=== PATIENT | male | born 1970 | race Caucasian/White ===

== ENCOUNTER 2024-01-27 09:32 | Inpatient (IN) | payer MEDICARE, SELFPAY ==
[2024-01-27] VITALS (7 sets, daily range): BP systolic 107–145; BP diastolic 65–74; PULSE 56–107; RESP 15–20; TEMP 36.9–37.7; O2SAT 95–99; BMI 37.8
--- NOTE | 2024-01-27 09:36 | ED_ITS ---
HPI - General Adult 2 General: Chief complaint: General Medical Stated complaint: fever, vomiting, headache, back pain Time Seen by Provider: 01/27/24 09:35 Source: patient History of Present Illness: 53-year-old male presents emergency room complaining of fever vomiting backache. He states his not been feeling well for the last 6 days he has had nausea and vomiting as well as diarrhea he denies any hematochezia or melena. He is on Xarelto has a history of DVT PE. He send need for hematuria dysuria or frequency Dicesare is concentrated and smells poorly. He has had abdominal cramping and pain radiating into his back. Onset (ago): day(s) (6) Location: abdomen Relieving factors: none Exacerbating factors: none Associated symptoms: Reports nausea, vomiting and weakness; Deny chest pain, confusion, cough, diaphoresis, decreased appetite, dyspnea, fevers/chills, headache(s), malaise, rash, palpitations, seizures, short of breath or syncope Treatments prior to arrival: none Review of Systems 2 Const: Denies: fever(s), chills, malaise or diaphoresis Card: Denies: chest pain, palpitations or syncope Resp: Denies: dyspnea GI: Reports: abdominal pain, nausea, vomiting, diarrhea and GI cramping : Reports: difficulty urinating; Denies: dysuria, urinary frequency or urinary urgency Musc: Denies: neck pain or back pain Skin/Breast: Denies: rash Neuro: Denies: headache(s) or confusion PFS ED 2 PFSH: Medical History (Updated 01/27/24 @ 15:47 by Tomas Alvarenga DO) Obstructive sleep apnea treated with bilevel positive airway pressure (BPAP) Settings 07/06 Diabetic neuropathy History of pulmonary embolism 2006, 1st episode, severe; has had recurrent clotting and in on lifelong anticoagulation with xarelto History of DVT (deep vein thrombosis) 2006, 1st onset, has had recurrent blood clots and is now on chronic anticoagulation with xarelto Dyslipidemia Hypertension Diabetes mellitus, type II, insulin dependent Surgical History (Updated 01/27/24 @ 14:09 by Yola Catalan MD) 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, nonhealing Hx of reduction of orbital fracture History of hip surgery bilateral hips at age 12 for what sounds like recurrent dislocation or dysplasia History of carpal tunnel release of both wrists left x 1, right x 1 History of back surgery low back x 2 Family History (Updated 01/27/24 @ 14:10 by Yola Catalan MD) Mother Colon cancer diagnosis in her early 50s Other Cancer of female organs Diabetes Heart disease Stroke Social History (Updated 01/27/24 @ 14:12 by Yola Catalan MD) Smoking and tobacco/nicotine status: never used tobacco/nicotine Alcohol intake: never Substance/Drug Use: former Former substance use details: has used THC for back pain control & after surgeries in past but none now Caregiver/support person: Yes Physical Exam 2 Const: GENERAL APPEARANCE: cooperative and comfortable O RIENTATION/CONSCIOUSNESS: Yes awake, Yes oriented to person, Yes oriented to place and Yes oriented to time HENMT: COMMON NORMALS: normocephalic, atraumatic and hearing grossly normal bilaterally HEAD & SCALP: normocephalic and atraumatic Resp: COMMON NORMALS: normal respiratory effort, No retractions, No use of accessory muscles and clear to auscultation bilaterally AUSCULTATION: clear to auscultation bilaterally Cardio: COMMON NORMALS: regular rate, regular rhythm and No murmurs present (Cardio) RATE: regular rate RHYTHM: regular rhythm GI: COMMON NORMALS: Soft to palpation and No hepatosplenomegaly present A USCULTATION: Yes normoactive bowel sounds PALPATION: Yes Soft to palpation, No Tenderness to palpation present (GI), No Guarding due to palpation present (GI) and Yes No hepatosplenomegaly present Extremity: COMMON NORMALS: normal to inspection, capillary refill normal, no clubbing, cyanosis or edema, no calf tenderness and no pedal edema Neuro: SENSORIUM/ORIENTATION: Yes oriented to person, Yes oriented to place and Yes oriented to time Skin: OTHER: Left great toe has puncture wounds is red and inflamed and swollen with obvious signs of infection extends proximally to the distal metatarsals Course 2 Vital Signs: Vital signs: Vital Signs Temperature 99.9 F H 01/27/24 09:47 Pulse Rate 98 01/27/24 15:02 Respiratory Rate 18 01/27/24 15:02 Blood Pressure 131/73 01/27/24 15:02 Pulse Oximetry 95 01/27/24 15:02 Oxygen Delivery Me thod Room Air 01/27/24 11:43 MDM - General Adult Medical Decision Making Patient has a mild cystitis additionally has cellulitis of the left great toe spreading proximally to the forefoot is red and inflamed he tells me this only came up within the last day or 2. He initially had not told us about the toe at all. Later in the visit he told us that he had stepped on something found significant swelling when we took his shoe off. Initially thought possibly the cystitis was a source of infection after having reviewed the toe I believe the cellulitis and osteomyelitis underlying is the cause of the infection and fever at this time. Discussed with Dr. Catalan. Admission orders entered. Medical Records I reviewed the patient's medical records. Lab Data I reviewed the patient's lab results. 01/27/24 10:15 01/27/24 10:15 Radiology Impressions Abdomen/Pelvis CT 01/27/24 10:00 IMPRESSION: 1. No hydronephrosis in either kidney. No obstructing renal or ureteral calculi. 2. Small esophageal hernia. 3. Normal appendix. 4. Postoperative changes lower lumbar spine described above. 5. Moderate central canal stenosis at L3-L4 and L4-L5 with disc osteophyte complexes. Chest X-Ray 01/27/24 10:00 IMPRESSION: No acute findings. Duplex Scan Lower Extremity Artery 01/27/24 14:00 IMPRESSION: Patent lower extremity arteries without hemodynamically significant stenosis, with the caveat that the left peroneal artery and left anterior tibial artery were not documented. Foot X-Ray 01/27/24 14:00 IMPRESSION: 1. High concern for osteomyelitis involving the heads of the 2nd and 3rd metatarsals. 2. Erosion and osseous destruction at the tip of the 2nd toe distal phalanx. Highly concerning for osteomyelitis. 3. Severe forefoot and 2nd toe cellulitis/edema. COMMENTS: Consider correlation with MRI. Laboratory Results WBC 15.85 10^3/uL (3.29-11.43) H 01/27/24 10:15 RBC 4.57 10^6/uL (3.85-5.65) 01/27/24 10:15 Hgb 12.90 g/dL (11.27-16.99) 01/27/24 10:15 Hct 39.6 % (37-53) 01/27/24 10:15 MCV 86.7 fl (82-101) 01/27/24 10:15 MCH 28.2 pg (27-33) 01/27/24 10:15 MCHC 32.6 g/dL (30-55) 01/27/24 10:15 RDW 14.2 % (12.1-15.1) 01/27/24 10:15 Plt Count 201 10^3/cmm (157-399) 01/27/24 10:15 MPV 9.5 fL (7.4-10.4) 01/27/24 10:15 Neut % (Auto) 71.4 % 01/27/24 10:15 Lymph % (Auto) 15.3 % 01/27/24 10:15 Hitchcock % (Auto) 11.2 % 01/27/24 10:15 Eos % (Auto) 1.1 % 01/27/24 10:15 Baso % (Auto) 0.4 % 01/27/24 10:15 Neut # (Auto) 11.32 10^3/uL (1.8-7.7) H 01/27/24 10:15 Lymph # (Auto) 2.4 10^3/uL (0.8-4.8) 01/27/24 10:15 Hitchcock # (Auto) 1.8 10^3/uL (0.2-0.9) H 01/27/24 10:15 Eos # (Auto) 0.2 10^3/uL (0.0-0.8) 01/27/24 10:15 Baso # (Auto) 0.1 10^3/uL (0.0-0.1) 01/27/24 10:15 Nucleated RBC % (auto) 0 % 01/27/24 10:15 Nucleated RBCs # 0.0 /100WBC 01/27/24 10:15 Sodium 133 mmol/L (136-145) L 01/27/24 10:15 Potassium 4.2 mmol/L (3.5-5.1) 01/27/24 10:15 Chloride 97 mmol/L (98-107) L 01/27/24 10:15 Carbon Dioxide 25 mmol/L (22-29) 01/27/24 10:15 Anion Gap 15.2 (5-19) 01/27/24 10:15 BUN 12 mg/dL (6-20) 01/27/24 10:15 Creatinine 1.0 mg/dL (0.7-1.2) 01/27/24 10:15 GFR Calculation 78.2 mL/min (90-130) L 01/27/24 10:15 Glucose 257 mg/dL (65-115) H 01/27/24 10:15 Calculated Osmolality 285 mOsm/kg (285-295) 01/27/24 10:15 Lactic Acid 2.5 mmol/L (0.5-2.2) H 01/27/24 10:15 Lactic Acid (Sepsis) 1.8 mmol/L (0.5-2.2) 01/27/24 13:42 Calcium 8.6 mg/dL (8.5-10.5) 01/27/24 10:15 Magnesium 1.6 mg/dL (1.7-2.3) L 01/27/24 10:15 Total Bilirubin 0.6 mg/dL (0.15-1.2) 01/27/24 10:15 AST 15 U/L (0-40) 01/27/24 10:15 ALT 23 U/L (0-41) 01/27/24 10:15 Alkaline Phosphatase 81 U/L (40-130) 01/27/24 10:15 Creatine Kinase 183 U/L (39-308) 01/27/24 10:15 Troponin T 5th Gen ng/L 33 ng/L (0-15) H 01/27/24 13:42 Total Protein 7.6 g/dL (6.6-8.7) 01/27/24 10:15 Albumin 3.7 g/dL (3.5-5.2) 01/27/24 10:15 Globulin 3.9 g/dL (1.3-4.6) 01/27/24 10:15 Lipase 26 U/L (13-60) 01/27/24 10:15 Urine Color Yellow (Yellow) 01/27/24 11:50 Urine Appearance Clear (CLEAR) 01/27/24 11:50 Urine pH 5 (5-7) 01/27/24 11:50 Ur Specific Lowry 1.015 (1.005-1.030) 01/27/24 11:50 Urine Protein Trace (Negative) 01/27/24 11:50 Urine Glucose (UA) 4+ (Normal) H 01/27/24 11:50 Urine Ketones 1+ (Negative) H 01/27/24 11:50 Urine Blood Neg (Negative) 01/27/24 11:50 Urine Nitrate Positive (Negative) H 01/27/24 11:50 Urine Bilirubin Neg (Negative) 01/27/24 11:50 Urine Urobilinogen 1 mg/dL (Negative) H 01/27/24 11:50 Ur Leukocyte Esterase Negative (Negative) 01/27/24 11:50 Urine RBC None /hpf (0-2) 01/27/24 11:50 Urine WBC None /hpf (0-5) 01/27/24 11:50 Ur Squamous Epith Cells Rare /hpf (0-5) 01/27/24 11:50 Amorphous Sediment Not Reportable 01/27/24 11:50 Urine Bacteria 1+ /hpf (NONE) H 01/27/24 11:50 Urine Mucus 1+ /hpf 01/27/24 11:50 Adenovirus (PCR) Not detected (NOT DETECT) 01/27/24 13:20 C. pneumoniae DNA (PCR) Not detected (NOT DETECT) 01/27/24 13:20 Coronavirus 229E (PCR) Not detected (NOT DETECT) 01/27/24 13:20 Human Metapneumovir PCR Not detected (NOT DETECT) 01/27/24 13:20 Influenza A (H1) PCR Not detected (NOT DETECT) 01/27/24 13:20 Influ A (H1/09) PCR Not detected (NOT DETECT) 01/27/24 13:20 Influenza A (H3) PCR Not detected (NOT DETECT) 01/27/24 13:20 Influenza Type A (PCR) Not detected (NOT DETECT) 01/27/24 13:20 Influenza Type B (PCR) Not detected (NOT DETECT) 01/27/24 13:20 M. pneumoniae (PCR) Not detected (NOT DETECT) 01/27/24 13:20 Parainfluenza 1 (PCR) Not detected (NOT DETECT) 01/27/24 13:20 Parainfluenza 2 (PCR) Not detected (NOT DETECT) 01/27/24 13:20 Parainfluenza 3 (PCR) Not detected (NOT DETECT) 01/27/24 13:20 Parainfluenza 4 (PCR) Not detected (NOT DETECT) 01/27/24 13:20 RSV Type A (PCR) Not detected (NOT DETECT) 01/27/24 13:20 RSV Type B (PCR) Not detected (NOT DETECT) 01/27/24 13:20 Entero/Rhino (PCR) Not detected (NOT DETECT) 01/27/24 13:20 SARS-CoV-2 (PCR) Not detected (NOT DETECT) 01/27/24 13:20 All radiology interpretation(s) finalized by discharge Discharge Plan Discharge Patient Disposition: Admitted As Inpatient Admit Provider: Yola Catalan Clinical Impression: Cellulitis of toe of left foot, Diabetic neuropathy, Diabetes mellitus, type II, insulin dependent, Cystitis Condition: Stable Coding Level of Care Code ED Cephalometric Analyst for Tavo Rodrigues
--- NOTE | 2024-01-27 10:00 | XRR_ITS ---
PROCEDURE INFORMATION: Exam: XR Chest Exam date and time: 01/27/2024 10:05 AM Age: 53 years old Clinical indication: Cough and dyspnea; Additional info: Dyspnea/cough TECHNIQUE: Imaging protocol: Radiologic exam of the chest. Views: 1 view. COMPARISON: No relevant prior studies available. FINDINGS: Lungs: Unremarkable. No consolidation. Pleural spaces: Unremarkable. No pleural effusion. No pneumothorax. Heart/Mediastinum: Unremarkable. No cardiomegaly. Bones/joints: Unremarkable. XR/XR chest 1V portable [id number] IMPRESSION: No acute findings.
--- NOTE | 2024-01-27 10:00 | CT_ITS ---
WS: [id number] CT ABDOMEN PELVIS TECHNIQUE: Noncontrast CT of the abdomen and pelvis with coronal and sagittal reformatted images. CLINICAL INFORMATION: Abdominal pain COMPARISON: None. DLP: 1308.[address] scans at [facility] use at least one of these dose optimization techniques: automated e xposure control; mA and/or kV adjustment per patient size (includes targeted exams where dose is matc hed to clinical indication); or iterative reconstruction. FINDINGS: Hepatomegaly. Normal noncontrast liver. Small esophageal hernia. Noncontrast spleen is normal. Spleni c artery calcification. Adrenal glands are normal. No hydronephrosis in either kidney. No obstructing renal or ureteral calculi. Normal caliber abdominal aorta. Urine distended bladder. Normal appendix in the RIGHT lower quadrant. Small LEFT renal cyst. Lung bases are well aerated. Prior postoperative changes pedicle screw fixation L5-S1 with interbody fusion graft. Disc osteophyte complexes L3-L4 and L4-L5 with moderate central canal stenosis. Mild ce ntral canal stenosis L2-3 with mild disc bulging. CT/CT abdomen pelvis con [id number] IMPRESSION: 1. No hydronephrosis in either kidney. No obstructing renal or ureteral calcul i. 2. Small esophageal hernia. 3. Normal appendix. 4. Postoperative changes lower lumbar spine described above. 5. Moderate central canal stenosis at L3-L4 and L4-L5 with disc osteophyte com plexes.
[2024-01-27 10:22] LABS: Basophils # 0.1 10^3/uL (0.0-0.1); Basophils % 0.4 %; Eosinophils # 0.2 10^3/uL (0.0-0.8); Eosinophils % 1.1 %; Hematocrit 39.6 % (37-53); Lymphocytes # 2.4 10^3/uL (0.8-4.8); Lymphocytes % 15.3 %; Mean Corpuscular HGB Conc 32.6 g/dL (30-55); Mean Corpuscular Hemoglobin 28.2 pg (27-33); Mean Corpuscular Volume 86.7 fl (82-101); Mean Platelet Volume 9.5 fL (7.4-10.4); Monocytes # 1.8 10^3/uL (0.2-0.9); Monocytes % 11.2 %; Neutrophils # 11.32 10^3/uL (1.8-7.7); Neutrophils % 71.4 %; Nucleated Red Blood Cells % 0 %; Platelet Count 201 10^3/cmm (157-399); Red Blood Count 4.57 10^6/uL (3.85-5.65); Red Cell Distribution Width 14.2 % (12.1-15.1); White Blood Count 15.85 10^3/uL (3.29-11.43)
[2024-01-27 10:40] LABS: Lactic Sepsis W/Reflex 2.5 mmol/L (0.5-2.2)
[2024-01-27 10:41] LABS: Alanine Aminotransferase 23 U/L (0-41); Albumin Level 3.7 g/dL (3.5-5.2); Alkaline Phosphatase 81 U/L (40-130); Anion Gap 15.2 (5-19); Aspartate Amino Transferase 15 U/L (0-40); Blood Urea Nitrogen 12 mg/dL (6-20); Calcium 8.6 mg/dL (8.5-10.5); Carbon Dioxide 25 mmol/L (22-29); Chloride 97 mmol/L (98-107); Creatine Phosphokinase 183 U/L (39-308); Creatinine Clr Calc Pharmacy 124.2698; Globulin 3.9 g/dL (1.3-4.6); Glomerular Filtration Rate 78.2 mL/min (90-130); Glucose 257 mg/dL (65-115); Lipase 26 U/L (13-60); Magnesium 1.6 mg/dL (1.7-2.3); Osmolality Calculated 285 mOsm/kg (285-295); Potassium 4.2 mmol/L (3.5-5.1); Sodium 133 mmol/L (136-145); Total Bilirubin 0.6 mg/dL (0.15-1.2); Total Protein 7.6 g/dL (6.6-8.7)
[2024-01-27] MEDS: cefTRIAXone 1,000 MG in sodium chloride 0.9% (plus) 50 ML 100 MG IV (11:27)
[2024-01-27 12:06] LABS: Reflex Lactate Order REFLEX LACTIC ORDERD
[2024-01-27 12:33] LABS: Glucose Urine UA 4+ (Normal); Protein Urine Trace (Negative); Specific Gravity, Urine 1.015 (1.005-1.030); Urine Appearance Clear (CLEAR); Urine Color Yellow (Yellow); pH Urine 5 (5-7)
[2024-01-27 12:34] LABS: Add Urine Microscopic? YES; Bacteria Urine 1+ /hpf; Bilirubin Urine Neg (Negative); Blood Urine Neg (Negative); Ketones Urine 1+ (Negative); Leukocyte Esterase Urine Negative (Negative); Mucus Urine 1+ /hpf; Nitrate Urine Positive (Negative); Squamous Epithelial Cell Urine RARE /hpf (0-5); Urobilinogen Urine 1 mg/dL (Negative)
[2024-01-27] MEDS: acetaminophen 500 mg Tablet 1000 MG PO (12:48)
--- NOTE | 2024-01-27 13:03 | ECG_ITS ---
[facility] Test Date: 2024-01-27 Pat Name: Zach Crespo Department: Room: Gender: Male Adult Neuropsychologist: : 1970 Requested By: Tomas Wolff Order Number: [id number] Karin MD: Srinivasan Arias M.D. Measurements Intervals Winger Rate: 96 P: 58 TX: 246 QRS: 111 QRSD: 112 T: -5 QT: 349 QTc: 441 Interpretive Statements SINUS RHYTHM WITH FIRST DEGREE AV BLOCK POSSIBLE RIGHT VENTRICULAR HYPERTROPHY [SOME/ALL OF: PROMINENT R IN V1, LATE TRANSITION, RAD, JOHN, SSS] ABNORMAL QRS-T ANGLE [QRS-T AXIS DIFFERENCE > 60] No previous ECG available for comparison Electronically Signed On 01-27-2024 17:19:20 CDT by Srinivasan Arias M.D. [email or web address]
--- NOTE | 2024-01-27 13:20 | PM.HP ---
Providers/Chief Complaint Admitting Physician: Yola Catalan MD Primary Care Provider: Alejandrina Omalley Chief Complaint: fever, vomiting, headache, back pain History of Present Illness Zach Crespo is a 53 year old male who presented to the emergency room with chief complaint of not feeling well for close to a week. He describes being excessively tired and fatigued. He has had increase in his baseline low back pain as well as some hip pain. He has had surgery in both areas but has had more difficulty getting comfortable lately. He has had significant belching and flatulence but denies any diarrhea or vomiting. He started having subjective fevers 2 to 3 days ago. At times he is dizzy with position changes and is noted some hyperventilation and palpitations. He has had a mild cough productive of clearish phlegm. No blood has been noted. Denies any difficulty urinating. He has had decreased appetite. It was the overall malaise that had him come in today. Workup in the emergency room revealed the possibility of urinary tract infection with positive nitrates on urinalysis but Mr. Crespo denies any urinary symptoms beyond noting his urine has been more concentrated lately. He had an elevated lactic acid but stable vital signs. White count was elevated. He received IV fluids and some Rocephin in the emergency room and request was made for admission for further evaluation and treatment. During my evaluation Mr. Crespo mentioned he stepped on a metal screw 2 to 3 weeks ago with the screw extending may be in eighth of an inch into his left foot. It has been slow to heal. Additionally he attempted to cut the nails to his left foot and cut the tip of the second digit and fourth digit in the process. Upon evaluating the foot with his sock off he was surprised to see that the second toe of the left foot was quite swollen and extensively erythematous. Both him and his mother who were present in the room said that the toe did not look like that yesterday just had dry scaling skin from where he had cut it trimming his nails. He has had previous left great toe amputation due to an acute infectious process. This was performed in [facility] where he is from. He does describe some pain in both of his legs. 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 He has been using his compression stockings lately due to the discomfort in his legs. No increase in swelling has been noted however. Review of Systems General: Reports: Other (ROS as per HPI or as otherwise noted here) Medications/Allergies Home Medications Medication Instructions Recorded Confirmed Last Taken Type amlodipine 5 mg tablet 5 mg PO DAILY 01/27/24 01/27/24 01/27/24 History atorvastatin 40 mg tablet 40 mg PO QPM 01/27/24 01/27/24 01/26/24 History dulaglutide 3 mg/0.5 mL 3 mg SUBCUT Q7D 01/27/24 01/27/24 01/25/24 History subcutaneous pen injector (Trulicity) gabapentin 300 mg capsule 600 mg PO BID 01/27/24 01/27/24 01/27/24 History hydrochlorothiazide 25 mg tablet 25 mg PO DAILY 01/27/24 01/27/24 01/27/24 History insulin glargine 100 unit/mL (3 75 unit SUBCUT BID 01/27/24 01/27/24 01/27/24 History mL) subcutaneous pen (Lantus Solostar U-100 Insulin) insulin lispro 100 unit/mL See Rx Instructions .Route .COMPLEX 01/27/24 01/27/24 01/27/24 History subcutaneous pen (Humalog KwikPen (U-100) Insulin) lisinopril 5 mg tablet 5 mg PO DAILY 01/27/24 01/27/24 01/27/24 History metformin 1,000 mg tablet 1,000 mg PO BID 01/27/24 01/27/24 01/27/24 History rivaroxaban 20 mg tablet (Xarelto) 20 mg PO BEDTIME 01/27/24 01/27/24 01/26/24 History venlafaxine 75 mg capsule,extended 75 mg PO DAILY 01/27/24 01/27/24 01/27/24 History release 24 hr Allergies Allergy/AdvReac Type Severity Reaction Status Date / Time No Known Allergies Allergy Verified 01/27/24 09:51 PFSH Acute PFSH: Medical History (Updated 01/27/24 @ 16:43 by Kenny Wesley DPM) Obstructive sleep apnea treated with bilevel positive airway pressure (BPAP) Settings 07/06 Diabetic neuropathy History of pulmonary embolism 2006, 1st episode, severe; has had recurrent clotting and in on lifelong anticoagulation with xarelto History of DVT (deep vein thrombosis) 2006, 1st onset, has had recurrent blood clots and is now on chronic anticoagulation with xarelto Dyslipidemia Hypertension Diabetes mellitus, type II, insulin dependent Surgical History (Updated 01/27/24 @ 20:05 by Yola Catalan MD) 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, nonhealing Hx of reduction of orbital fracture History of hip surgery bilateral hips at age 12 for what sounds like recurrent dislocation or dysplasia History of carpal tunnel release of both wrists left x 1, right x 1 History of back surgery low back x 2 Family History (Updated 01/27/24 @ 14:10 by Yola Catalan MD) Mother Colon cancer diagnosis in her early 50s Other Cancer of female organs Diabetes Heart disease Stroke Social History (Updated 01/27/24 @ 14:12 by Yola Catalan MD) Smoking and tobacco/nicotine status: never used tobacco/nicotine Alcohol intake: never Substance/Drug Use: former Former substance use details: has used THC for back pain control & after surgeries in past but none now Caregiver/support person: Yes Vitals/I&O/Wt Last Vital Signs Temp 99.9 F H 01/27/24 09:47 Pulse 56 L 01/27/24 11:43 Resp 16 01/27/24 11:43 BP 107/65 01/27/24 11:43 Pulse Ox 98 01/27/24 11:43 O2 Del Method Room Air 01/27/24 11:43 01/26/24 01/27/24 01/27/24 22:59 06:59 14:59 Intake Total 50 / 50 Balance 50 / 50 Weight last 48 hrs Weight 133.81 kg Physical Exam Narrative: Patient is awake and alert, able to provide history. Normocephalic. Extraocular movements are intact. Oropharynx with moist mucous membranes. Neck is large but supple. Lungs are clear to auscultation without any rales rhonchi or wheezes noted cardiovascular exam reveals a regular rhythm, bradycardic without any murmurs. Abdomen is soft, nontender with positive bowel sounds. No flank tenderness. Trace pitting edema noted to bilateral lower extremities. Compression stockings removed during evaluation as were his socks. See below picture for skin exam. Area around the left second toe is warm to touch. No focal area of fluctuance noted at this time. Streaking is extending to midfoot. Skin: NARRATIVE SKIN EXAM: Bottom of left foot Top of left foot Data 01/27/24 10:15 01/27/24 10:15 Other Labs: Radiology Impressions Abdomen/Pelvis CT 01/27/24 10:00 IMPRESSION: 1. No hydronephrosis in either kidney. No obstructing renal or ureteral calculi. 2. Small esophageal hernia. 3. Normal appendix. 4. Postoperative changes lower lumbar spine described above. 5. Moderate central canal stenosis at L3-L4 and L4-L5 with disc osteophyte complexes. Chest X-Ray 01/27/24 10:00 IMPRESSION: No acute findings. Laboratory Results WBC 15.85 10^3/uL (3.29-11.43) H 01/27/24 10:15 RBC 4.57 10^6/uL (3.85-5.65) 01/27/24 10:15 Hgb 12.90 g/dL (11.27-16.99) 01/27/24 10:15 Hct 39.6 % (37-53) 01/27/24 10:15 MCV 86.7 fl (82-101) 01/27/24 10:15 MCH 28.2 pg (27-33) 01/27/24 10:15 MCHC 32.6 g/dL (30-55) 01/27/24 10:15 RDW 14.2 % (12.1-15.1) 01/27/24 10:15 Plt Count 201 10^3/cmm (157-399) 01/27/24 10:15 MPV 9.5 fL (7.4-10.4) 01/27/24 10:15 Neut % (Auto) 71.4 % 01/27/24 10:15 Lymph % (Auto) 15.3 % 01/27/24 10:15 Cavalier % (Auto) 11.2 % 01/27/24 10:15 Eos % (Auto) 1.1 % 01/27/24 10:15 Baso % (Auto) 0.4 % 01/27/24 10:15 Neut # (Auto) 11.32 10^3/uL (1.8-7.7) H 01/27/24 10:15 Lymph # (Auto) 2.4 10^3/uL (0.8-4.8) 01/27/24 10:15 Cavalier # (Auto) 1.8 10^3/uL (0.2-0.9) H 01/27/24 10:15 Eos # (Auto) 0.2 10^3/uL (0.0-0.8) 01/27/24 10:15 Baso # (Auto) 0.1 10^3/uL (0.0-0.1) 01/27/24 10:15 Nucleated RBC % (auto) 0 % 01/27/24 10:15 Nucleated RBCs # 0.0 /100WBC 01/27/24 10:15 Sodium 133 mmol/L (136-145) L 01/27/24 10:15 Potassium 4.2 mmol/L (3.5-5.1) 01/27/24 10:15 Chloride 97 mmol/L (98-107) L 01/27/24 10:15 Carbon Dioxide 25 mmol/L (22-29) 01/27/24 10:15 Anion Gap 15.2 (5-19) 01/27/24 10:15 BUN 12 mg/dL (6-20) 01/27/24 10:15 Creatinine 1.0 mg/dL (0.7-1.2) 01/27/24 10:15 GFR Calculation 78.2 mL/min (90-130) L 01/27/24 10:15 Glucose 257 mg/dL (65-115) H 01/27/24 10:15 Calculated Osmolality 285 mOsm/kg (285-295) 01/27/24 10:15 Lactic Acid 2.5 mmol/L (0.5-2.2) H 01/27/24 10:15 Calcium 8.6 mg/dL (8.5-10.5) 01/27/24 10:15 Magnesium 1.6 mg/dL (1.7-2.3) L 01/27/24 10:15 Total Bilirubin 0.6 mg/dL (0.15-1.2) 01/27/24 10:15 AST 15 U/L (0-40) 01/27/24 10:15 ALT 23 U/L (0-41) 01/27/24 10:15 Alkaline Phosphatase 81 U/L (40-130) 01/27/24 10:15 Creatine Kinase 183 U/L (39-308) 01/27/24 10:15 Total Protein 7.6 g/dL (6.6-8.7) 01/27/24 10:15 Albumin 3.7 g/dL (3.5-5.2) 01/27/24 10:15 Globulin 3.9 g/dL (1.3-4.6) 01/27/24 10:15 Lipase 26 U/L (13-60) 01/27/24 10:15 Urine Color Yellow (Yellow) 01/27/24 11:50 Urine Appearance Clear (CLEAR) 01/27/24 11:50 Urine pH 5 (5-7) 01/27/24 11:50 Ur Specific Regent 1.015 (1.005-1.030) 01/27/24 11:50 Urine Protein Trace (Negative) 01/27/24 11:50 Urine Glucose (UA) 4+ (Normal) H 01/27/24 11:50 Urine Ketones 1+ (Negative) H 01/27/24 11:50 Urine Blood Neg (Negative) 01/27/24 11:50 Urine Nitrate Positive (Negative) H 01/27/24 11:50 Urine Bilirubin Neg (Negative) 01/27/24 11:50 Urine Urobilinogen 1 mg/dL (Negative) H 01/27/24 11:50 Ur Leukocyte Esterase Negative (Negative) 01/27/24 11:50 Urine RBC None /hpf (0-2) 01/27/24 11:50 Urine WBC None /hpf (0-5) 01/27/24 11:50 Ur Squamous Epith Cells Rare /hpf (0-5) 01/27/24 11:50 Amorphous Sediment Not Reportable 01/27/24 11:50 Urine Bacteria 1+ /hpf (NONE) H 01/27/24 11:50 Urine Mucus 1+ /hpf 01/27/24 11:50 Micro: Microbiology 01/27/24 10:45 Blood Culture - Preliminary Blood SPECIMEN COLLECTED 01/27/24 10:25 Blood Culture - Preliminary Blood SPECIMEN COLLECTED A&P Assessment and plan (1) Cellulitis of toe of left foot: Second digit. Status post prior amputation of the left first digit due to infection. Source of infection may be from recent stepping on a metal screw or attempting to clip his nails on that foot. Cannot rule out contiguous infection from prior first toe wound. That amputation was roughly a year ago by history. Patient and his mother indicate that the toe looked normal except for the scabbing from the cuts yesterday. Concerned about early abscess formation and even deeper infection given systemic symptoms and early indicators of at least systemic inflammatory response syndrome with elevated white blood count and lactic acid but normal vital signs at this time. Has had subjective fevers. (2) Diabetes mellitus, type II, insulin dependent: With peripheral neuropathy and likely chronic kidney disease stage II which would be a new diagnosis, currently with hyperglycemia. Chronically on U100 Lantus, Humalog, Trulicity and metformin. (3) Diabetic neuropathy: Severe, involving hands and feet, chronically on gabapentin (4) Chronic anticoagulation: Chronically on Xarelto secondary to history of recurrent PEs and DVTs dating back to 2006. Anticoagulation will be lifelong for him. (5) Hypertension: Primary hypertension managed with amlodipine and lisinopril along with hydrochlorothiazide (6) Dyslipidemia: Chronically on statin therapy (7) Obstructive sleep apnea treated with bilevel positive airway pressure (BPAP): Chronically on BiPAP with settings 07/06 which he uses regularly (8) BMI 37.0-37.9, adult: Plan Hypomagnesemia Moderate acute dehydration versus chronic kidney disease stage 2 Abnormal urinalysis with positive nitrates but no urinary symptoms or pyuria noted Inpatient admission Check plain films of right foot Podiatry consultation For the time being we will continue Rocephin and add vancomycin Continue insulin therapy for diabetes Holding Trulicity and metformin Check hemoglobin A1c Continue home gabapentin Currently continuing Xarelto pending evaluation by podiatry; may require surgical intervention on his foot which will necessitate holding of Xarelto Holding home hydrochlorothiazide and lisinopril currently secondary to GFR of 78 and low normal blood pressures in the setting of infection though will need to monitor for resumption Continuing some IV fluids presently Continue home amlodipine Continue home statin therapy Will order BiPAP with sleep, okay to bring in home device if more comfortable for him Will replace magnesium Repeat renal function studies in the morning Tetanus vaccination booster discussed with patient and will be ordered VTE prophylaxis: Chronically on Xarelto GI Prophylaxis: PPI Antibiotics: Received Rocephin in the ED and vancomycin was added to this both on 01/26 Pending studies: Plain film of the left foot, a.m. labs including A1c, CRP and sed rate, blood cultures Telemetry: not currently indicated Guerrero: not currently indicated Line(s): peripheral IVs Disposition plan: Home with outpatient follow up to both primary care and podiatry anticipated plus or minus wound care should he require surgical intervention Code Status: Full Code Supportive care otherwise Findings, concerns and plans were discussed with patient and his mother and they were both given an opportunity to ask questions During our discussion it came to light that patient's mother was diagnosed with colon cancer in her 50s. Patient has never had a colonoscopy. Reviewed with him risk of not getting regular colonoscopies when you have a first-degree relative with a history of colon cancer. Discussed the benefits of identifying cancer early to avoid chemotherapy and other treatments which can impact over all health. Patient indicated that he would work on getting a colonoscopy set up after this infection clears. Attestations Medical Necessity Statement*: Currently anticipate a stay greater than 2 midnights in this gentleman presenting with symptoms as described but found to have cellulitis and likely early abscess formation in the left foot second digit. He has had prior left great toe amputation due to infection. Known diabetic and recently had trauma to the left foot from stepping on a screw and attempting to cut his toenails. Had markers of at least systemic inflammatory response syndrome if not early sepsis by sep 1 criteria though not meeting sepsis 3 criteria at the time of admission. At risk of rapid clinical decline without appropriate intervention including Parenteral antibiotic therapy given comorbidities and prior history as well as clinical findings on today's exam. Diagnoses Cellulitis of toe of left foot L03.032 Diabetes mellitus, type II, insulin dependent E11.9; Z79.4 Diabetic neuropathy E11.40 Chronic anticoagulation Z79.01 Hypertension I10 Dyslipidemia E78.5 Obstructive sleep apnea treated with bilevel positive airway pressure (BPAP) G47.33 BMI 37.0-37.9, adult Z68.37
--- NOTE | 2024-01-27 14:00 | USCV_ITS ---
Zach Crespo Age: 53 Gender: M : 1970 Exam Date: 01/27/2024 14:27 Ordering Phys: Yola Catalan MD Technologist: Exam Location: [facility] [place] Indication: lt leg pain and swelling PROCEDURES: Venous duplex imaging was performed in only the left lower extremity. The following venous structures were evaluated: common femoral vein, profunda vein, proximal portion of the greater saphenous vein, superficial femoral vein, and the popliteal vein. In addition, the posterior tibial and peroneal trunk were evaluated. FINDINGS: Normal 2-D Doppler and augmentation and compressibility throughout the lower extremity venous structures. Additional imaging through the proximal calf veins also reveals no thrombus. Limited evaluation of the greater saphenous vein is patent with no thrombus. CONCLUSIONS No evidence of left lower extremity DVT. Sanjiv Reyes MD (Electronically Signed) Final Date: 27 January 2024 16:32 S
--- NOTE | 2024-01-27 14:00 | USR_ITS ---
PROCEDURE INFORMATION: Exam: US Duplex Left Lower Extremity Arteries Or Arterial Bypass Grafts Exam date and time: 01/27/2024 2:40 PM Age: 53 years old Clinical indication: Pain; Leg, lower; Left; Additional info: HX blood clots, prior toe amp, cellulitic toe again TECHNIQUE: Imaging protocol: Left Real-time duplex scan of the arteries or arterial bypass grafts of the left lower extremity with 2-D sierra scale, color Doppler flow and spectral waveform analysis. Images documented and saved. COMPARISON: CT abdomen pelvis wo con [id number] 01/27/2024 10:28 AM FINDINGS: Left external iliac artery: Patent left common iliac artery without hemodynamically significant stenosis. Left common femoral artery: Patent left common femoral artery without stenosis. Left superficial femoral artery: Patent left superficial femoral artery without stenosis. Left popliteal artery: Patent left popliteal artery without hemodynamically significant stenosis. Left calf/foot arteries: Patent left posterior tibial artery, however with monophasic waveforms. No hemodynamically significant stenosis. Patent left dorsalis pedis artery, however with monophasic waveforms. No hemodynamically significant stenosis. Left peroneal artery was not documented. Left anterior tibial artery was not documented. US/[place] [id number] IMPRESSION: Patent lower extremity arteries without hemodynamically significant stenosis, with the caveat that the left peroneal artery and left anterior tibial artery were not documented.
--- NOTE | 2024-01-27 14:00 | XRR_ITS ---
PROCEDURE INFORMATION: Exam: XR Left Foot Exam date and time: 01/27/2024 2:04 PM Age: 53 years old Clinical indication: Pain; Foot; Prior surgery; Surgery date: 6+ months; Surgery type: Left great toe; Additional info: Cellulitis 2nd digit (does not have 1st digit), diabetic, sepsis indicators, suspect this is area of TECHNIQUE: Imaging protocol: Radiologic exam of the left foot. Views: 3 or more views. COMPARISON: No relevant prior studies available. FINDINGS: Bones/joints: Prior greater toe mid metatarsal amputation. No aggressive lesions or erosions at the amputation stump. Lysis and cortical destruction at the heads of the 2nd and 3rd metatarsals, worse at the 2nd metatarsal where there are also chronic ossifications. Erosion and osseous destruction at the tip of the 2nd toe distal phalanx. No other osseous destruction. No displaced fractures. Small plantar calcaneal spur and posterior calcaneal enthesophyte. There is no evidence of joint dislocation. Soft tissues: Severe soft tissue swelling at the forefoot and at the 2nd toe. XR/XR foot LT min 3V* [id number] IMPRESSION: 1. High concern for osteomyelitis involving the heads of the 2nd and 3rd metatarsals. 2. Erosion and osseous destruction at the tip of the 2nd toe distal phalanx. Highly concerning for osteomyelitis. 3. Severe forefoot and 2nd toe cellulitis/edema. COMMENTS: Consider correlation with MRI.
[2024-01-27 14:11] LABS: Lactic Acid level (Lactate) 1.8 mmol/L (0.5-2.2)
[2024-01-27 14:27] LABS: Troponin T (5th) Once 33 ng/L (0-15)
--- NOTE | 2024-01-27 14:58 | PM.CONSULT ---
Providers/Reason For Consult Consulting Physician/Specialty*: Kenny Wesley D.P.M./podiatry Reason for Consult*: Diabetic foot infection, left foot Attending Physician: Yola Catalan MD Primary Care Provider: Alejandrina Omalley History of Present Illness History of Present Illness Zach Crespo is a 53 year old male presents with malaise, reports a wound at the left second toe with redness and swelling also reports a puncture wound at the left foot from stepping on a screw. States that redness and swelling became intense yesterday at the second toe. History of left great toe amputation performed in [facility] performed in 2022. He has a history of deep vein thrombosis, history of pulmonary embolism currently on Xarelto for this. Patient reports vomiting, diarrhea and general malaise. Review of Systems General: Reports: 10 or more systems reviewed and unremarkable except in HPI and below Const: Denies: fever(s) or chills Eyes: Denies: change in vision Card: Denies: chest pain or palpitations Resp: Denies: dyspnea or productive cough GI: Denies: abdominal pain, nausea or vomiting : Denies: flank pain Musc: Reports: extremity swelling, joint stiffness and deformity Skin/Breast: Reports: erythema, sores, changes in skin color, dry skin, nail changes and change in hair Neuro: Reports: numbness in extremities, sensory changes and difficulty walking Psych: Denies: suicidal ideation Endo: Denies: change in body appearance Carlos Eduardo/Lymph: Denies: tender lymph nodes Medications/Allergies Home Medications Medication Instructions Recorded Confirmed Last Taken Type amlodipine 5 mg tablet 5 mg PO DAILY 01/27/24 01/27/24 01/27/24 History atorvastatin 40 mg tablet 40 mg PO QPM 01/27/24 01/27/24 01/26/24 History dulaglutide 3 mg/0.5 mL 3 mg SUBCUT Q7D 01/27/24 01/27/24 01/25/24 History subcutaneous pen injector ([facility]) gabapentin 300 mg capsule 600 mg PO BID 01/27/24 01/27/24 01/27/24 History hydrochlorothiazide 25 mg tablet 25 mg PO DAILY 01/27/24 01/27/24 01/27/24 History insulin glargine 100 unit/mL (3 75 unit SUBCUT BID 01/27/24 01/27/24 01/27/24 History mL) subcutaneous pen (Lantus Solostar U-100 Insulin) insulin lispro 100 unit/mL See Rx Instructions .Route .COMPLEX 01/27/24 01/27/24 01/27/24 History subcutaneous pen (Humalog KwikPen (U-100) Insulin) lisinopril 5 mg tablet 5 mg PO DAILY 01/27/24 01/27/24 01/27/24 History metformin 1,000 mg tablet 1,000 mg PO BID 01/27/24 01/27/24 01/27/24 History rivaroxaban 20 mg tablet (Xarelto) 20 mg PO BEDTIME 01/27/24 01/27/24 01/26/24 History venlafaxine 75 mg capsule,extended 75 mg PO DAILY 01/27/24 01/27/24 01/27/24 History release 24 hr Allergies Allergy/AdvReac Type Severity Reaction Status Date / Time No Known Allergies Allergy Verified 01/27/24 09:51 PFSH Acute PFSH: Medical History (Updated 01/27/24 @ 16:43 by Kenny Wesley DPM) Obstructive sleep apnea treated with bilevel positive airway pressure (BPAP) Settings 07/06 Diabetic neuropathy History of pulmonary embolism 2006, 1st episode, severe; has had recurrent clotting and in on lifelong anticoagulation with xarelto History of DVT (deep vein thrombosis) 2006, 1st onset, has had recurrent blood clots and is now on chronic anticoagulation with xarelto Dyslipidemia Hypertension Diabetes mellitus, type II, insulin dependent Surgical History (Updated 01/27/24 @ 14:09 by Yola Catalan MD) 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, nonhealing Hx of reduction of orbital fracture History of hip surgery bilateral hips at age 12 for what sounds like recurrent dislocation or dysplasia History of carpal tunnel release of both wrists left x 1, right x 1 History of back surgery low back x 2 Family History (Updated 01/27/24 @ 14:10 by Yola Catalan MD) Mother Colon cancer diagnosis in her early 50s Other Cancer of female organs Diabetes Heart disease Stroke Social History (Updated 01/27/24 @ 14:12 by Yola Catalan MD) Smoking and tobacco/nicotine status: never used tobacco/nicotine Alcohol intake: never Substance/Drug Use: former Former substance use details: has used THC for back pain control & after surgeries in past but none now Caregiver/support person: Yes Vitals/I&O/Wt Last Vital Signs Temp 99.9 F H 01/27/24 09:47 Pulse 56 L 01/27/24 11:43 Resp 16 01/27/24 11:43 BP 107/65 01/27/24 11:43 Pulse Ox 98 01/27/24 11:43 O2 Del Method Room Air 01/27/24 11:43 01/26/24 01/27/24 01/27/24 22:59 06:59 14:59 Intake Total 50 / 50 Balance 50 / 50 Weight last 48 hrs Weight 295 lb Physical Exam Narrative: GENERAL: Patient is alert and oriented ?3 and in no acute distress. The following is a focused bilateral lower extremity exam. VASCULAR: Dorsalis pedis palpable bilaterally. posterior tibial arteries palpable. Less than 5-second capillary refill left second toe. Capillary refill right great toe less than 3 seconds. Decreased pedal hair growth bilaterally. NEUROLOGICAL: Protective sensation intact 0/10 sites, tested with [place] [employer] monofilament to bilateral feet. DERMATOLOGICAL: Wound at the distal tuft of the left second toe probes directly to bone, the entirety of the second toe has erythema, purulent drainage expressed from the wound of the left second toe, wound measures 3 mm x 3 mm x 4 mm and probes to the distal tuft of the distal phalanx. Puncture wound left plantar midfoot probes 3 mm deep, no periwound erythema and no purulent drainage expressed from puncture wound. MUSCULOSKELETAL: History of left partial first ray amputation. Hammertoe contracture of left second toe. No pain to palpation left second toe and no pain with debridement left second toe secondary to neuropathy. Data 01/27/24 10:15 01/27/24 10:15 Micro: Microbiology 01/27/24 10:45 Blood Culture - Preliminary Blood SPECIMEN COLLECTED 01/27/24 10:25 Blood Culture - Preliminary Blood SPECIMEN COLLECTED A&P Assessment and plan (1) Diabetic peripheral neuropathy associated with type 2 diabetes mellitus: (2) Non-pressure chronic ulcer of other part of left foot with necrosis of bone: Acute osteomyelitis distal tuft of left second toe distal phalanx. PROCEDURE: Full thickness wound debridement Location: Left second toe Local Anesthesia: none due to neuropathy Consent: Verbal Sterile Prep: with alcohol Details: Full thickness sharp debridement of the wound was performed using sterile dermal curette. The wound was debrided of hyperkeratotic rim and devitalized and fibrotic tissue down to bone, being the deepest level of debridement. Predebridement measurements: 2 mm x 2 mm x 4 mm Postdebridement measurements: 3 mm x 3 mm x 4 mm Hemostasis: Pressure Irrigation: sterile saline Dressing: Silver alginate Estimated Blood Loss: minimal Postdebridement wound culture taken of the left second toe wound bone from the distal phalanx distal tuft was sent to microbiology for Gram stain, culture and sensitivity. (3) Puncture wound of left foot: Recommend MRI to evaluate for abscess left foot puncture wound Qualifiers: Encounter type: initial encounter Qualified Code(s): S91.332A - Puncture wound without foreign body, left foot, initial encounter (4) Chronic osteomyelitis of left foot: Per my interpretation x-ray left foot 3 views shows chronic erosive changes with sequestrum consistent with chronic osteomyelitis of the second and third metatarsal heads left foot. Plan 53-year-old diabetic male presents with diabetic foot infection, left foot. Acute osteomyelitis distal phalanx left second toe. Was debrided down to bone and bone culture was sent to microbiology, see procedure note above X-ray findings on the second and third metatarsal heads consistent with chronic osteomyelitis may be sequela of his initial infection last year from his great toe which resulted in amputation in 2022 Puncture wound left foot-recommending MRI for evaluation of puncture wound to rule out abscess or drainable fluid collection Recommend empiric IV antibiotics, may narrow once bone culture yield further information Recommending 2 to 3 days of antibiotics following debridement down to bone done bedside to gauge his response, may require some level of amputation pending his response. MRI would be helpful in possible surgical planning. Podiatry will continue to round daily. Consult Attestations Medical Necessity Statement: Acute osteomyelitis left second toe, bone cultures pending, requiring continued medical management and potentially surgical management pending his response to empiric IV antibiotics. Coding Level of Care Code Acute Code for [facility] Diagnoses Diabetic peripheral neuropathy associated with type 2 diabetes mellitus E11.42 Non-pressure chronic ulcer of other part of left foot with necrosis of bone L97.524 Puncture wound of left foot, initial encounter S91.332A Encounter type: initial encounter Chronic osteomyelitis of left foot M86.672 Comment Debridement of wound down to bone CPT code 46410
[2024-01-27 15:13] LABS: Adenovirus Not Detected (NOT DETECT); Chlamydia Pneumoniae Not Detected (NOT DETECT); Coronavirus 229E,HKU1,NL63,OC4 Not Detected (NOT DETECT); Human Metapneumovirus Not Detected (NOT DETECT); Human Rhinovirus/Enterovirus Not Detected (NOT DETECT); Influenza A Not Detected (NOT DETECT); Influenza A H1 Not Detected (NOT DETECT); Influenza A H1-2009 Not Detected (NOT DETECT); Influenza A H3 Not Detected (NOT DETECT); Influenza B Not Detected (NOT DETECT); Mycoplasma Pneumoniae Not Detected (NOT DETECT); Parainfluenza Virus Type 1 Not Detected (NOT DETECT); Parainfluenza Virus Type 2 Not Detected (NOT DETECT); Parainfluenza Virus Type 3 Not Detected (NOT DETECT); Parainfluenza Virus Type 4 Not Detected (NOT DETECT); Respiratory Syncytial Virus A Not Detected (NOT DETECT); Respiratory Syncytial Virus B Not Detected (NOT DETECT); SARS-COV-2 Not Detected (NOT DETECT)
[2024-01-27 16:55] LABS: Glucose Point of Care 193 mg/dL (70-110)
[2024-01-27] MEDS: insulin lispro 100 unit/1 mL SUBCUT ×2 (17:12→20:54)
[2024-01-27] MEDS: sodium chloride 0.9% 1,000 ML 100 ML IV (17:12)
[2024-01-27] MEDS: atorvastatin 40 mg Tablet PO (17:13)
[2024-01-27] MEDS: gabapentin 300 mg Capsule 600 MG PO (17:13)
[2024-01-27] MEDS: magnesium oxide 400 mg tablet PO (17:13)
[2024-01-27] MEDS: vancomycin 1,500 MG/300 ML PIGGYBACK 200 MG IV (17:15)
[2024-01-27] MEDS: magnesium sulfate premix 2 GM/50 ML PIGGYBACK IV (17:18)
[2024-01-27] MEDS: HYDROcodone-acetaminophen 5-325 mg Tablet 1 TAB PO (17:47)
[2024-01-27 20:01] LABS: Glucose Point of Care 197 mg/dL (70-110)
[2024-01-27] MEDS: insulin glargine 100 units/1 mL 40 UNIT SUBCUT (20:54)
[2024-01-27] MEDS: tetanus-diphtheria tox (adult) 0.5 mL SDV IM (20:55)
[2024-01-28] VITALS: BP 119/79; PULSE 96; RESP 18; TEMP 36.9; O2SAT 97
[2024-01-28] MEDS: HYDROcodone-acetaminophen 5-325 mg Tablet 1 TAB PO ×2 (02:12→11:57)
[2024-01-28 03:34] LABS: Bacillus cereus group Not Detected (NOT DETECT); Bacillus subtillis group Not Detected (NOT DETECT); Corynebacterium Not Detected (NOT DETECT); Cutibacterium acnes (P.acnes) Not Detected (NOT DETECT); Enterococcus Not Detected (NOT DETECT); Enterococcus faecalis Not Detected (NOT DETECT); Enterococcus faecium Not Detected (NOT DETECT); Lactobacillus species Not Detected (NOT DETECT); Listeria Not Detected (NOT DETECT); Listeria monocytogenes Not Detected (NOT DETECT); Micrococcus Not Detected (NOT DETECT); Pan Candida Not Detected (NOT DETECT); Pan Gram-Negative Not Detected (NOT DETECT); Staphylococcus epidermidis Not Detected (NOT DETECT); Staphylococcus lugdunensis Not Detected (NOT DETECT); Staphylococcus species Not Detected (NOT DETECT); Streptococcus agalactiae Detected (NOT DETECT); Streptococcus anginosus group Not Detected (NOT DETECT); Streptococcus pneumoniae Not Detected (NOT DETECT); Streptococcus pyogenes Not Detected (NOT DETECT); Streptococcus species Detected (NOT DETECT)
[2024-01-28 04:00] VITALS: BP 154/78; PULSE 84; RESP 20; TEMP 36.9; O2SAT 99
[2024-01-28] MEDS: sodium chloride 0.9% 1,000 ML 100 ML IV (04:54)
[2024-01-28 06:02] LABS: Erythrocyte Sedimentation Rate 73 mm/hr (0-10)
[2024-01-28 06:02] LABS: Glucose Point of Care 233 mg/dL (70-110)
[2024-01-28 06:18] LABS: Anion Gap 12.9 (5-19); Blood Urea Nitrogen 12 mg/dL (6-20); C Reactive Protein 87.4 mg/L (0.0-4.9); Calcium 8.4 mg/dL (8.5-10.5); Carbon Dioxide 24 mmol/L (22-29); Chloride 102 mmol/L (98-107); Glomerular Filtration Rate 101.1 mL/min (90-130); Glucose 228 mg/dL (65-115); Magnesium 1.9 mg/dL (1.7-2.3); Osmolality Calculated 287 mOsm/kg (285-295); Phosphorus 2.8 mg/dL (2.5-4.5); Potassium 3.9 mmol/L (3.5-5.1); Sodium 135 mmol/L (136-145)
--- NOTE | 2024-01-28 06:34 | P.PN_ITS ---
Subjective 2 Subjective: Patient seen bedside this afternoon. Went for MRI, MRI was not completed he mentioned he had some hip pain and his MRI was cut short. Denies any acute events overnight. Vitals/I&O/Wt Last Vital Signs Temp 98.5 F 01/28/24 04:00 Pulse 84 01/28/24 04:00 Resp 20 H 01/28/24 04:00 BP 154/78 01/28/24 04:00 Pulse Ox 99 01/28/24 04:00 O2 Del Method BiPAP 01/28/24 04:00 O2 Flow Rate 3 01/27/24 19:29 FiO2 28 01/27/24 20:52 01/27/24 01/27/24 01/28/24 14:59 22:59 06:59 Intake Total 50 / 50 3496 / 3546 1240 / 4786 Balance 50 / 50 3496 / 3546 1240 / 4786 Weight last 48 hrs Weight 320 lb 14.4 oz Weight 295 lb Weight 295 lb Physical Exam 2 Narrative: GENERAL: Patient is alert and oriented ?3 and in no acute distress. The following is a focused bilateral lower extremity exam. VASCULAR: Dorsalis pedis palpable bilaterally. posterior tibial arteries palpable. Less than 5-second capillary refill left second toe. Capillary refill right great toe less than 3 seconds. Decreased pedal hair growth bilaterally. NEUROLOGICAL: Protective sensation intact 0/10 sites, tested with [place] Mike monofilament to bilateral feet. DERMATOLOGICAL: Wound at the distal tuft of the left second toe probes directly to bone, the entirety of the second toe has erythema, purulent drainage expressed from the wound of the left second toe, wound measures 3 mm x 3 mm x 4 mm and probes to the distal tuft of the distal phalanx. Puncture wound left plantar midfoot probes 3 mm deep, no periwound erythema and no purulent drainage expressed from puncture wound. MUSCULOSKELETAL: History of left partial first ray amputation. Hammertoe contracture of left second toe. No pain to palpation left second toe and no pain with debridement left second toe secondary to neuropathy. Data 01/27/24 10:15 01/28/24 05:32 Micro: Microbiology 01/27/24 10:45 Blood Culture - Preliminary Blood 01/27/24 10:25 Blood Culture - Preliminary Blood SPECIMEN COLLECTED A&P Assessment and plan (1) Diabetic peripheral neuropathy associated with type 2 diabetes mellitus: (2) Non-pressure chronic ulcer of other part of left foot with necrosis of bone: (3) Puncture wound of left foot: Recommend MRI to evaluate for abscess left foot puncture wound Qualifiers: Encounter type: initial encounter Qualified Code(s): S91.332A - Puncture wound without foreign body, left foot, initial encounter (4) Chronic osteomyelitis of left foot: Per my interpretation x-ray left foot 3 views shows chronic erosive changes with sequestrum consistent with chronic osteomyelitis of the second and third metatarsal heads left foot. Plan 53-year-old diabetic male presents with diabetic foot infection, left foot. Acute osteomyelitis distal phalanx left second toe. Was debrided down to bone and bone culture was sent to microbiology X-ray findings on the second and third metatarsal heads consistent with chronic osteomyelitis may be sequela of his initial infection last year from his great toe which resulted in amputation in 2022 MRI left foot cut short, would like to have this completed Recommend continuing empiric IV antibiotics, may narrow once bone culture yield further information No purulence expressed from left second toe at today's visit there was healthy bleeding, remains cellulitic, will continue to monitor, recommend continuing IV antibiotics. Patient is at risk for potentially requiring a toe amputation or even transmetatarsal amputation given his second and third metatarsal head findings on x-ray, would be helpful to complete the MRI. Podiatry will continue to round daily. Attestations 2 Medical Necessity Statement*: Acute and chronic osteomyelitis left foot requires continued IV antibiotic therapy, possible surgical intervention pending his response Coding Level of Care Code Acute Code for [facility] Diagnoses Diabetic peripheral neuropathy associated with type 2 diabetes mellitus E11.42 Non-pressure chronic ulcer of other part of left foot with necrosis of bone L97.524 Puncture wound of left foot, initial encounter S91.332A Encounter type: initial encounter Chronic osteomyelitis of left foot M86.672
--- NOTE | 2024-01-28 07:00 | MR_ITS ---
WS: [id number] MRI LEFT FOOT WITHOUT CONTRAST. COMPARISON: Radiograph 01/27/2024 Multiplanar, multisequence imaging is performed without contrast. Extremely limited evaluation of the LEFT foot. Patient was in extreme pain and elected not to continu e with 6 examination. Only 2 coronal sequences are performed. There is extensive soft tissue edema surrounding the mid and distal foot. Partial amputation first me tatarsal and the first phalanx. The more focal acute edema is centered around the second distal metat arsal and proximal phalanx. There is circumferential edema extending into the second metatarsophalang eal joint. This is highly suspicious for an infectious or inflammatory process. There is at least adam lulitis and possible osteomyelitis. Lesser involvement of the third distal metatarsal. The abnormal signal seen on the proton density sequences involving the distal second and third metata rsals this but suspicious for osteomyelitis. MR/MR foot LT wo con* [id number] IMPRESSION: 1. Limited evaluation of the LEFT foot. Patient elected not to continue with t his exam due to pain. 2. There is soft tissue edema surrounding the midfoot and phalanges. 3. The most significant acute edema is surrounding the second distal metatarsa l into the proximal phalanx. Highly suspicious for cellulitis and osteomyelitis . 4. Prior amputation distal first metatarsal and first toe.
[2024-01-28 07:30] VITALS: BP 146/79; PULSE 85; RESP 15; TEMP 36.6; O2SAT 97
[2024-01-28] MEDS: rivaroxaban 10 mg Tablet 20 MG PO (08:11)
[2024-01-28] MEDS: gabapentin 300 mg Capsule 600 MG PO ×2 (08:11→17:06)
[2024-01-28] MEDS: venlafaxine ER (24HR) 75 mg Capsule PO (08:11)
[2024-01-28] MEDS: pantoprazole DR 40 mg Tablet PO (08:11)
[2024-01-28] MEDS: magnesium oxide 400 mg tablet PO ×2 (08:12→17:06)
[2024-01-28] MEDS: insulin lispro 100 unit/1 mL SUBCUT ×4 (08:13→20:22)
[2024-01-28] MEDS: insulin glargine 100 units/1 mL 40 UNIT SUBCUT ×2 (08:18→20:23)
[2024-01-28 08:53] LABS: Estmated Average Glucose 189; Hemoglobin A1C 8.2 % (4.0-6.0)
[2024-01-28] MEDS: acetaminophen 325 mg Tablet 650 MG PO (09:15)
--- NOTE | 2024-01-28 10:07 | PC.NURSE ---
MRI - Pt. taken via wheelchair for MRI at 0968
--- NOTE | 2024-01-28 10:52 | P.PN_ITS ---
Subjective 2 Subjective: Patient got MRI of foot today Afebrile Complaining of headache and hip pain Stating that Tylenol mostly helps with the headache Awake and alert Nonfocal exam mother at the bedside Lives with his mother, Vitals/I&O/Wt Last Vital Signs Temp 97.8 F 01/28/24 07:30 Pulse 85 01/28/24 07:30 Resp 15 01/28/24 07:30 BP 146/79 01/28/24 07:30 Pulse Ox 97 01/28/24 07:30 O2 Del Method Room Air 01/28/24 07:30 O2 Flow Rate 3 01/27/24 19:29 FiO2 28 01/27/24 20:52 01/27/24 01/28/24 01/28/24 22:59 06:59 14:59 Intake Total 3496 / 3546 1240 / 4786 354 / 354 Balance 3496 / 3546 1240 / 4786 354 / 354 Weight last 48 hrs Weight 145.558 kg Weight 133.81 kg Weight 133.81 kg Physical Exam 2 Narrative: Awake and alert Morbidly obese Left foot covered with dressing No active complaints other than headache and hip pain GCS 15 nonfocal neuroexam hemodynamically stable currently on room air Data 01/27/24 10:15 01/28/24 05:32 Micro: Microbiology 01/27/24 10:25 Blood Culture - Preliminary Blood Staphylococcus epidermidis 01/27/24 10:45 Blood Culture - Preliminary Blood Strep agalactiae - (group b) A&P Assessment and plan (1) Hypertension: (2) Dyslipidemia: (3) Chronic anticoagulation: (4) Diabetes mellitus, type II, insulin dependent: (5) Cellulitis of toe of left foot: (6) Chronic osteomyelitis of left foot: (7) Non-pressure chronic ulcer of other part of left foot with necrosis of bone: (8) Puncture wound of left foot: Qualifiers: Encounter type: initial encounter Qualified Code(s): S91.332A - Puncture wound without foreign body, left foot, initial encounter (9) Diabetic neuropathy: (10) Diabetic peripheral neuropathy associated with type 2 diabetes mellitus: (11) Obstructive sleep apnea treated with bilevel positive airway pressure (BPAP): Plan Chronic osteomyelitis Status post debridement at the bedside by Dr. Wesley Plan for continuation of antibiotics bone cultures were taken Will follow-up with the culture report MRI foot has been done, further plan will be made after reviewing MRI report Will touch base with Dr. Wesley today ESR is noted Patient this morning is afebrile, hypertensive Requiring BiPAP for sleep apnea overnight Patient will stay here until Friday Attestations 2 Medical Necessity Statement*: Continue medical management Diagnoses Hypertension I10 Dyslipidemia E78.5 Chronic anticoagulation Z79.01 Diabetes mellitus, type II, insulin dependent E11.9; Z79.4 Cellulitis of toe of left foot L03.032 Chronic osteomyelitis of left foot M86.672 Non-pressure chronic ulcer of other part of left foot with necrosis of bone L97.524 Puncture wound of left foot, initial encounter S91.332A Encounter type: initial encounter Diabetic neuropathy E11.40 Diabetic peripheral neuropathy associated with type 2 diabetes mellitus E11.42 Obstructive sleep apnea treated with bilevel positive airway pressure (BPAP) G47.33
[2024-01-28 11:17] VITALS: BP 144/80; PULSE 82; RESP 17; TEMP 36.4; O2SAT 100
[2024-01-28 11:36] LABS: Glucose Point of Care 260 mg/dL (70-110)
[2024-01-28 15:45] VITALS: BP 146/79; PULSE 83; RESP 16; TEMP 36.8; O2SAT 97
[2024-01-28] MEDS: sennosides-docusate Tablet 2 TAB PO (17:05)
[2024-01-28] MEDS: vancomycin 1,500 MG/300 ML PIGGYBACK 200 MG IV (17:05)
[2024-01-28] MEDS: atorvastatin 40 mg Tablet PO (17:06)
[2024-01-28 17:08] LABS: Glucose Point of Care 297 mg/dL (70-110)
[2024-01-28 20:00] VITALS: BP 161/64; PULSE 85; RESP 17; TEMP 36.8; O2SAT 95
[2024-01-28 20:04] LABS: Glucose Point of Care 280 mg/dL (70-110)
[2024-01-28] MEDS: cefepime 2,000 MG in sodium chloride 0.9% (plus) 50 ML 100 MG IV (20:23)
[2024-01-29] VITALS (14 sets, daily range): BP systolic 148–180; BP diastolic 72–94; PULSE 67–104; RESP 12–20; TEMP 36.3–38.8; O2SAT 94–98
[2024-01-29] MEDS: acetaminophen 325 mg Tablet 650 MG PO ×2 (00:42→19:17)
[2024-01-29 06:06] LABS: Basophils % 0.5 %; Eosinophils # 0.4 10^3/uL (0.0-0.8); Eosinophils % 5.2 %; Hematocrit 37.2 % (37-53); Lymphocytes # 1.8 10^3/uL (0.8-4.8); Lymphocytes % 21.8 %; Mean Corpuscular Hemoglobin 27.7 pg (27-33); Mean Corpuscular Volume 86.7 fl (82-101); Monocytes # 0.8 10^3/uL (0.2-0.9); Monocytes % 9.4 %; Neutrophils # 5.18 10^3/uL (1.8-7.7); Neutrophils % 62.6 %; Nucleated Red Blood Cells % 0 %; Platelet Count 198 10^3/cmm (157-399); Red Blood Count 4.29 10^6/uL (3.85-5.65); Red Cell Distribution Width 13.9 % (12.1-15.1); White Blood Count 8.27 10^3/uL (3.29-11.43)
[2024-01-29 06:10] LABS: Glucose Point of Care 189 mg/dL (70-110)
[2024-01-29 06:27] LABS: Anion Gap 15.2 (5-19); Blood Urea Nitrogen 13 mg/dL (6-20); Calcium 8.5 mg/dL (8.5-10.5); Carbon Dioxide 24 mmol/L (22-29); Chloride 99 mmol/L (98-107); Creatinine Clr Calc Pharmacy 141.9507; Glomerular Filtration Rate 88.3 mL/min (90-130); Glucose 206 mg/dL (65-115); Magnesium 1.9 mg/dL (1.7-2.3); Osmolality Calculated 284 mOsm/kg (285-295); Potassium 4.2 mmol/L (3.5-5.1); Sodium 134 mmol/L (136-145)
--- NOTE | 2024-01-29 07:51 | P.PN_ITS ---
Subjective 2 Subjective: Patient seen bedside this morning. Had a surgical conversation in regards to his left foot infection. He has a history of left great toe amputation had a rapid onset of infection and sepsis that led to hospitalization and amputation, he now has acute osteomyelitis of the left second toe not responding to IV antibiotics over the past 2 days, reviewed x-ray findings that shows signs of chronic osteomyelitis at the head of the second and third metatarsals he would like to proceed with a transmetatarsal amputation as a means of source control and not having multiple reoccurring amputations leading up to even potential higher level of amputation down the road. Vitals/I&O/Wt Last Vital Signs Temp 97.8 F 01/29/24 04:00 Pulse 83 01/29/24 04:52 Resp 20 H 01/29/24 04:00 BP 168/83 01/29/24 04:00 Pulse Ox 97 01/29/24 04:52 O2 Del Method BiPAP 01/29/24 04:00 O2 Flow Rate 3 01/27/24 19:29 FiO2 28 01/29/24 04:52 01/28/24 01/29/24 01/29/24 22:59 06:59 14:59 Intake Total 710 / 1707.333 240 / 1947.333 Output Total 800 / 800 Balance -90 / 907.333 240 / 1147.333 Weight last 48 hrs Weight 310 lb 14.4 oz Weight 320 lb 14.4 oz Weight 295 lb Weight 295 lb Physical Exam 2 Narrative: GENERAL: Patient is alert and oriented ?3 and in no acute distress. The following is a focused bilateral lower extremity exam. VASCULAR: Dorsalis pedis palpable bilaterally. posterior tibial arteries palpable. Less than 5-second capillary refill left second toe. Capillary refill right great toe less than 3 seconds. Decreased pedal hair growth bilaterally. NEUROLOGICAL: Protective sensation intact 0/10 sites, tested with [place] monofilament to bilateral feet. DERMATOLOGICAL: Wound at the distal tuft of the left second toe probes directly to bone, the entirety of the second toe has erythema, purulent drainage expressed from the wound of the left second toe, wound measures 3 mm x 3 mm x 4 mm and probes to the distal tuft of the distal phalanx. Puncture wound left plantar midfoot probes 3 mm deep, no periwound erythema and no purulent drainage expressed from puncture wound. MUSCULOSKELETAL: History of left partial first ray amputation. Hammertoe contracture of left second toe. No pain to palpation left second toe and no pain with debridement left second toe secondary to neuropathy. Data 01/29/24 05:56 01/29/24 05:56 Micro: Microbiology 01/27/24 16:20 Gram Stain - Final Toe - Left Second Wound Culture - Preliminary 01/27/24 10:25 Blood Culture - Preliminary Blood Staphylococcus epidermidis 01/27/24 10:45 Blood Culture - Preliminary Blood Strep agalactiae - (group b) A&P Assessment and plan (1) Diabetic peripheral neuropathy associated with type 2 diabetes mellitus: (2) Non-pressure chronic ulcer of other part of left foot with necrosis of bone: (3) Puncture wound of left foot: Qualifiers: Encounter type: initial encounter Qualified Code(s): S91.332A - Puncture wound without foreign body, left foot, initial encounter (4) Chronic osteomyelitis of left foot: Per my interpretation x-ray left foot 3 views shows chronic erosive changes with sequestrum consistent with chronic osteomyelitis of the second and third metatarsal heads left foot. Plan 53-year-old diabetic male presents with diabetic foot infection, left foot. Discussed clinical and radiographic findings with patient at length, he has acute osteomyelitis of the left second toe, history of partial first ray amputation of the left foot last year, he also has findings consistent with chronic osteomyelitis of the head of the second and third metatarsals. Discussed options ranging from long-term course of IV antibiotics minimum 6 weeks based off of culture taken of left second toe wound combined with wound care versus left second toe amputation versus left transmetatarsal amputation. Patient weighing risks and benefits of each option he is wishing to proceed with left transmetatarsal amputation in hopes of more definitive source control of infection, what is most concerning to the patient is that he has erosions at the head of the second and third metatarsals and he is already had 1 amputation and he for sees repetitive levels of amputation if he does not just proceed with a transmetatarsal amputation now. Recommended left transmetatarsal potation and left Achilles lengthening anticipated 6 weeks nonweightbearing then transitioning to protected weightbearing in a boot until he can be fitted with extra-depth diabetic shoes with toe filler. I reviewed at length with the patient, the risks, potential complications, benefits, alternatives, expectations, and typical outcomes associated with the surgery. The risks and potential complications were explained in detail, including but not limited to infection, wound dehiscence or soft tissue complications, bleeding and hematoma, chronic edema, neuritis or nerve damage producing numbness or chronic pain, CRPS, failure to relieve pain or worsening pain, thick / painful / unsightly scar, limited motion / stiffness, malposition, delayed union, malunion, or nonunion, fracture, reaction to implants, anesthetic complications, venous thromboembolism, and deformity recurrence. I discussed the notion of no regrets with the patient as it pertains to complications and outcomes. The patient seemed to understand the nature of the proposed care and required convalescence. They asked appropriate questions, answered to their satisfaction. They are aware no guarantees can be made as to a satisfactory outcome and they understand there may be other possible unforeseen complications or outcomes not listed here that will be treated accordingly if they arise. There were no written or implied guarantees given to the patient. They gave informed consent to proceed. N.p.o. now Scheduled for transmetatarsal amputation left lower extremity and left Achilles lengthening this morning planning on primary closure Nonweightbearing left lower extremity Podiatry will follow Attestations 2 Medical Necessity Statement*: Acute osteomyelitis require surgical intervention and continued antibiotics Coding Level of Care Code Acute Code for [facility] Diagnoses Diabetic peripheral neuropathy associated with type 2 diabetes mellitus E11.42 Non-pressure chronic ulcer of other part of left foot with necrosis of bone L97.524 Puncture wound of left foot, initial encounter S91.332A Encounter type: initial encounter Chronic osteomyelitis of left foot M86.672
[2024-01-29] MEDS: sodium chloride 0.9% 1,000 ML 30 ML IV (08:19)
--- NOTE | 2024-01-29 08:23 | PC.NURSE ---
Pt being transferred down to OR upon getting report.
--- NOTE | 2024-01-29 08:43 | P.ANESASSM_ITS ---
Pre-Anesthetic Assessment Height/Weight: Height 1.88 m Weight 141.022 kg Temp Pulse Resp BP Pulse Ox O2 Del Method O2 Flow Rate 97.3 F L 86 16 156/82 97 Room Air 3 01/29/24 08:06 01/29/24 08:23 01/29/24 08:23 01/29/24 08:23 01/29/24 08:23 01/29/24 08:23 01/27/24 19:29 FiO2 28 01/29/24 04:52 Preop Diagnosis: Osteomyelitis left foot Operation Date: 01/29/24 07:40 Proposed Procedures p Amputation Transmetatarsal Transmetatarsal Amputation(Left) - Kenny Wesley DPM Familial anesthetic complications: none Was Beta Presley taken within 24 hours: N/A Was Clonidine taken within 24 hours: N/A Last intake: Intake Last Liquid Date 01/28/24 Last Liquid Time 20:00 Last Solid Date 01/28/24 Last Solid Time 18:00 Social No alcohol and No tobacco Exam alert, oriented x 3, clear to auscultation bilaterally and regular rate & rhythm Airway Submandibular: within normal limits Cervical ROM: within normal limits Mallampati: Class II Dentition: chipped Pulmonary Sleep Apnea CV/HEM Deep Vein Thrombosis and Hypertension Metabolic Diabetes Mellitus and Morbid Obesity Goiter Neuropsych Neuropathy Anesthetic Plan ASA status: 3 Anesthesia: Choice Medications/Allergies Home Medications Medication Instructions Recorded Confirmed Last Taken Type amlodipine 5 mg tablet 5 mg PO DAILY 01/27/24 01/27/24 01/27/24 History atorvastatin 40 mg tablet 40 mg PO QPM 01/27/24 01/27/24 01/26/24 History dulaglutide 3 mg/0.5 mL 3 mg SUBCUT Q7D 01/27/24 01/27/24 01/25/24 History subcutaneous pen injector (Trulicity) gabapentin 300 mg capsule 600 mg PO BID 01/27/24 01/27/24 01/27/24 History hydrochlorothiazide 25 mg tablet 25 mg PO DAILY 01/27/24 01/27/24 01/27/24 History insulin glargine 100 unit/mL (3 75 unit SUBCUT BID 01/27/24 01/27/24 01/27/24 History mL) subcutaneous pen (Lantus Solostar U-100 Insulin) insulin lispro 100 unit/mL See Rx Instructions .Route .COMPLEX 01/27/24 01/27/24 01/27/24 History subcutaneous pen (Humalog KwikPen (U-100) Insulin) lisinopril 5 mg tablet 5 mg PO DAILY 01/27/24 01/27/24 01/27/24 History metformin 1,000 mg tablet 1,000 mg PO BID 01/27/24 01/27/24 01/27/24 History rivaroxaban 20 mg tablet (Xarelto) 20 mg PO BEDTIME 01/27/24 01/27/24 01/26/24 History venlafaxine 75 mg capsule,extended 75 mg PO DAILY 01/27/24 01/27/24 01/27/24 History release 24 hr Allergies Allergy/AdvReac Type Severity Reaction Status Date / Time No Known Allergies Allergy Verified 01/27/24 09:51 Current Medications Generic Name Dose Route Start Last Admin Trade Name Freq PRN Reason Stop Dose Admin Acetaminophen 650 mg 01/27/24 16:25 01/29/24 00:42 Acetaminophen 325 Mg Tablet PO 650 mg Q6H PRN Administration Mild/Mod Pain Or Temp >/= 101 Hydrocodone Bitart/Acetaminophen 1 tab 01/27/24 16:25 01/28/24 11:57 Hydrocodone-Acetaminophen 5-325 Mg Tablet PO 1 tab Q4H PRN Administration MODERATE TO SEVERE PAIN Atorvastatin Calcium 40 mg 01/27/24 18:00 01/28/24 17:06 Atorvastatin 40 Mg Tablet PO 40 mg QPM MEME Administration Gabapentin 600 mg 01/27/24 18:00 01/28/24 17:06 Gabapentin 300 Mg Capsule PO 600 mg BID MEME Administration Vancomycin/PEG/NADA/Lysine/Water 1,500 mg in 300 mls @ 200 mls/hr 01/27/24 16:45 01/28/24 19:44 Vancocin IV Infused Q24H MEME Infusion Cefepime HCl 2,000 mg/ Sodium 50 mls @ 100 mls/hr 01/28/24 21:00 01/28/24 21:02 Chloride IV Infused Q12H MEME Infusion Protocol Sodium Chloride 1,000 mls @ 30 mls/hr 01/29/24 08:00 01/29/24 08:19 Sodium Chloride 0.9% IV 01/30/24 07:59 30 mls/hr .Q24H MEME Administration Insulin Glargine 40 unit 01/27/24 20:00 01/28/24 20:23 Insulin Glargine 100 Units/1 Ml SUBCUT 40 unit BID@08,20 MEME Administration Insulin Human Lispro 0 unit 01/27/24 21:00 01/28/24 20:22 Insulin Lispro 100 Unit/1 Ml SUBCUT 5 unit BEDTIME MEME Administration Protocol Insulin Human Lispro 0 unit 01/27/24 18:00 01/28/24 17:07 Insulin Lispro 100 Unit/1 Ml SUBCUT 10 unit TIDWM MEME Administration Protocol Magnesium Oxide 400 mg 01/27/24 18:00 01/28/24 17:06 Magnesium Oxide 400 Mg Tablet PO 400 mg BID MEME Administration Pantoprazole Sodium 40 mg 01/28/24 09:00 01/28/24 08:[address] 40 Mg Tablet PO 40 mg DAILY MEME Administration Rivaroxaban 20 mg 01/28/24 09:00 01/28/24 08:11 Rivaroxaban 10 Mg Tablet PO 20 mg DAILY MEME Administration Senna/Docusate Sodium 2 tab 01/28/24 18:00 01/28/24 17:05 Sennosides-Docusate Tablet PO 2 tab BID MEME Administration Venlafaxine HCl 75 mg 01/28/24 09:00 01/28/24 08:11 Venlafaxine Er (24hr) 75 Mg Capsule PO 75 mg DAILY MEME Administration [facility] Anesthesia Medical History (Updated 01/27/24 @ 16:43 by Kenny Wesley DPM) Obstructive sleep apnea treated with bilevel positive airway pressure (BPAP) Settings 07/06 Diabetic neuropathy History of pulmonary embolism 2006, 1st episode, severe; has had recurrent clotting and in on lifelong anticoagulation with xarelto History of DVT (deep vein thrombosis) 2006, 1st onset, has had recurrent blood clots and is now on chronic anticoagulation with xarelto Dyslipidemia Hypertension Diabetes mellitus, type II, insulin dependent Surgical History (Updated 01/27/24 @ 20:05 by Yola Catalan MD) 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, nonhealing Hx of reduction of orbital fracture History of hip surgery bilateral hips at age 12 for what sounds like recurrent dislocation or dysplasia History of carpal tunnel release of both wrists left x 1, right x 1 History of back surgery low back x 2 Family History (Updated 01/27/24 @ 14:10 by Yola Catalan MD) Mother Colon cancer diagnosis in her early 50s Other Cancer of female organs Diabetes Heart disease Stroke Social History (Updated 01/27/24 @ 14:12 by Yola Catalan MD) Smoking and tobacco/nicotine status: never used tobacco/nicotine Alcohol intake: never Substance/Drug Use: former Former substance use details: has used THC for back pain control & after surgeries in past but none now Caregiver/support person: Yes Data Anesthesia 01/29/24 05:56 01/29/24 05:56 Short CBC 01/27/24 01/29/24 Range/Units 10:15 05:56 WBC 15.85 H 8.27 (3.29-11.43) 10^3/uL Hgb 12.90 11.90 (11.27-16.99) g/dL Hct 39.6 37.2 (37-53) % MCV 86.7 86.7 (82-101) fl Plt Count 201 198 (157-399) 10^3/cmm Neut % (Auto) 71.4 62.6 % Neut # (Auto) 11.32 H 5.18 (1.8-7.7) 10^3/uL BMP 01/27/24 01/28/24 01/29/24 10:15 05:32 05:56 Sodium 133 L 135 L 134 L Potassium 4.2 3.9 4.2 Chloride 97 L 102 99 Carbon Dioxide 25 24 24 BUN 12 12 13 Creatinine 1.0 0.8 0.9 Glucose 257 H 228 H 206 H Calcium 8.6 8.4 L 8.5 Cardiac Enzymes 01/27/24 01/27/24 Range/Units 10:15 13:42 Creatine Kinase 183 (39-308) U/L Troponin T 5th Gen ng/L 33 H (0-15) ng/L Liver Function 01/27/24 Range/Units 10:15 Total Bilirubin 0.6 (0.15-1.2) mg/dL AST 15 (0-40) U/L ALT 23 (0-41) U/L Alkaline Phosphatase 81 (40-130) U/L Albumin 3.7 (3.5-5.2) g/dL Urine 01/27/24 Range/Units 11:50 Urine Color Yellow (Yellow) Urine Appearance Clear (CLEAR) Urine pH 5 (5-7) Ur Specific [place] 1.015 (1.005-1.030) Urine Protein Trace (Negative) Urine Glucose (UA) 4+ H (Normal) Urine Ketones 1+ H (Negative) Urine Nitrate Positive H (Negative) Urine Bilirubin Neg (Negative) Ur Leukocyte Esterase Negative (Negative) Urine RBC None (0-2) /hpf Urine WBC None (0-5) /hpf COVID Results 01/27/24 13:20 Coronavirus 229E (PCR) Not detected SARS-CoV-2 (PCR) Not detected Coags 01/28/24 05:32 ESR 73 H C-Reactive Protein 87.4 H Microbiology 01/27/24 16:20 Gram Stain - Final Toe - Left Second Wound Culture - Preliminary 01/27/24 10:25 Blood Culture - Preliminary Blood Staphylococcus epidermidis 01/27/24 10:45 Blood Culture - Preliminary Blood Strep agalactiae - (group b) Cardiac Studies: 2 No Data to Display
[2024-01-29] MEDS: lidocaine 1% INJ 10 mL (per mL) 15 ML INJECTION (09:10)
[2024-01-29] MEDS: BUPivacaine 0.5% INJ 30 mL 15 ML INJECTION (09:12)
--- NOTE | 2024-01-29 09:44 | P.PN_ITS ---
Subjective 2 Subjective: No significant overnight MRI unremarkable for osteomyelitis Plan for transmetatarsal amputation Patient was made n.p.o. this morning Vitals/I&O/Wt Last Vital Signs Temp 97.3 F L 01/29/24 08:06 Pulse 86 01/29/24 08:23 Resp 16 01/29/24 08:23 BP 156/82 01/29/24 08:23 Pulse Ox 97 01/29/24 08:23 O2 Del Method Room Air 01/29/24 08:23 O2 Flow Rate 3 01/27/24 19:29 FiO2 28 01/29/24 04:52 01/28/24 01/29/24 01/29/24 22:59 06:59 14:59 Intake Total 710 / 1707.333 240 / 1947.333 Output Total 800 / 800 Balance -90 / 907.333 240 / 1147.333 Weight last 48 hrs Weight 141.022 kg Weight 145.558 kg Weight 133.81 kg Weight 133.81 kg Physical Exam 2 Narrative: Awake and alert Euvolemic Morbid obese Pleasant No active pain Hemodynamically stable Dressing of left foot in place On room air Data 01/29/24 05:56 01/29/24 05:56 Micro: Microbiology 01/27/24 16:20 Gram Stain - Final Toe - Left Second Wound Culture - Preliminary 01/27/24 10:25 Blood Culture - Preliminary Blood Staphylococcus epidermidis 01/27/24 10:45 Blood Culture - Preliminary Blood Strep agalactiae - (group b) A&P Assessment and plan (1) Hypertension: (2) Chronic anticoagulation: (3) Diabetes mellitus, type II, insulin dependent: (4) Cellulitis of toe of left foot: (5) Chronic osteomyelitis of left foot: (6) Non-pressure chronic ulcer of other part of left foot with necrosis of bone: (7) Puncture wound of left foot: Qualifiers: Encounter type: initial encounter Qualified Code(s): S91.332A - Puncture wound without foreign body, left foot, initial encounter (8) Diabetic neuropathy: (9) Obstructive sleep apnea treated with bilevel positive airway pressure (BPAP): Plan After debridement we have reviewed MRI report and decided to proceed with transmetatarsal amputation Continue antibiotics Most likely patient will will only need p.o. antibiotics after discharge will touch base with Dr. Wesley Bone cultures report is pending Patient is afebrile We are continuing vancomycin and cefepime for now for anti-MRSA and antipseudomonal coverage We are holding off on Xarelto as well N.p.o. today for the transmetatarsal amputation Continue IV fluids Patient will need BiPAP overnight for sleep apnea Attestations 2 Medical Necessity Statement*: Continue medical management Diagnoses Hypertension I10 Chronic anticoagulation Z79.01 Diabetes mellitus, type II, insulin dependent E11.9; Z79.4 Cellulitis of toe of left foot L03.032 Chronic osteomyelitis of left foot M86.672 Non-pressure chronic ulcer of other part of left foot with necrosis of bone L97.524 Puncture wound of left foot, initial encounter S91.332A Encounter type: initial encounter Diabetic neuropathy E11.40 Obstructive sleep apnea treated with bilevel positive airway pressure (BPAP) G47.33
--- NOTE | 2024-01-29 09:50 | P.BOP_ITS ---
Date of Procedure: 10/31/23 Surgeon: Kenny Wesley DPM Clinic Administrator(s): AMADA Procedure(s) performed: Left transmetatarsal amputation and Achilles lengthening Findings of the procedure(s): Acute and chronic osteomyelitis left foot. Estimated blood loss: 25 cc Specimen(s) removed: Second and third metatarsal head sent to microbiology for Gram stain, culture and sensitivity. Remaining left forefoot sent to pathology for permanent. Post-operative diagnosis: Acute osteomyelitis left second toe. Chronic osteomyelitis left second and third metatarsal heads. No complications with anesthesia or surgery. Tourniquet time 31 minutes.
--- NOTE | 2024-01-29 09:51 | PM.OP ---
Operative Report Date of procedure: January 29, 2024 Pre-op diagnosis: Diabetes with peripheral neuropathy. Chronic osteomyelitis left second and third metatarsals. Acute osteomyelitis left second toe Post-op diagnosis: Same Procedure done: Left transmetatarsal amputation. Implants: 2-0 Vicryl, 3-0 Vicryl, skin marybeth Specimens removed/disposition: Second metatarsal bone sent to microbiology for Gram stain, culture and sensitivity Pathology: Left forefoot sent to pathology for permanent Surgeon: Kenny Wesley DPM [employer] Events Fundraiser: See intraoperative documentation Estimated blood loss: 25 mL See intraoperative documentation IV fluids: See intraoperative documentation Urine output: None Complications: None Brief History: Patient is a 53-year-old insulin-dependent diabetic male who presents with chronic osteomyelitis of the left second and third metatarsals, has a history of left great toe amputation performed in [facility] 2022. He had abrupt onset with red swollen and draining left second toe. Admitted to the hospital service for diabetic foot infection with possible sepsis. Imaging indicates chronic osteomyelitis left second and third metatarsal heads and acute osteomyelitis of the left second toe. Discussed surgical debridement, bone culture and long-term antibiotics likely via PICC line and wound care and efforts for limb salvage versus amputation of the left forefoot patient wishes to proceed with amputation as a more definitive option. I reviewed at length with the patient, the risks, potential complications, benefits, alternatives, expectations, and typical outcomes associated with the surgery. The risks and potential complications were explained in detail, including but not limited to infection, wound dehiscence or soft tissue complications, bleeding and hematoma, chronic edema, neuritis or nerve damage producing numbness or chronic pain, CRPS, failure to relieve pain or worsening pain, thick / painful / unsightly scar, limited motion / stiffness, malposition, delayed union, malunion, or nonunion, fracture, reaction to implants, anesthetic complications, venous thromboembolism, and deformity recurrence. I discussed the notion of no regrets with the patient as it pertains to complications and outcomes. The patient seemed to understand the nature of the proposed care and required convalescence. They asked appropriate questions, answered to their satisfaction. They are aware no guarantees can be made as to a satisfactory outcome and they understand there may be other possible unforeseen complications or outcomes not listed here that will be treated accordingly if they arise. There were no written or implied guarantees given to the patient. They gave informed consent to proceed. Procedure: Under mild sedation patient was brought to the operating room and remained on the gurney in supine position. A timeout was performed. Anesthesia was then administered by the anesthesia service. Local anesthesia injected by myself consisting of 30 cc of one-to-one mixture 1% lidocaine and 0.5 sent Marcaine plain and a left ankle block fashion this was a 5 point nerve block. Well-padded pneumatic tourniquet applied to the left ankle. Left lower extremity was scrubbed, prepped and draped utilizing normal aseptic technique. Left ankle tourniquet was inflated to 250 mmHg. [place] incision was performed full-thickness down to bone circumferentially about the left forefoot with a #10 blade. Dorsal and plantar flaps were created. Transmetatarsal amputation was performed from medial to lateral maintaining metatarsal parabola with a sagittal saw. Head of the second and third metatarsals were of poor density and poor color and had significant erosions, cartilage surface of the second metatarsal head was shelled off and nonviable. Head of the second metatarsal sent to microbiology for Gram stain, culture and sensitivity. The incision was irrigated with copious amounts of sterile skin solution. After performing transmetatarsal potation through distal portion of left metatarsals 1, 2, 3, 4, 5 left forefoot was sent to pathology for permanent. Further irrigation was performed and extensor and flexor tendons were transected at the most proximal margin under traction. All bleeders were ligated and cauterized as necessary. Incision was irrigated skin solution and no further devitalized tissue or bone was visualized. The incision was closed in a layered fashion with deep fascia reapproximated with 2-0 Vicryl, subcutaneous tissue with 3-0 Vicryl and skin with skin marybeth. The incision was dressed with Adaptic, sterile 4 x 4's, Kerlix, Akil wrap followed by application of well-padded 2 layer compressive posterior splint. Tourniquet was deflated and a prompt hyperemic response is noted to the distal transmetatarsal amputation site of the left foot. Patient tolerated the procedure and anesthesia well and was transferred to the PACU with vital signs stable and vascular status intact. Following a period of postoperative monitoring he will be transferred back to the floor. At this point may start discharge planning, planning on nonweightbearing left lower extremity, oral antibiotics for soft tissue only at discharge for approximately 2 weeks. Will be following up in podiatry clinic.
[2024-01-29 11:27] LABS: Glucose Point of Care 230 mg/dL (70-110)
[2024-01-29] MEDS: insulin lispro 100 unit/1 mL SUBCUT ×3 (11:40→20:36)
--- NOTE | 2024-01-29 12:37 | ANE.PACU2 ---
Inpatient post-anesthesia follow up: Airway intact: Yes Vital signs: Temperature 98.3 F Pulse Rate 83 Respiratory Rate 16 Blood Pressure 172/85 Pulse Oximetry 98 Oxygen Delivery Me thod Room Air Oxygen Flow Rate 3 Fraction of Inspir ed Oxygen 28 Hydration adequate: Yes Nausea and vomiting: No Pain level: 1 Mental status: Baseline
[2024-01-29] MEDS: HYDROcodone-acetaminophen 5-325 mg Tablet 1 TAB PO ×2 (13:06→17:06)
[2024-01-29 16:48] LABS: Glucose Point of Care 264 mg/dL (70-110)
[2024-01-29] MEDS: vancomycin 1,500 MG/300 ML PIGGYBACK 200 MG IV (17:05)
[2024-01-29] MEDS: magnesium oxide 400 mg tablet PO (17:06)
[2024-01-29] MEDS: atorvastatin 40 mg Tablet PO (17:06)
[2024-01-29] MEDS: gabapentin 300 mg Capsule 600 MG PO (17:06)
[2024-01-29] MEDS: sennosides-docusate Tablet 2 TAB PO (17:06)
[2024-01-29 20:02] LABS: Glucose Point of Care 241 mg/dL (70-110)
[2024-01-29] MEDS: cefepime 2,000 MG in sodium chloride 0.9% (plus) 50 ML 100 MG IV (20:35)
[2024-01-29] MEDS: insulin glargine 100 units/1 mL 40 UNIT SUBCUT (20:36)
[2024-01-30] VITALS: BP 143/71; PULSE 104; RESP 18; TEMP 37.4; O2SAT 95
[2024-01-30] MEDS: HYDROcodone-acetaminophen 5-325 mg Tablet 1 TAB PO ×2 (01:10→08:02)
[2024-01-30 04:00] VITALS: BP 132/68; PULSE 97; RESP 18; TEMP 37.3; O2SAT 95
[2024-01-30 05:17] LABS: Glucose Point of Care 266 mg/dL (70-110)
[2024-01-30 05:47] LABS: Basophils % 0.3 %; Eosinophils # 0.3 10^3/uL (0.0-0.8); Eosinophils % 2.9 %; Hematocrit 36.2 % (37-53); Lymphocytes # 2.5 10^3/uL (0.8-4.8); Lymphocytes % 25.2 %; Mean Corpuscular HGB Conc 32.9 g/dL (30-55); Mean Corpuscular Hemoglobin 27.9 pg (27-33); Mean Platelet Volume 9.6 fL (7.4-10.4); Monocytes # 1.3 10^3/uL (0.2-0.9); Monocytes % 13.5 %; Neutrophils # 5.65 10^3/uL (1.8-7.7); Neutrophils % 57.7 %; Nucleated Red Blood Cells % 0 %; Platelet Count 227 10^3/cmm (157-399); Red Blood Count 4.26 10^6/uL (3.85-5.65); Red Cell Distribution Width 13.7 % (12.1-15.1); White Blood Count 9.79 10^3/uL (3.29-11.43)
[2024-01-30 06:14] LABS: Anion Gap 15.1 (5-19); Blood Urea Nitrogen 15 mg/dL (6-20); Calcium 8.6 mg/dL (8.5-10.5); Carbon Dioxide 23 mmol/L (22-29); Chloride 99 mmol/L (98-107); Creatinine Clr Calc Pharmacy 141.9507; Glomerular Filtration Rate 88.3 mL/min (90-130); Glucose 249 mg/dL (65-115); Osmolality Calculated 285 mOsm/kg (285-295); Potassium 4.1 mmol/L (3.5-5.1); Sodium 133 mmol/L (136-145)
[2024-01-30 07:43] VITALS: BP 158/72; PULSE 90; RESP 17; TEMP 36.8; O2SAT 95
[2024-01-30] MEDS: cefepime 2,000 MG in sodium chloride 0.9% (plus) 50 ML 100 MG IV (08:02)
[2024-01-30] MEDS: pantoprazole DR 40 mg Tablet PO (08:02)
[2024-01-30] MEDS: venlafaxine ER (24HR) 75 mg Capsule PO (08:02)
[2024-01-30] MEDS: sennosides-docusate Tablet 2 TAB PO (08:02)
[2024-01-30] MEDS: rivaroxaban 10 mg Tablet 20 MG PO (08:02)
[2024-01-30] MEDS: magnesium oxide 400 mg tablet PO (08:02)
[2024-01-30] MEDS: gabapentin 300 mg Capsule 600 MG PO (08:02)
[2024-01-30] MEDS: insulin lispro 100 unit/1 mL SUBCUT ×2 (08:03→11:47)
[2024-01-30] MEDS: insulin glargine 100 units/1 mL 40 UNIT SUBCUT (08:04)
[2024-01-30 08:31] VITALS: PULSE 90; RESP 19; O2SAT 99
--- NOTE | 2024-01-30 09:22 | PC.SOCIAL ---
IMM Update pg 2 of IMM updated and reviewed w/ patient. Copy provided and copy dated, initialed and placed in chart.
--- NOTE | 2024-01-30 10:34 | P.DS_ITS ---
Discharge Providers Date of Admission: 01/27/24 14:25 Date of Discharge: January 30, 2024 Attending Provider at Admission: Yola Catalan MD Attending Provider at Discharge: Aydin Alatorre MD Primary Care Provider: Alejandrina Omalley Diagnoses at Discharge Discharge Diagnosis (1) Hypertension: Status: Chronic (2) Chronic anticoagulation: Status: Chronic Permanent problem details: Xarelto (3) Diabetes mellitus, type II, insulin dependent: Status: Chronic (4) Cellulitis of toe of left foot: Status: Acute (5) Chronic osteomyelitis of left foot: Status: Acute (6) Non-pressure chronic ulcer of other part of left foot with necrosis of bone: Status: Acute (7) Puncture wound of left foot: Status: Acute Qualifiers: Encounter type: initial encounter Qualified Code(s): S91.332A - Puncture wound without foreign body, left foot, initial encounter (8) Diabetic neuropathy: Status: Chronic (9) Obstructive sleep apnea treated with bilevel positive airway pressure (BPAP): Status: Chronic Permanent problem details: Settings 07/06 Reason for Visit Reason for Visit: fever, vomiting, headache, back pain Hospital Course Hospital Course 52-year-old male who was admitted for management evaluation of diabetic foot ulcer management with concern for osteomyelitis of second metatarsal, Dr. Wesley was consulted. Bedside debridement sent to bone cultures, patient remained afebrile cultures remain negative, MRI was requested to further evaluate the foot which showed osteomyelitis of second metatarsal decision was made to proceed with transmetatarsal amputation, postoperatively patient did experience fever however he responded well to use of Tylenol, at the time of discharge we are giving him Augmentin and doxycycline 10-day regimen with close follow-up with Dr. Wesley. Patient does not get any pain I have counseled patient not to take any sedatives before bedtime because he has significant sleep apnea and requires BiPAP. He is wanting another/new BiPAP machine for which I will give him another sleep study referral. Physical Exam Narrative: Pleasant cooperative no morbid obese GCS 15 on his laptop Nonfocal neuroexam S1, S2 Discharge Data Studies Completed and Pending Completed Studies During Hospitalization Category Date Time Status CT abdomen pelvis wo con [id number] Stat Cat Scan 01/27/24 10:00 Completed XR chest 1V portable [id number] Stat Exams 01/27/24 10:00 Completed XR foot LT min 3V* [id number] Stat Exams 01/27/24 14:00 Completed MR foot LT wo con* [id number] Routine MRI 01/28/24 07:00 [place] [id number] Stat Ultrasound 01/27/24 14:00 Completed US venous duplex lower extremity LT [CV venous duplex Ultrasound 01/27/24 14:[place] [id number]] Stat Pending at discharge Category Date Time Status Anaerobic Culture Routine Lab 01/29/24 09:22 Received Blood Culture Stat Lab 01/27/24 10:45 Results Tissue Culture and Gram Stain Routine Lab 01/29/24 09:19 Results Vancomycin Trough Timed Lab 01/30/24 15:45 Ordered Wound Culture and Gram Stain Routine Lab 01/27/24 16:20 Results Pathology: Surgical [PTH] Routine Pth 01/29/24 09:44 Received Radiology Impressions Abdomen/Pelvis CT 01/27/24 10:00 IMPRESSION: 1. No hydronephrosis in either kidney. No obstructing renal or ureteral calculi. 2. Small esophageal hernia. 3. Normal appendix. 4. Postoperative changes lower lumbar spine described above. 5. Moderate central canal stenosis at L3-L4 and L4-L5 with disc osteophyte complexes. Chest X-Ray 01/27/24 10:00 IMPRESSION: No acute findings. Duplex Scan Lower Extremity Artery 01/27/24 14:00 IMPRESSION: Patent lower extremity arteries without hemodynamically significant stenosis, with the caveat that the left peroneal artery and left anterior tibial artery were not documented. Foot X-Ray 01/27/24 14:00 IMPRESSION: 1. High concern for osteomyelitis involving the heads of the 2nd and 3rd metatarsals. 2. Erosion and osseous destruction at the tip of the 2nd toe distal phalanx. Highly concerning for osteomyelitis. 3. Severe forefoot and 2nd toe cellulitis/edema. COMMENTS: Consider correlation with MRI. Foot MRI 01/28/24 07:00 IMPRESSION: 1. Limited evaluation of the LEFT foot. Patient elected not to continue with this exam due to pain. 2. There is soft tissue edema surrounding the midfoot and phalanges. 3. The most significant acute edema is surrounding the second distal metatarsal into the proximal phalanx. Highly suspicious for cellulitis and osteomyelitis. 4. Prior amputation distal first metatarsal and first toe. Laboratory Results WBC 9.79 10^3/uL (3.29-11.43) 01/30/24 05:17 RBC 4.26 10^6/uL (3.85-5.65) 01/30/24 05:17 Hgb 11.90 g/dL (11.27-16.99) 01/30/24 05:17 Hct 36.2 % (37-53) L 01/30/24 05:17 MCV 85.0 fl (82-101) 01/30/24 05:17 MCH 27.9 pg (27-33) 01/30/24 05:17 MCHC 32.9 g/dL (30-55) 01/30/24 05:17 RDW 13.7 % (12.1-15.1) 01/30/24 05:17 Plt Count 227 10^3/cmm (157-399) 01/30/24 05:17 MPV 9.6 fL (7.4-10.4) 01/30/24 05:17 Neut % (Auto) 57.7 % 01/30/24 05:17 Lymph % (Auto) 25.2 % 01/30/24 05:17 [place] % (Auto) 13.5 % 01/30/24 05:17 Eos % (Auto) 2.9 % 01/30/24 05:17 Baso % (Auto) 0.3 % 01/30/24 05:17 Neut # (Auto) 5.65 10^3/uL (1.8-7.7) 01/30/24 05:17 Lymph # (Auto) 2.5 10^3/uL (0.8-4.8) 01/30/24 05:17 [place] # (Auto) 1.3 10^3/uL (0.2-0.9) H 01/30/24 05:17 Eos # (Auto) 0.3 10^3/uL (0.0-0.8) 01/30/24 05:17 Baso # (Auto) 0.0 10^3/uL (0.0-0.1) 01/30/24 05:17 Nucleated RBC % (auto) 0 % 01/30/24 05:17 Nucleated RBCs # 0.0 /100WBC 01/30/24 05:17 ESR 73 mm/hr (0-10) H 01/28/24 05:32 Sodium 133 mmol/L (136-145) L 01/30/24 05:17 Potassium 4.1 mmol/L (3.5-5.1) 01/30/24 05:17 Chloride 99 mmol/L (98-107) 01/30/24 05:17 Carbon Dioxide 23 mmol/L (22-29) 01/30/24 05:17 Anion Gap 15.1 (5-19) 01/30/24 05:17 BUN 15 mg/dL (6-20) 01/30/24 05:17 Creatinine 0.9 mg/dL (0.7-1.2) 01/30/24 05:17 GFR Calculation 88.3 mL/min (90-130) L 01/30/24 05:17 Glucose 249 mg/dL (65-115) H 01/30/24 05:17 POC Glucose 266 mg/dL (70-110) H 01/30/24 04:58 Estimat Average Glucose 189 01/28/24 05:32 Hemoglobin A1c 8.2 % (4.0-6.0) H 01/28/24 05:32 Calculated Osmolality 285 mOsm/kg (285-295) 01/30/24 05:17 Lactic Acid 2.5 mmol/L (0.5-2.2) H 01/27/24 10:15 Lactic Acid (Sepsis) 1.8 mmol/L (0.5-2.2) 01/27/24 13:42 Calcium 8.6 mg/dL (8.5-10.5) 01/30/24 05:17 Phosphorus 2.8 mg/dL (2.5-4.5) 01/28/24 05:32 Magnesium 1.9 mg/dL (1.7-2.3) 01/29/24 05:56 Total Bilirubin 0.6 mg/dL (0.15-1.2) 01/27/24 10:15 AST 15 U/L (0-40) 01/27/24 10:15 ALT 23 U/L (0-41) 01/27/24 10:15 Alkaline Phosphatase 81 U/L (40-130) 01/27/24 10:15 Creatine Kinase 183 U/L (39-308) 01/27/24 10:15 Troponin T 5th Gen ng/L 33 ng/L (0-15) H 01/27/24 13:42 C-Reactive Protein 87.4 mg/L (0.0-4.9) H 01/28/24 05:32 Total Protein 7.6 g/dL (6.6-8.7) 01/27/24 10:15 Albumin 3.7 g/dL (3.5-5.2) 01/27/24 10:15 Globulin 3.9 g/dL (1.3-4.6) 01/27/24 10:15 Lipase 26 U/L (13-60) 01/27/24 10:15 Urine Color Yellow (Yellow) 01/27/24 11:50 Urine Appearance Clear (CLEAR) 01/27/24 11:50 Urine pH 5 (5-7) 01/27/24 11:50 Ur Specific [place] 1.015 (1.005-1.030) 01/27/24 11:50 Urine Protein Trace (Negative) 01/27/24 11:50 Urine Glucose (UA) 4+ (Normal) H 01/27/24 11:50 Urine Ketones 1+ (Negative) H 01/27/24 11:50 Urine Blood Neg (Negative) 01/27/24 11:50 Urine Nitrate Positive (Negative) H 01/27/24 11:50 Urine Bilirubin Neg (Negative) 01/27/24 11:50 Urine Urobilinogen 1 mg/dL (Negative) H 01/27/24 11:50 Ur Leukocyte Esterase Negative (Negative) 01/27/24 11:50 Urine RBC None /hpf (0-2) 01/27/24 11:50 Urine WBC None /hpf (0-5) 01/27/24 11:50 Ur Squamous Epith Cells Rare /hpf (0-5) 01/27/24 11:50 Amorphous Sediment Not Reportable 01/27/24 11:50 Urine Bacteria 1+ /hpf (NONE) H 01/27/24 11:50 Urine Mucus 1+ /hpf 01/27/24 11:50 Adenovirus (PCR) Not detected (NOT DETECT) 01/27/24 13:20 C. pneumoniae DNA (PCR) Not detected (NOT DETECT) 01/27/24 13:20 Coronavirus 229E (PCR) Not detected (NOT DETECT) 01/27/24 13:20 Human Metapneumovir PCR Not detected (NOT DETECT) 01/27/24 13:20 Influenza A (H1) PCR Not detected (NOT DETECT) 01/27/24 13:20 Influ A (H1/09) PCR Not detected (NOT DETECT) 01/27/24 13:20 Influenza A (H3) PCR Not detected (NOT DETECT) 01/27/24 13:20 Influenza Type A (PCR) Not detected (NOT DETECT) 01/27/24 13:20 Influenza Type B (PCR) Not detected (NOT DETECT) 01/27/24 13:20 M. pneumoniae (PCR) Not detected (NOT DETECT) 01/27/24 13:20 Parainfluenza 1 (PCR) Not detected (NOT DETECT) 01/27/24 13:20 Parainfluenza 2 (PCR) Not detected (NOT DETECT) 01/27/24 13:20 Parainfluenza 3 (PCR) Not detected (NOT DETECT) 01/27/24 13:20 Parainfluenza 4 (PCR) Not detected (NOT DETECT) 01/27/24 13:20 RSV Type A (PCR) Not detected (NOT DETECT) 01/27/24 13:20 RSV Type B (PCR) Not detected (NOT DETECT) 01/27/24 13:20 Entero/Rhino (PCR) Not detected (NOT DETECT) 01/27/24 13:20 SARS-CoV-2 (PCR) Not detected (NOT DETECT) 01/27/24 13:20 Vitals Last Vital Signs Temp 98.3 F 01/30/24 07:43 Pulse 90 01/30/24 08:31 Resp 17 01/30/24 07:43 BP 158/72 01/30/24 07:43 Pulse Ox 99 01/30/24 08:31 O2 Del Method Room Air 01/30/24 07:43 O2 Flow Rate 3 01/27/24 19:29 FiO2 28 01/30/24 08:31 Discharge Plan Discharge Patient Disposition: Home Condition: Stable Prescriptions: New oxycodone 5 mg tablet 2.5 mg PO DAILY PRN (Reason: pain) Qty: 5 0RF amoxicillin-pot clavulanate 875-125 mg tablet 1 tab PO BID Qty: 20 0RF doxycycline hyclate 100 mg tablet 100 mg PO BID 10 Days Qty: 20 0RF Continued atorvastatin 40 mg tablet 40 mg PO QPM venlafaxine 75 mg capsule,extended release 24hr 75 mg PO DAILY amlodipine 5 mg tablet 5 mg PO DAILY metformin 1,000 mg tablet 1,000 mg PO BID gabapentin 300 mg capsule 600 mg PO BID lisinopril 5 mg tablet 5 mg PO DAILY hydrochlorothiazide 25 mg tablet 25 mg PO DAILY Humalog KwikPen Insulin 100 unit/mL insulin pen See Rx Instructions .ROUTE .COMPLEX Rx Instructions: INJECT 45 UNITS IN THE AM, 30 UNITS NEEDED AT NOON, AND 45 UNITS IN THE PM. Lantus Solostar U-100 Insulin 100 unit/mL (3 mL) insulin pen 75 unit SUBCUT BID Xarelto 20 mg tablet 20 mg PO BEDTIME Trulicity 3 mg/0.5 mL pen injector 3 mg SUBCUT Q7D Rx Instructions: ON FRIDAY Discharge Orders: Discharge Order (Routine); Ordered 01/30/24 Ordered By: Aydin Alatorre Other Ambulatory Orders: Sleep Study/Titration (Routine) Timeframe: 2 Weeks Facility: [facility] - Location: [facility] Ordered By: Aydin Alatorre Referrals: Kenny Wesley DPM [Physician] - 02/04/24 10:45 am Discharge Diet: Cardiac Patient Instructions: Transmetatarsal Amputation (DC), Opioid Safety Activity Restrictions/Additional Instructions: Instructions from Dr. Wesley Please keep your surgical dressing and posterior splint clean, dry and intact until follow-up visit. Follow-up in podiatry clinic with Dr. Wesley on 02/04/2024 at 10:45 AM Non-weightbearing left lower extremity elevate left foot while resting Podiatry clinic [phone] Discharge Attestations Time Spent in Discharge Care*: greater than 30 min Quality Metrics Clinical Quality Measures [ No reported AMI, CVA or VTE this stay] Coding Level of Care Code Acute Code for Chg Fwd Diagnoses Hypertension I10 Chronic anticoagulation Z79.01 Diabetes mellitus, type II, insulin dependent E11.9; Z79.4 Cellulitis of toe of left foot L03.032 Chronic osteomyelitis of left foot M86.672 Non-pressure chronic ulcer of other part of left foot with necrosis of bone L97.524 Puncture wound of left foot, initial encounter S91.332A Encounter type: initial encounter Diabetic neuropathy E11.40 Obstructive sleep apnea treated with bilevel positive airway pressure (BPAP) G47.33
[2024-01-30 11:16] LABS: Glucose Point of Care 297 mg/dL (70-110)
[2024-01-30 11:49] VITALS: BP 155/84; PULSE 85; RESP 16; TEMP 36.6; O2SAT 95
== END 2024-01-30 12:01 | disposition home or self-care (01) | DRG 617 ==
LOC: ER 13:38 → MEDSURG 14:25
PROVIDERS: Podiatrist Foot & Ankle Surgery; Admitting Provider Hospitalist; Emergency Provider Family Medicine; PCP Physician Assistant; Visit Provider Internal Medicine
PROC: 0Y6N0ZB Detachment at Left Foot, Partial 2nd Ray, Open Approach (ICD-10-PCS; CPT 28805; principal; 2024-01-29 07:30)
PROC: 0Y6N0ZB Detachment at Left Foot, Partial 2nd Ray, Open Approach (ICD-10-PCS; CPT 28261; 2024-01-29 07:30)
DX: E11.69 Type 2 diabetes mellitus with other specified complication (principal); L03.116 Cellulitis of left lower limb; M86.172 Other acute osteomyelitis, left ankle and foot; M86.672 Other chronic osteomyelitis, left ankle and foot; Z79.4 Long term (current) use of insulin; Z86.718 Personal history of other venous thrombosis and embolism; Z79.01 Long term (current) use of anticoagulants; Z86.711 Personal history of pulmonary embolism; G47.33 Obstructive sleep apnea (adult) (pediatric); Z99.89 Dependence on other enabling machines and devices; E11.42 Type 2 diabetes mellitus with diabetic polyneuropathy; E78.5 Hyperlipidemia, unspecified; I10 Essential (primary) hypertension; Z89.412 Acquired absence of left great toe; Z87.891 Personal history of nicotine dependence; N30.90 Cystitis, unspecified without hematuria; E11.621 Type 2 diabetes mellitus with foot ulcer; L97.524 Non-pressure chronic ulcer of other part of left foot with necrosis of bone; E11.628 Type 2 diabetes mellitus with other skin complications; S91.332A Puncture wound without foreign body, left foot, initial encounter; W22.8XXA Striking against or struck by other objects, initial encounter; Y92.9 Unspecified place or not applicable
CPT/HCPCS: 36415; 36416; 71045; 73630; 73718; 74176; 80048; 80053; 81001; 82550; 82962; 83036; 83605; 83690; 83735; 84100; 84484; 85025; 85651; 86140; 87040; 87070; 87075; 87077; 87150; 87176; 87186; 87205; 87486; 87581; 87633; 88305; 88311; 90471; 90714; 93005; 93926; 93971; 94660; 96365; 96372; 99285; J0692; J0696; J1815; J2250; J2704; J3010; J3370; J3475; J3490; J7030

== ENCOUNTER → 2024-02-04 10:45 | Outpatient (BNVA) | payer MEDICARE, SELFPAY | PROVIDERS: PCP Physician Assistant; Visit Provider Podiatrist Foot & Ankle Surgery | DX: Z98.890 Other specified postprocedural states (principal); Z89.432 Acquired absence of left foot | CPT/HCPCS: 99024 ==

== ENCOUNTER → 2024-02-13 13:27 | Outpatient (BNVA) | payer MEDICARE, SELFPAY | PROVIDERS: PCP Physician Assistant; Visit Provider Podiatrist Foot & Ankle Surgery | DX: Z98.890 Other specified postprocedural states (principal); Z89.432 Acquired absence of left foot | CPT/HCPCS: 99024 ==

== ENCOUNTER 2024-02-23 14:26 | Outpatient (CLI) | payer MEDICARE, SELFPAY | END 2024-02-23 14:27 | disposition home or self-care (01) | LOC: SPT 14:27 | PROVIDERS: PCP Physician Assistant; Visit Provider Podiatrist Foot & Ankle Surgery | DX: Z47.89 Encounter for other orthopedic aftercare (principal); Z98.890 Other specified postprocedural states; Z89.432 Acquired absence of left foot | CPT/HCPCS: L4361 ==

== ENCOUNTER → 2024-03-09 12:07 | Outpatient (BNVA) | payer MEDICARE, SELFPAY | PROVIDERS: PCP Physician Assistant; Visit Provider Podiatrist Foot & Ankle Surgery | DX: Z98.890 Other specified postprocedural states (principal); Z89.432 Acquired absence of left foot; E11.42 Type 2 diabetes mellitus with diabetic polyneuropathy; Z79.4 Long term (current) use of insulin; Z79.84 Long term (current) use of oral hypoglycemic drugs | CPT/HCPCS: 99024 ==

== ENCOUNTER 2024-04-05 10:23 | Emergency (ER) | payer MEDICARE, SELFPAY ==
[2024-04-05] VITALS (7 sets, daily range): BP systolic 128–163; BP diastolic 81–92; PULSE 89–98; RESP 17–18; TEMP 36.7; O2SAT 96–98; BMI 38.1
--- NOTE | 2024-04-05 10:45 | CTR_ITS ---
PROCEDURE INFORMATION: Exam: CT Abdomen And Pelvis Without Contrast Exam date and time: 04/05/2024 10:56 AM Age: 53 years old Clinical indication: Abdominal pain; Flank; Left; Prior surgery; Surgery date: 6+ months; Surgery type: Back and hips; Additional info: Flank pain TECHNIQUE: Imaging protocol: Computed tomography of the abdomen and pelvis without contrast. Radiation optimization: All CT scans at this facility use at least one of these dose optimization techniques: automated exposure control; mA and/or kV adjustment per patient size (includes targeted exams where dose is matched to clinical indication); or iterative reconstruction. COMPARISON: CT abdomen pelvis wo con [id number] 01/27/2024 10:28 AM RADIATION DOSE METRICS: Total DLP (mGy-cm): 1302 FINDINGS: Liver: Normal. No mass. Gallbladder and biliary ducts: Normal. No calcified stones. No ductal dilation. Pancreas: Normal. No ductal dilation. Spleen: Normal. No splenomegaly. Adrenal glands: Normal. No mass. Kidneys and ureters: Normal. No hydronephrosis. Stomach and bowel: Unremarkable. No obstruction. No mucosal thickening. Appendix: No evidence of appendicitis. Intraperitoneal space: Unremarkable. No free air. No significant fluid collection. Vasculature: Unremarkable. No abdominal aortic aneurysm. Lymph nodes: Unremarkable. No enlarged lymph nodes. Urinary bladder: Unremarkable as visualized. Reproductive: Unremarkable as visualized. Bones/joints: Hall pins within each proximal femur. Degenerative changes of each hip. L5-S1 fusion. Soft tissues: Unremarkable. CT/CT kidney stone [id number] IMPRESSION: No acute subdiaphragmatic pathology.
[2024-04-05 10:48] LABS: Basophils # 0.1 10^3/uL (0.0-0.1); Eosinophils # 0.4 10^3/uL (0.0-0.8); Eosinophils % 3.7 %; Hematocrit 37.6 % (37-53); Lymphocytes # 1.2 10^3/uL (0.8-4.8); Lymphocytes % 11.9 %; Mean Corpuscular HGB Conc 29.5 g/dL (30-55); Mean Corpuscular Hemoglobin 25.9 pg (27-33); Mean Corpuscular Volume 87.6 fl (82-101); Mean Platelet Volume 9.8 fL (7.4-10.4); Monocytes # 0.7 10^3/uL (0.2-0.9); Monocytes % 7.1 %; Neutrophils # 7.86 10^3/uL (1.8-7.7); Nucleated Red Blood Cells % 0 %; Platelet Count 270 10^3/cmm (157-399); Red Blood Count 4.29 10^6/uL (3.85-5.65); Red Cell Distribution Width 17.2 % (12.1-15.1); White Blood Count 10.33 10^3/uL (3.29-11.43)
--- NOTE | 2024-04-05 11:02 | ED_ITS ---
HPI - Male Genitourinary 2 General: Chief complaint: Urogenital-Male Stated complaint: left side kidney pain, fever Time Seen by Provider: 04/05/24 10:32 Source: patient Mode of arrival: ambulatory Limitations: no limitations History of Present Illness: 53-year-old male states he been having l eft-sided flank pain over the last few days. He states it radiates into his groin he states pain is currently a 6 out of 10 he has had some nausea with the pain some burning with urination low-grade fevers at home. He states the pain has not been severe in nature. Denies any chest pain. Denies any diarrhea Associated symptoms: Reports dysuria; Deny nausea or vomiting Related Data Home Medications Medication Instructions Recorded Confirmed amlodipine 5 mg tablet 5 mg PO DAILY 01/27/24 03/09/24 atorvastatin 40 mg tablet 40 mg PO QPM 01/27/24 03/09/24 dulaglutide 3 mg/0.5 mL 3 mg SUBCUT Q7D 01/27/24 03/09/24 subcutaneous pen injector (Trulicity) gabapentin 300 mg capsule 600 mg PO BID 01/27/24 03/09/24 hydrochlorothiazide 25 mg tablet 25 mg PO DAILY 01/27/24 03/09/24 insulin glargine 100 unit/mL (3 75 unit SUBCUT BID 01/27/24 03/09/24 mL) subcutaneous pen (Lantus Solostar U-100 Insulin) insulin lispro 100 unit/mL See Rx Instructions .Route .COMPLEX 01/27/24 03/09/24 subcutaneous pen (Humalog KwikPen (U-100) Insulin) lisinopril 5 mg tablet 5 mg PO DAILY 01/27/24 03/09/24 metformin 1,000 mg tablet 1,000 mg PO BID 01/27/24 03/09/24 rivaroxaban 20 mg tablet (Xarelto) 20 mg PO BEDTIME 01/27/24 03/09/24 venlafaxine 75 mg capsule,extended 75 mg PO DAILY 01/27/24 03/09/24 release 24 hr Previous Rx's Medication Instructions Recorded amoxicillin 875 mg-potassium 1 tab PO BID #20 tabs 01/30/24 clavulanate 125 mg tablet oxycodone 5 mg tablet 2.5 mg (1/2 x 5 mg) PO DAILY PRN 01/30/24 pain #5 tabs oxycodone 5 mg tablet 2.5 mg (1/2 x 5 mg) PO DAILY PRN 02/02/24 pain 5 days #5 tabs hydrocodone 5 mg-acetaminophen 325 1 tab PO Q12H PRN pain 7 days #14 02/04/24 mg tablet tabs CAM boot to left #1 ea 02/23/24 Toe filler to left #1 ea 02/23/24 acetaminophen 300 mg-codeine 30 mg 1 tab PO Q8H PRN pain #21 tabs 02/23/24 tablet naproxen 500 mg tablet (Naprosyn) 500 mg PO BID PRN pain #20 tabs 04/05/24 ondansetron 4 mg disintegrating 4 mg PO Q6H PRN nausea and 04/05/24 tablet vomiting #14 tabs Allergies Allergy/AdvReac Type Severity Reaction Status Date / Time No Known Allergies Allergy Verified 04/05/24 10:40 Review of Systems 2 Const: Denies: fever(s), chills, body aches or change in appetite ENMT: Denies: throat pain or dental pain Card: Denies: chest pain Resp: Denies: dyspnea GI: Denies: abdominal pain, nausea, vomiting or diarrhea : Reports: flank pain and dysuria Musc: Denies: neck pain or back pain Skin/Breast: Denies: rash Neuro: Denies: headache(s) PFSH ED 2 PFSH: Medical History Chronic osteomyelitis of left foot Puncture wound of left foot Non-pressure chronic ulcer of other part of left foot with necrosis of bone Diabetic peripheral neuropathy associated with type 2 diabetes mellitus Cystitis BMI 37.0-37.9, adult Cellulitis of toe of left foot Chronic anticoagulation Xarelto Obstructive sleep apnea treated with bilevel positive airway pressure (BPAP) Settings 07/06 Diabetic neuropathy History of pulmonary embolism 2006, 1st episode, severe; has had recurrent clotting and in on lifelong anticoagulation with xarelto History of DVT (deep vein thrombosis) 2006, 1st onset, has had recurrent blood clots and is now on chronic anticoagulation with xarelto Dyslipidemia Hypertension Diabetes mellitus, type II, insulin dependent Surgical History 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, nonhealing Hx of reduction of orbital fracture History of hip surgery bilateral hips at age 12 for what sounds like recurrent dislocation or dysplasia History of carpal tunnel release of both wrists left x 1, right x 1 History of back surgery low back x 2 Family History Mother Colon cancer diagnosis in her early 50s Other Cancer of female organs Diabetes Heart disease Stroke Social History Smoking and tobacco/nicotine status: former use of tobacco/nicotine Alcohol intake: never Substance/Drug Use: former Former substance use details: has used THC for back pain control & after surgeries in past but none now Caregiver/support person: Yes Course 2 Vital Signs: Vital signs: Vital Signs Temperature 98.1 F 04/05/24 10:35 Pulse Rate 98 04/05/24 12:30 Respiratory Rate 17 04/05/24 12:00 Blood Pressure 137/92 04/05/24 12:30 Pulse Oximetry 98 04/05/24 12:30 Oxygen Delivery Me thod Room Air 04/05/24 12:30 MDM - Male Medical Decision Making Patient presents here with flank pain his CT showed no kidney stone no signs of infection his pains improved here he is stable for discharge is follow-up with PCP he is to return if worsening he understands agrees to plan. Medical Records I reviewed the patient's medical records. Lab Data I reviewed the patient's lab results. 04/05/24 10:41 04/05/24 10:41 Radiology Impressions Abdomen/Pelvis CT 04/05/24 10:45 IMPRESSION: No acute subdiaphragmatic pathology. Laboratory Results WBC 10.33 10^3/uL (3.29-11.43) 04/05/24 10:41 RBC 4.29 10^6/uL (3.85-5.65) 04/05/24 10:41 Hgb 11.10 g/dL (11.27-16.99) L 04/05/24 10:41 Hct 37.6 % (37-53) 04/05/24 10:41 MCV 87.6 fl (82-101) 04/05/24 10:41 MCH 25.9 pg (27-33) L 04/05/24 10:41 MCHC 29.5 g/dL (30-55) L 04/05/24 10:41 RDW 17.2 % (12.1-15.1) H 04/05/24 10:41 Plt Count 270 10^3/cmm (157-399) 04/05/24 10:41 MPV 9.8 fL (7.4-10.4) 04/05/24 10:41 Neut % (Auto) 76.0 % 04/05/24 10:41 Lymph % (Auto) 11.9 % 04/05/24 10:41 [place] % (Auto) 7.1 % 04/05/24 10:41 Eos % (Auto) 3.7 % 04/05/24 10:41 Baso % (Auto) 1.0 % 04/05/24 10:41 Neut # (Auto) 7.86 10^3/uL (1.8-7.7) H 04/05/24 10:41 Lymph # (Auto) 1.2 10^3/uL (0.8-4.8) 04/05/24 10:41 [place] # (Auto) 0.7 10^3/uL (0.2-0.9) 04/05/24 10:41 Eos # (Auto) 0.4 10^3/uL (0.0-0.8) 04/05/24 10:41 Baso # (Auto) 0.1 10^3/uL (0.0-0.1) 04/05/24 10:41 Nucleated RBC % (auto) 0 % 04/05/24 10:41 Nucleated RBCs # 0.0 /100WBC 04/05/24 10:41 Sodium 145 mmol/L (136-145) 04/05/24 10:41 Potassium 5.1 mmol/L (3.5-5.1) 04/05/24 10:41 Chloride 112 mmol/L (98-107) H 04/05/24 10:41 Carbon Dioxide 22 mmol/L (22-29) 04/05/24 10:41 Anion Gap 16.1 (5-19) 04/05/24 10:41 BUN 51 mg/dL (6-20) H 04/05/24 10:41 Creatinine 1.9 mg/dL (0.7-1.2) H 04/05/24 10:41 GFR Calculation 37.3 mL/min (90-130) L 04/05/24 10:41 Glucose 194 mg/dL (65-115) H 04/05/24 10:41 Calculated Osmolality 319 mOsm/kg (285-295) H 04/05/24 10:41 Calcium 8.5 mg/dL (8.5-10.5) 04/05/24 10:41 Total Bilirubin 0.2 mg/dL (0.15-1.2) 04/05/24 10:41 AST 16 U/L (0-40) 04/05/24 10:41 ALT 19 U/L (0-41) 04/05/24 10:41 Alkaline Phosphatase 132 U/L (40-130) H 04/05/24 10:41 Total Protein 6.1 g/dL (6.6-8.7) L 04/05/24 10:41 Albumin 3.1 g/dL (3.5-5.2) L 04/05/24 10:41 Globulin 3.0 g/dL (1.3-4.6) 04/05/24 10:41 Lipase 81 U/L (13-60) H 04/05/24 10:41 Urine Color Yellow (Yellow) 04/05/24 12:04 Urine Appearance Clear (CLEAR) 04/05/24 12:04 Urine pH 5 (5-7) 04/05/24 12:04 Ur Specific [place] 1.015 (1.005-1.030) 04/05/24 12:04 Urine Protein Neg (Negative) 04/05/24 12:04 Urine Glucose (UA) Norm (Normal) 04/05/24 12:04 Urine Ketones Negative (Negative) 04/05/24 12:04 Urine Blood 2+ (Negative) H 04/05/24 12:04 Urine Nitrate Negative (Negative) 04/05/24 12:04 Urine Bilirubin 1+ (Negative) H 04/05/24 12:04 Urine Urobilinogen 1 mg/dL (Negative) H 04/05/24 12:04 Ur Leukocyte Esterase Negative (Negative) 04/05/24 12:04 Urine RBC Rare /hpf (0-2) 04/05/24 12:04 Urine WBC Rare /hpf (0-5) 04/05/24 12:04 Ur Squamous Epith Cells 0-4 /hpf (0-5) H 04/05/24 12:04 Amorphous Sediment Not Reportable 04/05/24 12:04 Urine Bacteria None /hpf (NONE) 04/05/24 12:04 All radiology interpretation(s) finalized by discharge Discharge Plan Discharge Patient Disposition: Home Clinical Impression: Left flank pain Condition: Stable Prescriptions: New ondansetron 4 mg tablet,disintegrating 4 mg PO Q6H PRN (Reason: nausea and vomiting) Qty: 14 0RF naproxen [Naprosyn] 500 mg tablet 500 mg PO BID PRN (Reason: pain) Qty: 20 0RF No Action acetaminophen-codeine 300-30 mg tablet 1 tab PO Q8H PRN (Reason: pain) Qty: 21 0RF (DME) CAM boot to left See Rx Instructions .Route .MEDSUPPLY Qty: 1 0RF Rx Instructions: As directed (DME) Toe filler to left See Rx Instructions .Route .MEDSUPPLY Qty: 1 0RF Rx Instructions: As directed by [facility] hydrocodone-acetaminophen 5-325 mg tablet 1 tab PO Q12H PRN (Reason: pain) 7 Days Qty: 14 0RF oxycodone 5 mg tablet 2.5 mg PO DAILY PRN (Reason: pain) 5 Days Qty: 5 0RF atorvastatin 40 mg tablet 40 mg PO QPM venlafaxine 75 mg capsule,extended release 24hr 75 mg PO DAILY amlodipine 5 mg tablet 5 mg PO DAILY metformin 1,000 mg tablet 1,000 mg PO BID gabapentin 300 mg capsule 600 mg PO BID lisinopril 5 mg tablet 5 mg PO DAILY hydrochlorothiazide 25 mg tablet 25 mg PO DAILY Humalog KwikPen Insulin 100 unit/mL insulin pen See Rx Instructions .ROUTE .COMPLEX Rx Instructions: INJECT 45 UNITS IN THE AM, 30 UNITS NEEDED AT NOON, AND 45 UNITS IN THE PM. Lantus Solostar U-100 Insulin 100 unit/mL (3 mL) insulin pen 75 unit SUBCUT BID Xarelto 20 mg tablet 20 mg PO BEDTIME Trulicity 3 mg/0.5 mL pen injector 3 mg SUBCUT Q7D Rx Instructions: ON FRIDAY amoxicillin-pot clavulanate 875-125 mg tablet 1 tab PO BID Qty: 20 0RF oxycodone 5 mg tablet 2.5 mg PO DAILY PRN (Reason: pain) Qty: 5 0RF Discharge Orders: Discharge ED (Routine); Ordered 04/05/24 Ordered By: Sheri Curry Referrals: Alejandrina Omalley PA-C [Primary Care Provider] - 4-7 days Discharge Diet: Advance as tolerated Discharge Activity: Resume usual activity Patient Instructions: Flank Pain (ED) Coding Level of Care Code ED Binding End Stitcher for Tavo Rodrigues
[2024-04-05 11:14] LABS: Alanine Aminotransferase 19 U/L (0-41); Albumin Level 3.1 g/dL (3.5-5.2); Alkaline Phosphatase 132 U/L (40-130); Anion Gap 16.1 (5-19); Aspartate Amino Transferase 16 U/L (0-40); Blood Urea Nitrogen 51 mg/dL (6-20); Calcium 8.5 mg/dL (8.5-10.5); Carbon Dioxide 22 mmol/L (22-29); Chloride 112 mmol/L (98-107); Creatinine Clr Calc Pharmacy 65.6359; Glomerular Filtration Rate 37.3 mL/min (90-130); Glucose 194 mg/dL (65-115); Lipase 81 U/L (13-60); Osmolality Calculated 319 mOsm/kg (285-295); Potassium 5.1 mmol/L (3.5-5.1); Sodium 145 mmol/L (136-145); Total Bilirubin 0.2 mg/dL (0.15-1.2); Total Protein 6.1 g/dL (6.6-8.7)
[2024-04-05] MEDS: sodium chloride 0.9% 1,000 ML 999 ML IV (11:25)
--- NOTE | 2024-04-05 11:38 | PC.NURSE ---
this nurse has asked pt for urine sample x2. pt reports unable to go at this time but will try again iv fluids running at this time.
--- NOTE | 2024-04-05 11:52 | PC.NURSE ---
pt c/o pain rated 7, this nurse asked if pt would like pain medication, pt stated no. pt educated to let this nurse know if pt would like pain meds. pt voiced understanding.
[2024-04-05 12:12] LABS: Charge for UA Resulting for Rev
[2024-04-05 12:25] LABS: Glucose Urine UA Norm (Normal); Ketones Urine Negative (Negative); Nitrate Urine Negative (Negative); Protein Urine Neg (Negative); Specific Gravity, Urine 1.015 (1.005-1.030); Urine Appearance Clear (CLEAR); Urine Color Yellow (Yellow); pH Urine 5 (5-7)
[2024-04-05 12:26] LABS: Bilirubin Urine 1+ (Negative); Blood Urine 2+ (Negative); Leukocyte Esterase Urine Negative (Negative); UA Manual Slide Review YES; Urobilinogen Urine 1 mg/dL (Negative)
[2024-04-05 12:28] LABS: Add Urine Culture? No; RBC Urine RARE /hpf (0-2); Squamous Epithelial Cell Urine 0-4 /hpf (0-5); WBC Urine RARE /hpf (0-5)
== END 2024-04-05 13:35 | disposition home or self-care (01) ==
PROVIDERS: Emergency Provider Emergency Medicine; PCP Physician Assistant
DX: R10.9 Unspecified abdominal pain (principal); Z79.85 Long-term (current) use of injectable non-insulin antidiabetic drugs; Z79.4 Long term (current) use of insulin; Z79.84 Long term (current) use of oral hypoglycemic drugs; Z87.891 Personal history of nicotine dependence; E11.42 Type 2 diabetes mellitus with diabetic polyneuropathy; E78.5 Hyperlipidemia, unspecified; I10 Essential (primary) hypertension
CPT/HCPCS: 36415; 74176; 80053; 81003; 81015; 83690; 85025; 96360; 99284; J7030

== ENCOUNTER → 2024-04-30 11:47 | Outpatient (BNVA) | payer MEDICARE, SELFPAY | PROVIDERS: PCP Physician Assistant; Visit Provider Podiatrist Foot & Ankle Surgery | DX: L03.115 Cellulitis of right lower limb; E11.621 Type 2 diabetes mellitus with foot ulcer; L97.413 Non-pressure chronic ulcer of right heel and midfoot with necrosis of muscle; Z79.4 Long term (current) use of insulin; Z79.84 Long term (current) use of oral hypoglycemic drugs | CPT/HCPCS: 11043; 11046; 73630; 99214 ==

== ENCOUNTER 2024-04-30 12:40 | Inpatient (IN) | payer MEDICARE, SELFPAY ==
[2024-04-30 12:49] VITALS: BP 166/82; PULSE 101; RESP 16; TEMP 36.9; O2SAT 98
[2024-04-30 13:39] LABS: Basophils # 0.1 10^3/uL (0.0-0.1); Basophils % 0.4 %; Eosinophils # 0.4 10^3/uL (0.0-0.8); Eosinophils % 2.8 %; Hematocrit 40.4 % (37-53); Lymphocytes # 2.6 10^3/uL (0.8-4.8); Lymphocytes % 20.9 %; Mean Corpuscular HGB Conc 31.9 g/dL (30-55); Mean Corpuscular Hemoglobin 27.4 pg (27-33); Mean Platelet Volume 9.2 fL (7.4-10.4); Monocytes # 1.3 10^3/uL (0.2-0.9); Monocytes % 10.7 %; Neutrophils # 8.05 10^3/uL (1.8-7.7); Neutrophils % 64.9 %; Nucleated Red Blood Cells % 0 %; Platelet Count 285 10^3/cmm (157-399); Red Cell Distribution Width 14.1 % (12.1-15.1); White Blood Count 12.42 10^3/uL (3.29-11.43)
[2024-04-30 13:58] LABS: INR 1.34 (0.8-1.2)
[2024-04-30 13:59] LABS: Lactic Sepsis W/Reflex 2.7 mmol/L (0.5-2.2)
[2024-04-30 14:01] LABS: Alanine Aminotransferase 29 U/L (0-41); Albumin Level 3.8 g/dL (3.5-5.2); Alkaline Phosphatase 103 U/L (40-130); Aspartate Amino Transferase 27 U/L (0-40); Blood Urea Nitrogen 18 mg/dL (6-20); Calcium 9.3 mg/dL (8.5-10.5); Carbon Dioxide 27 mmol/L (22-29); Chloride 99 mmol/L (98-107); Creatinine Clr Calc Pharmacy 103.5582; Glomerular Filtration Rate 63.3 mL/min (90-130); Glucose 174 mg/dL (65-115); Osmolality Calculated 292 mOsm/kg (285-295); Sodium 138 mmol/L (136-145); Total Bilirubin 0.4 mg/dL (0.15-1.2); Total Protein 7.8 g/dL (6.6-8.7)
[2024-04-30 15:22] LABS: Reflex Lactate Order REFLEX LACTIC ORDERD
--- NOTE | 2024-04-30 16:34 | CTR_ITS ---
PROCEDURE INFORMATION: Exam: CT Right Lower Extremity, Foot Exam date and time: 04/30/2024 6:00 PM Age: 53 years old Clinical indication: Patient HX: Open wound to RT heel. ; Additional info: Heel wound with possible air on x-ray TECHNIQUE: Imaging protocol: CT of the right lower extremity with intravenous contrast was performed. Exam focused on the foot. Radiation optimization: All CT scans at this facility use at least one of these dose optimization techniques: automated exposure control; mA and/or kV adjustment per patient size (includes targeted exams where dose is matched to clinical indication); or iterative reconstruction. Contrast material: OMNI 350; Contrast volume: 100 ml; Contrast route: INTRAVENOUS (IV); COMPARISON: CR XR foot RT min 3V* [id number] 04/30/2024 11:56 AM RADIATION DOSE METRICS: Total DLP (mGy-cm): 499.96 FINDINGS: Bones/joints: Transverse nondisplaced impacted fracture of the neck of the 5th proximal phalanx with sclerotic margins is likely subacute or chronic nonunited. No acute fracture identified. No lytic or blastic osseous abnormality. Mild plantar and posterior calcaneal spurring . Mild degenerative spurring of the ankle joint margin and tarsal and TMT joints as well as some of the MTP and interphalangeal joints. No advanced arthropathy Soft tissues: Moderate wound in the posteromedial heel up to 1.5 cm in diameter and 1 cm in depth with deeper extension of soft tissue gas in the vicinity mild skin and subcutaneous edema around the wound. No drainable fluid collection. CT/CT foot RT w con [id number] IMPRESSION: 1. Posteromedial plantar heel wound with adjacent subcutaneous air, skin and subcutaneous edema , consistent with gas-producing cellulitis. No drainable abscess formation. 2. Subacute or chronic nonunited fracture of the 5th proximal phalanx neck.
--- NOTE | 2024-04-30 16:36 | ED_ITS ---
HPI - Wound/Laceration 2 General: Chief Complaint: Wound/Laceration Stated Complaint: Right Foot infection Time Seen by Provider: 04/30/24 16:23 History of Present Illness: Presents to the ER from Dr. Wesley's office with right heel wound with eschar covering most of the heel, cellulitis and, possible free air on x-ray, Dr. Wesley's been treating it and wants to operate on her tomorrow to debride the area surgically. Related Data Home Medications Medication Instructions Recorded Confirmed amlodipine 5 mg tablet 5 mg PO DAILY 01/27/24 04/30/24 atorvastatin 40 mg tablet 40 mg PO QPM 01/27/24 04/30/24 gabapentin 300 mg capsule 600 mg PO BID 01/27/24 04/30/24 hydrochlorothiazide 25 mg tablet 25 mg PO DAILY 01/27/24 04/30/24 insulin glargine 100 unit/mL (3 75 unit SUBCUT BID 01/27/24 04/30/24 mL) subcutaneous pen (Lantus Solostar U-100 Insulin) insulin lispro 100 unit/mL See Rx Instructions .Route .COMPLEX 01/27/24 04/30/24 subcutaneous pen (Humalog KwikPen (U-100) Insulin) lisinopril 5 mg tablet 5 mg PO DAILY 01/27/24 04/30/24 metformin 1,000 mg tablet 1,000 mg PO BID 01/27/24 04/30/24 rivaroxaban 20 mg tablet (Xarelto) 20 mg PO BEDTIME 01/27/24 04/30/24 venlafaxine 75 mg capsule,extended 75 mg PO DAILY 01/27/24 04/30/24 release 24 hr bupropion HCl 150 mg tablet,12 hr 150 mg PO BID 04/05/24 04/30/24 sustained-release dulaglutide 4.5 mg/0.5 mL 4.5 mg SUBCUT Q7D 04/05/24 04/30/24 subcutaneous pen injector (Trulicity) amoxicillin 875 mg-potassium 1 tab PO BID 04/30/24 04/30/24 clavulanate 125 mg tablet doxycycline hyclate 100 mg tablet 100 mg PO BID 04/30/24 04/30/24 Previous Rx's Medication Instructions Recorded oxycodone 5 mg tablet 2.5 mg (1/2 x 5 mg) PO DAILY PRN 02/02/24 pain 5 days #5 tabs CAM boot to left #1 ea 02/23/24 Toe filler to left #1 ea 02/23/24 naproxen 500 mg tablet (Naprosyn) 500 mg PO BID PRN pain #20 tabs 04/05/24 ondansetron 4 mg disintegrating 4 mg PO Q6H PRN nausea and 04/05/24 tablet vomiting #14 tabs Allergies Allergy/AdvReac Type Severity Reaction Status Date / Time No Known Allergies Allergy Verified 04/30/24 12:54 Review of Systems 2 General: Reports: 10 or more systems reviewed and unremarkable except in HPI and below PFSH ED 2 PFSH: Medical History Diabetes mellitus, type II, insulin dependent Chronic osteomyelitis of left foot Puncture wound of left foot Non-pressure chronic ulcer of other part of left foot with necrosis of bone Diabetic peripheral neuropathy associated with type 2 diabetes mellitus Cystitis BMI 37.0-37.9, adult Cellulitis of toe of left foot Chronic anticoagulation Xarelto Obstructive sleep apnea treated with bilevel positive airway pressure (BPAP) Settings 07/06 Diabetic neuropathy History of pulmonary embolism 2006, 1st episode, severe; has had recurrent clotting and in on lifelong anticoagulation with xarelto History of DVT (deep vein thrombosis) 2006, 1st onset, has had recurrent blood clots and is now on chronic anticoagulation with xarelto Dyslipidemia Hypertension Surgical History 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, nonhealing Hx of reduction of orbital fracture History of hip surgery bilateral hips at age 12 for what sounds like recurrent dislocation or dysplasia History of carpal tunnel release of both wrists left x 1, right x 1 History of back surgery low back x 2 Family History Mother Colon cancer diagnosis in her early 50s Other Cancer of female organs Diabetes Heart disease Stroke Social History Smoking and tobacco/nicotine status: former use of tobacco/nicotine Alcohol intake: never Substance/Drug Use: former Former substance use details: has used THC for back pain control & after surgeries in past but none now Caregiver/support person: Yes Physical Exam 2 Const: COMMON NORMALS: no acute distress, average body habitus, patient oriented x3, no limitations, healthy appearing, alert and well nourished HENMT: COMMON NORMALS: normocephalic, atraumatic, hearing grossly normal bilaterally, external ears normal, Normal external nose present and moist oral mucous membranes HEAD & SCALP: normocephalic and atraumatic NOSE: Normal external nose present EXTERNAL EAR: Yes external ears normal Neck/C-Spine: COMMON NORMALS: no JVD Chest: COMMONS NORMALS: normal inspection of the chest and normal palpation of entire chest wall Resp: COMMON NORMALS: normal respiratory effort, No retractions, No use of accessory muscles and clear to auscultation bilaterally AUSCULTATION: clear to auscultation bilaterally Cardio: COMMON NORMALS: no JVD, regular rate, regular rhythm, S1 normal heart sound present, S2 normal heart sound present, No gallops present (Cardio), No clicks present (Cardio), No murmurs present (Cardio) and No rub (Cardio) R ATE: regular rate RHYTHM: regular rhythm HEART SOUNDS: S1 normal heart sound present and S2 normal heart sound present GI: COMMON NORMALS: Normal to inspection, nondistended, normoactive bowel sounds present, Soft to palpation, non-tender, No hepatosplenomegaly present and no masses PALPATION: Yes Soft to palpation and Yes No hepatosplenomegaly present Extremity: NARRATIVE EXTREMITY EXAM: Right heel and foot and dressing, Dr. Wesley's note was reviewed with picture. Neuro: COMMON NORMALS: patient oriented x3 SENSORIUM/ORIENTATION: Yes alert Course 2 Vital Signs: Vital signs: Vital Signs Temperature 98.5 F 04/30/24 12:49 Pulse Rate 101 H 04/30/24 12:49 Respiratory Rate 16 04/30/24 12:49 Blood Pressure 166/82 04/30/24 12:49 Pulse Oximetry 98 04/30/24 12:49 Oxygen Delivery Me thod Room Air 04/30/24 12:49 MDM - Wound/Laceration Medical Decision Making Basic lab work was obtained and included CBC CMP lactic acid PT/INR, WBC 12.4, INR 1.34, lactic acid 2.7 all otherwise benign, CT scan is being obtained, Dr. Melendez was consulted who agreed to place patient inpatient for further eval and treatment. Lab Data 04/30/24 13:30 04/30/24 13:30 Laboratory Results WBC 12.42 10^3/uL (3.29-11.43) H 04/30/24 13:30 RBC 4.70 10^6/uL (3.85-5.65) 04/30/24 13:30 Hgb 12.90 g/dL (11.27-16.99) 04/30/24 13:30 Hct 40.4 % (37-53) 04/30/24 13:30 MCV 86.0 fl (82-101) 04/30/24 13:30 MCH 27.4 pg (27-33) 04/30/24 13: MCHC 31.9 g/dL (30-55) 04/30/24 13:30 RDW 14.1 % (12.1-15.1) 04/30/24 13:30 Plt Count 285 10^3/cmm (157-399) 04/30/24 13:30 MPV 9.2 fL (7.4-10.4) 04/30/24 13:30 Neut % (Auto) 64.9 % 04/30/24 13:30 Lymph % (Auto) 20.9 % 04/30/24 13:30 Bartholomew % (Auto) 10.7 % 04/30/24 13:30 Eos % (Auto) 2.8 % 04/30/24 13:30 Baso % (Auto) 0.4 % 04/30/24 13:30 Neut # (Auto) 8.05 10^3/uL (1.8-7.7) H 04/30/24 13:30 Lymph # (Auto) 2.6 10^3/uL (0.8-4.8) 04/30/24 13:30 Bartholomew # (Auto) 1.3 10^3/uL (0.2-0.9) H 04/30/24 13:30 Eos # (Auto) 0.4 10^3/uL (0.0-0.8) 04/30/24 13:30 Baso # (Auto) 0.1 10^3/uL (0.0-0.1) 04/30/24 13:30 Nucleated RBC % (auto) 0 % 04/30/24 13:30 Nucleated RBCs # 0.0 /100WBC 04/30/24 13:30 PT 17.10 SECONDS (12.1-14.9) H 04/30/24 13:30 INR 1.34 (0.8-1.2) H 04/30/24 13:30 Sodium 138 mmol/L (136-145) 04/30/24 13:30 Potassium 4.0 mmol/L (3.5-5.1) 04/30/24 13:30 Chloride 99 mmol/L (98-107) 04/30/24 13:30 Carbon Dioxide 27 mmol/L (22-29) 04/30/24 13:30 Anion Gap 16.0 (5-19) 04/30/24 13:30 BUN 18 mg/dL (6-20) 04/30/24 13:30 Creatinine 1.2 mg/dL (0.7-1.2) 04/30/24 13:30 GFR Calculation 63.3 mL/min (90-130) L 04/30/24 13:30 Glucose 174 mg/dL (65-115) H 04/30/24 13:30 Calculated Osmolality 292 mOsm/kg (285-295) 04/30/24 13:30 Lactic Acid 2.7 mmol/L (0.5-2.2) H 04/30/24 13:30 Calcium 9.3 mg/dL (8.5-10.5) 04/30/24 13:30 Total Bilirubin 0.4 mg/dL (0.15-1.2) 04/30/24 13:30 AST 27 U/L (0-40) 04/30/24 13:30 ALT 29 U/L (0-41) 04/30/24 13:30 Alkaline Phosphatase 103 U/L (40-130) 04/30/24 13:30 Total Protein 7.8 g/dL (6.6-8.7) 04/30/24 13:30 Albumin 3.8 g/dL (3.5-5.2) 04/30/24 13:30 Globulin 4.0 g/dL (1.3-4.6) 04/30/24 13:30 All radiology interpretation(s) finalized by discharge Discharge Plan Discharge Patient Disposition: Admitted As Inpatient Clinical Impression: Cellulitis of right foot, 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
[2024-04-30 16:48] LABS: Lactic Acid level (Lactate) 1.8 mmol/L (0.5-2.2)
[2024-04-30 17:00] VITALS: BP 148/83; PULSE 93; O2SAT 99
[2024-04-30 17:30] VITALS: BP 141/90; PULSE 92; O2SAT 98
[2024-04-30] MEDS: sodium chloride 0.9% 1,000 ML 999 ML IV (17:30)
--- NOTE | 2024-04-30 17:48 | P.HP_ITS ---
Providers/Chief Complaint 2 Admitting Physician: Shandra Melendez MD Primary Care Provider: Alejandrina Omalley Chief Complaint: Right Foot infection History of Present Illness Zach Crespo is a 53 year old male with past medical history of hypertension, insulin-dependent diabetes, has been pulm with Dr. Wesley for rt foot diabetic ulcer was sent from the clinic for concern related to free air on the x-ray with worsening of cellulitis patient is not endorsing nausea vomiting diarrhea chest pain or fever. He has not noticed any rigors or chills. 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 Wound started with a blister now it has gotten worse with fall order with change in color and drainage. His first dose of antibiotics was yesterday Augmentin and Doxy. He has history of transmetatarsal amputation of left foot. 01/29/2024 Review of Systems 2 Const: Denies: fever(s) Eyes: Denies: change in vision ENMT: Denies: throat pain Card: Denies: chest pain Resp: Denies: dyspnea GI: Denies: abdominal pain : Denies: flank pain Musc: Denies: neck pain Skin/Breast: Reports: rash, erythema, skin tenderness and skin swelling Medications/Allergies Home Medications Medication Instructions Recorded Confirmed Last Taken Type amlodipine 5 mg tablet 5 mg PO DAILY 01/27/24 04/30/24 04/05/24 History atorvastatin 40 mg tablet 40 mg PO QPM 01/27/24 04/30/24 04/04/24 History gabapentin 300 mg capsule 600 mg PO BID 01/27/24 04/30/24 04/05/24 History hydrochlorothiazide 25 mg tablet 25 mg PO DAILY 01/27/24 04/30/24 04/05/24 History insulin glargine 100 unit/mL (3 75 unit SUBCUT BID 01/27/24 04/30/24 04/05/24 History mL) subcutaneous pen (Lantus Solostar U-100 Insulin) insulin lispro 100 unit/mL See Rx Instructions .Route .COMPLEX 01/27/24 04/30/24 04/05/24 History subcutaneous pen (Humalog KwikPen (U-100) Insulin) lisinopril 5 mg tablet 5 mg PO DAILY 01/27/24 04/30/24 04/05/24 History metformin 1,000 mg tablet 1,000 mg PO BID 01/27/24 04/30/24 04/05/24 History rivaroxaban 20 mg tablet (Xarelto) 20 mg PO BEDTIME 01/27/24 04/30/24 04/04/24 History venlafaxine 75 mg capsule,extended 75 mg PO DAILY 01/27/24 04/30/24 04/05/24 History release 24 hr oxycodone 5 mg tablet 2.5 mg (1/2 x 5 mg) PO DAILY PRN 02/02/24 04/30/24 Unknown Rx pain 5 days #5 tabs CAM boot to left #1 ea 02/23/24 04/30/24 Unknown Rx Toe filler to left #1 ea 02/23/24 04/30/24 Unknown Rx bupropion HCl 150 mg tablet,12 hr 150 mg PO BID 04/05/24 04/30/24 04/05/24 History sustained-release dulaglutide 4.5 mg/0.5 mL 4.5 mg SUBCUT Q7D 04/05/24 04/30/24 04/04/24 History subcutaneous pen injector (Trulicity) naproxen 500 mg tablet (Naprosyn) 500 mg PO BID PRN pain #20 tabs 04/05/24 04/30/24 Unknown Rx ondansetron 4 mg disintegrating 4 mg PO Q6H PRN nausea and 04/05/24 04/30/24 Unknown Rx tablet vomiting #14 tabs amoxicillin 875 mg-potassium 1 tab PO BID 04/30/24 04/30/24 Unknown History clavulanate 125 mg tablet doxycycline hyclate 100 mg tablet 100 mg PO BID 04/30/24 04/30/24 Unknown History Allergies Allergy/AdvReac Type Severity Reaction Status Date / Time No Known Allergies Allergy Verified 04/30/24 12:54 PFSH Acute 2 PFSH: Medical History Diabetes mellitus, type II, insulin dependent Chronic osteomyelitis of left foot Puncture wound of left foot Non-pressure chronic ulcer of other part of left foot with necrosis of bone Diabetic peripheral neuropathy associated with type 2 diabetes mellitus Cystitis BMI 37.0-37.9, adult Cellulitis of toe of left foot Chronic anticoagulation Xarelto Obstructive sleep apnea treated with bilevel positive airway pressure (BPAP) Settings 07/06 Diabetic neuropathy History of pulmonary embolism 2007, 1st episode, severe; has had recurrent clotting and in on lifelong anticoagulation with xarelto History of DVT (deep vein thrombosis) 2007, 1st onset, has had recurrent blood clots and is now on chronic anticoagulation with xarelto Dyslipidemia Hypertension Surgical History 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, nonhealing Hx of reduction of orbital fracture History of hip surgery bilateral hips at age 12 for what sounds like recurrent dislocation or dysplasia History of carpal tunnel release of both wrists left x 1, right x 1 History of back surgery low back x 2 Family History Mother Colon cancer diagnosis in her early 50s Other Cancer of female organs Diabetes Heart disease Stroke Social History Smoking and tobacco/nicotine status: former use of tobacco/nicotine Alcohol intake: never Substance/Drug Use: former Former substance use details: has used THC for back pain control & after surgeries in past but none now Caregiver/support person: Yes Vitals/I&O/Wt Last Vital Signs Temp 98.5 F 04/30/24 12:49 Pulse 92 04/30/24 17:30 Resp 16 04/30/24 12:49 BP 141/90 04/30/24 17:30 Pulse Ox 98 04/30/24 17:30 O2 Del Method Room Air 04/30/24 12:49 Weight last 48 hrs Weight 133.81 kg Physical Exam 2 Narrative: Black eschar right heel Necrosis of muscle Areas demarcated posterior to the the ankle Malodorous No sign of vascular ischemia Awake and alert Mobility Abdomen soft S1, S2 Hemodynamically stable Data 04/30/24 13:30 04/30/24 13:30 Micro: Microbiology 04/30/24 13:26 Blood Culture - Preliminary Blood SPECIMEN COLLECTED 04/30/24 13:30 Blood Culture - Preliminary Blood SPECIMEN COLLECTED A&P Assessment and plan (1) Diabetes mellitus, type II, insulin dependent: (2) Cellulitis of right foot: (3) 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 at midnight Going for the debridement in the morning Dr. 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
[2024-04-30 17:51] VITALS: BP 141/90; PULSE 92; O2SAT 98
[2024-04-30] MEDS: iohexol 350 mg/mL 500 mL Btl (per mL) IV (18:05)
[2024-04-30 19:53] VITALS: BP 138/78; RESP 19; TEMP 36.8; O2SAT 96
[2024-04-30 20:52] LABS: Estmated Average Glucose 183
[2024-04-30 21:23] LABS: Glucose Point of Care 204 mg/dL (70-110)
[2024-04-30] MEDS: metoprolol tartrate 25 mg Tablet PO (21:24)
[2024-04-30] MEDS: sodium chloride 0.9% 1,000 ML 75 ML IV (21:24)
[2024-04-30] MEDS: vancomycin 2,000 MG/400 ML PIGGYBACK 200 MG IV (21:25)
[2024-04-30] MEDS: piperacillin-tazobactam 3.375 GM in sodium chloride 0.9% (plus) 50 ML IV (21:25)
[2024-04-30] MEDS: insulin glargine 100 units/1 mL 50 UNIT SUBCUT (22:44)
[2024-04-30] MEDS: clindamycin 900 MG/50 ML PREMIX 100 MG IV (23:51)
[2024-05-01] VITALS (9 sets, daily range): BP systolic 98–142; BP diastolic 52–80; PULSE 80–91; RESP 16–20; TEMP 36.5–37.1; O2SAT 95–98
[2024-05-01] MEDS: piperacillin-tazobactam 3.375 GM in sodium chloride 0.9% (plus) 50 ML IV ×3 (01:05→21:40)
[2024-05-01 04:47] LABS: Basophils % 0.4 %; Eosinophils # 0.4 10^3/uL (0.0-0.8); Eosinophils % 3.9 %; Hematocrit 36.9 % (37-53); Lymphocytes # 2.5 10^3/uL (0.8-4.8); Lymphocytes % 25.7 %; Mean Corpuscular HGB Conc 31.4 g/dL (30-55); Mean Corpuscular Hemoglobin 26.7 pg (27-33); Mean Platelet Volume 9.7 fL (7.4-10.4); Monocytes # 1.2 10^3/uL (0.2-0.9); Monocytes % 12.1 %; Neutrophils # 5.69 10^3/uL (1.8-7.7); Neutrophils % 57.6 %; Nucleated Red Blood Cells % 0 %; Platelet Count 256 10^3/cmm (157-399); Red Blood Count 4.34 10^6/uL (3.85-5.65); Red Cell Distribution Width 13.9 % (12.1-15.1); White Blood Count 9.89 10^3/uL (3.29-11.43)
[2024-05-01 05:14] LABS: Blood Urea Nitrogen 15 mg/dL (6-20); C Reactive Protein 20.2 mg/L (0.0-4.9); Calcium 8.5 mg/dL (8.5-10.5); Carbon Dioxide 29 mmol/L (22-29); Chloride 100 mmol/L (98-107); Creatinine Clr Calc Pharmacy 125.5193; Glomerular Filtration Rate 78.2 mL/min (90-130); Glucose 181 mg/dL (65-115); Magnesium 1.7 mg/dL (1.7-2.3); Osmolality Calculated 293 mOsm/kg (285-295); Sodium 139 mmol/L (136-145)
[2024-05-01 06:28] LABS: Glucose Point of Care 151 mg/dL (70-110)
--- NOTE | 2024-05-01 06:45 | PM.CONSULT ---
Providers/Reason For Consult Consulting Physician/Specialty*: Kenny Wesley D.P.M. Reason for Consult*: Diabetic foot infection Attending Physician: Shandra Melendez MD Primary Care Provider: Alejandrina Omalley History of Present Illness History of Present Illness Zach Crespo is a 53 year old male presents with concerns regarding a new wound to the right heel. Wound has been present for about 3 weeks. He reports that wound began with a blister from shoe gear. Wound to right heel has an eschar center with foul odor present. He is currently taking Augmentin 875mg BID and Doxycycline 100mg BID. He states that oral antibiotics were started yesterday. Patient has a hx of a transmetatarsal amputation of the left foot completed on 01/29/24. Patient denies any subjective nausea, vomiting, fever, chills, shortness of breath or chest pain. Review of Systems General: Reports: 10 or more systems reviewed and unremarkable except in HPI and below Const: Denies: fever(s) or chills Eyes: Denies: change in vision Card: Denies: chest pain or palpitations Resp: Denies: dyspnea or productive cough GI: Denies: abdominal pain, nausea or vomiting : Denies: flank pain Musc: Reports: extremity swelling, joint stiffness and deformity Skin/Breast: Reports: erythema, sores, changes in skin color, dry skin, nail changes and change in hair Neuro: Reports: numbness in extremities, sensory changes and difficulty walking Psych: Denies: suicidal ideation Endo: Denies: change in body appearance Carlos Eduardo/Lymph: Denies: tender lymph nodes Medications/Allergies Home Medications Medication Instructions Recorded Confirmed Last Taken Type atorvastatin 40 mg tablet 40 mg PO QPM 01/27/24 04/30/24 04/29/24 History gabapentin 300 mg capsule 600 mg PO BID 01/27/24 04/30/24 04/30/24 History hydrochlorothiazide 25 mg tablet 25 mg PO DAILY 01/27/24 04/30/24 04/30/24 History insulin glargine 100 unit/mL (3 75 unit SUBCUT BID 01/27/24 04/30/24 04/30/24 History mL) subcutaneous pen (Lantus Solostar U-100 Insulin) insulin lispro 100 unit/mL See Rx Instructions .Route .COMPLEX 01/27/24 04/30/24 04/30/24 History subcutaneous pen (Humalog KwikPen (U-100) Insulin) metformin 1,000 mg tablet 1,000 mg PO BID 01/27/24 04/30/24 04/30/24 History rivaroxaban 20 mg tablet (Xarelto) 20 mg PO BEDTIME 01/27/24 04/30/24 04/30/24 History venlafaxine 75 mg capsule,extended 75 mg PO DAILY 01/27/24 04/30/24 04/30/24 History release 24 hr bupropion HCl 150 mg tablet,12 hr 150 mg PO BID 04/05/24 04/30/24 04/30/24 History sustained-release dulaglutide 4.5 mg/0.5 mL 4.5 mg SUBCUT Q7D 04/05/24 04/30/24 04/25/24 History subcutaneous pen injector (Trulicity) amoxicillin 875 mg-potassium 1 tab PO BID 04/30/24 04/30/24 04/30/24 History clavulanate 125 mg tablet doxycycline hyclate 100 mg tablet 100 mg PO BID 04/30/24 04/30/24 04/30/24 History Allergies Allergy/AdvReac Type Severity Reaction Status Date / Time No Known Allergies Allergy Verified 04/30/24 12:54 Current Medications Generic Name Dose Route Start Last Admin Trade Name Fadyq PRN Reason Stop Dose Admin Sodium Chloride 1,000 mls @ 75 mls/hr 05/01/24 06:30 04/30/24 21:24 Sodium Chloride 0.9% IV 75 mls/hr .[id number] [facility] Administration Clindamycin HCl/Dextrose 900 mg in 50 mls @ 100 mls/hr 04/30/24 20:00 05/01/24 00:35 Cleocin IV 05/02/24 19:59 Infused Q8H [facility] Infusion Protocol Piperacillin Sod/Tazobactam 50 mls @ 12.5 mls/hr 05/01/24 02:00 05/01/24 04:43 Sod 3.375 gm/ Sodium Chloride IV Infused Q8H [facility] Infusion Vancomycin HCl 2,000 mg in 400 mls @ 200 mls/hr 04/30/24 21:00 04/30/24 23:26 Vancocin IV Infused BID@0900,2100 [facility] Infusion Insulin Glargine 50 unit 04/30/24 21:00 04/30/24 22:44 Insulin Glargine 100 Units/1 Ml SUBCUT 50 unit 899,2099 [facility] Administration Insulin Human Lispro 0 unit 04/30/24 21:00 04/30/24 21:34 Insulin Lispro 100 Unit/1 Ml SUBCUT Not Given WM&BEDTIME [facility] Protocol Metoprolol Tartrate 25 mg 04/30/24 21:00 04/30/24 21:24 Metoprolol Tartrate 25 Mg Tablet PO 25 mg BID@899,2099 [facility] Administration PFSH Acute PFSH: Medical History Diabetes mellitus, type II, insulin dependent Chronic osteomyelitis of left foot Puncture wound of left foot Non-pressure chronic ulcer of other part of left foot with necrosis of bone Diabetic peripheral neuropathy associated with type 2 diabetes mellitus Cystitis BMI 37.0-37.9, adult Cellulitis of toe of left foot Chronic anticoagulation Xarelto Obstructive sleep apnea treated with bilevel positive airway pressure (BPAP) Settings 07/06 Diabetic neuropathy History of pulmonary embolism 2006, 1st episode, severe; has had recurrent clotting and in on lifelong anticoagulation with xarelto History of DVT (deep vein thrombosis) 2006, 1st onset, has had recurrent blood clots and is now on chronic anticoagulation with xarelto Dyslipidemia Hypertension Surgical History 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, nonhealing Hx of reduction of orbital fracture History of hip surgery bilateral hips at age 12 for what sounds like recurrent dislocation or dysplasia History of carpal tunnel release of both wrists left x 1, right x 1 History of back surgery low back x 2 Family History Mother Colon cancer diagnosis in her early 50s Other Cancer of female organs Diabetes Heart disease Stroke Social History Smoking and tobacco/nicotine status: former use of tobacco/nicotine Alcohol intake: never Substance/Drug Use: former Former substance use details: has used THC for back pain control & after surgeries in past but none now Caregiver/support person: Yes Vitals/I&O/Wt Last Vital Signs Temp 98.1 F 05/01/24 04:00 Pulse 80 05/01/24 04:00 Resp 18 05/01/24 04:00 BP 142/80 05/01/24 04:00 Pulse Ox 97 05/01/24 04:00 O2 Del Method Room Air 05/01/24 04:00 04/30/24 04/30/24 05/01/24 14:59 22:59 06:59 Intake Total 1770 / 1770 500 / 2270 Output Total 800 / 800 650 / 1450 Balance 970 / 970 -150 / 820 Weight last 48 hrs Weight 300 lb 11.2 oz Weight 295 lb Weight 295 lb Physical Exam Narrative: GENERAL: Patient is alert and oriented ?3 and in no acute distress. The following is a focused left lower extremity exam. VASCULAR: Dorsalis pedis and posterior tibial arteries palpable +2. Capillary refill time less than 3 seconds to the distal hallux bilaterally. Calf is supple and nontender proximally and distally. Mild edema at the operative site consistent with postoperative course. NEUROLOGICAL: Protective sensation diminished to lower extremities. DERMATOLOGICAL: Wound to left heel with foul malodor and purulence and periwound erythema streaking to the medial ankle, eschar center and fibrogranular margin and probes greater than 1 cm deep at 12:00 location of the wound measures 6.6 cm x 5.3 cm x 1 cm. MUSCULOSKELETAL: Status post left transmetatarsal amputation. CARDIOVASCULAR: S1, S2, normal rate, normal rhythm. Dorsalis pedis and posterior tibial arteries palpable. LUNGS: Clear to auscltation, no use of acessory muscles, no crackles or wheezes. Data 05/01/24 03:36 05/01/24 03:36 Micro: Microbiology 04/30/24 13:26 Blood Culture - Preliminary Blood SPECIMEN COLLECTED 04/30/24 13:30 Blood Culture - Preliminary Blood SPECIMEN COLLECTED A&P Assessment and plan (1) Cellulitis of right foot: (2) Diabetes mellitus, type II, insulin dependent: (3) Diabetic wet gangrene of the foot: Plan 53 year old diabetic male patient presenting to the clinic with concerns regarding a new wound to the right heel. Wound has been present for about 3 weeks. He reports that wound began with a blister from shoe gear. Wound to right heel has an eschar center with foul odor present. He is currently taking Augmentin 875mg BID and Doxycycline 100mg BID. He states that oral antibiotics were started yesterday. Patient has a hx of a transmetatarsal amputation of the left foot completed on 01/29/24. X-ray suspicious for soft tissue emphysema adjacent to right calcaneus, x-ray taken 04/30/2024 CT scan 04/30/2024 shows posterior medial plantar heel wound with adjacent subcutaneous air consistent with gas producing cellulitis without abscess. Dressing Betadine wet-to-dry Bedside debridement performed in clinic prior to emergency department admission and hospitalization, postdebridement aerobic and anaerobic cultures taken and sent to microbiology for Gram stain, culture and sensitivity N.p.o. Nonweightbearing right lower extremity Scheduled for surgical debridement right lower extremity 05/01/2024 8:00 AM Coding Level of Care Code Acute Code for [facility] Fwd Diagnoses Cellulitis of right foot L03.115 Diabetes mellitus, type II, insulin dependent E11.9; Z79.4 Diabetic wet gangrene of the foot E11.52
--- NOTE | 2024-05-01 06:59 | W.PM.OPSUD ---
Surgery/Procedure H&P Update DATE OF PROCEDURE: May 01, 2024 DATE H&P PERFORMED: 04/30/24 H&P UPDATE INFORMATION: I have reviewed H&P completed within last 30 days, I have examined patient prior to procedure, No changes to prior documentation and H&P is in [facility] EMR on date indicated PLANNED PROCEDURE: Operation Date: 05/01/24 08:10 Proposed Procedures p Incision And Drainage Right Foot(Right) - Kenny Wesley DPM
--- NOTE | 2024-05-01 07:04 | ANES.PREANE2 ---
Pre-Anesthetic Assessment Height/Weight: Height 6 ft 2 in Weight 300 lb 11.2 oz Temp Pulse Resp BP Pulse Ox O2 Del Method 98.3 F 80 17 131/71 97 Room Air 05/01/24 06:56 05/01/24 06:56 05/01/24 06:56 05/01/24 06:56 05/01/24 06:56 05/01/24 06:56 Operation Date: 05/01/24 08:10 Proposed Procedures p Incision And Drainage Right Foot(Right) - Kenny Wesley DPM Familial anesthetic complications: none Last intake: Intake Last Liquid Date 04/30/24 Last Liquid Time 23:00 Last Solid Date 04/30/24 Last Solid Time 23:00 Social No alcohol and No tobacco Exam alert, oriented x 3, clear to auscultation bilaterally and regular rate & rhythm Airway Submandibular: within normal limits Cervical ROM: within normal limits Mallampati: Class II Dentition: chipped Anesthetic Plan ASA status: 3 Anesthesia: MAC Other: No prior issues with anesthesia in the past N.p.o. since 11pm Patient had a left partial amp of the foot in January under MAC anesthesia without complications On Trulicity, last taken 04/25 IDDM, blood sugar this a.m. 181 Xarelto taken 04/30, surgeon aware Labs 05/01 reviewed and acceptable to proceed EKG showing first-degree AV block Plan for MAC anesthesia Medications/Allergies Home Medications Medication Instructions Recorded Confirmed Last Taken Type atorvastatin 40 mg tablet 40 mg PO QPM 01/27/24 04/30/24 04/29/24 History gabapentin 300 mg capsule 600 mg PO BID 01/27/24 04/30/24 04/30/24 History hydrochlorothiazide 25 mg tablet 25 mg PO DAILY 01/27/24 04/30/24 04/30/24 History insulin glargine 100 unit/mL (3 75 unit SUBCUT BID 01/27/24 04/30/24 04/30/24 History mL) subcutaneous pen (Lantus Solostar U-100 Insulin) insulin lispro 100 unit/mL See Rx Instructions .Route .COMPLEX 01/27/24 04/30/24 04/30/24 History subcutaneous pen (Humalog KwikPen (U-100) Insulin) metformin 1,000 mg tablet 1,000 mg PO BID 01/27/24 04/30/24 04/30/24 History rivaroxaban 20 mg tablet (Xarelto) 20 mg PO BEDTIME 01/27/24 04/30/24 04/30/24 History venlafaxine 75 mg capsule,extended 75 mg PO DAILY 01/27/24 04/30/24 04/30/24 History release 24 hr bupropion HCl 150 mg tablet,12 hr 150 mg PO BID 04/05/24 04/30/24 04/30/24 History sustained-release dulaglutide 4.5 mg/0.5 mL 4.5 mg SUBCUT Q7D 04/05/24 04/30/24 04/25/24 History subcutaneous pen injector (Trulicity) amoxicillin 875 mg-potassium 1 tab PO BID 04/30/24 04/30/24 04/30/24 History clavulanate 125 mg tablet doxycycline hyclate 100 mg tablet 100 mg PO BID 04/30/24 04/30/24 04/30/24 History Allergies Allergy/AdvReac Type Severity Reaction Status Date / Time No Known Allergies Allergy Verified 04/30/24 12:54 Current Medications Generic Name Dose Route Start Last Admin Trade Name Freq PRN Reason Stop Dose Admin Sodium Chloride 1,000 mls @ 75 mls/hr 05/01/24 06:30 04/30/24 21:24 Sodium Chloride 0.9% IV 75 mls/hr .[id number] [facility] Administration Clindamycin HCl/Dextrose 900 mg in 50 mls @ 100 mls/hr 04/30/24 20:00 05/01/24 00:35 Cleocin IV 05/02/24 19:59 Infused Q8H [facility] Infusion Protocol Piperacillin Sod/Tazobactam 50 mls @ 12.5 mls/hr 05/01/24 02:00 05/01/24 04:43 Sod 3.375 gm/ Sodium Chloride IV Infused Q8H [facility] Infusion Vancomycin HCl 2,000 mg in 400 mls @ 200 mls/hr 04/30/24 21:00 04/30/24 23:26 Vancocin IV Infused BID@0900,2100 [facility] Infusion Insulin Glargine 50 unit 04/30/24 21:00 04/30/24 22:44 Insulin Glargine 100 Units/1 Ml SUBCUT 50 unit 899,2100 [facility] Administration Insulin Human Lispro 0 unit 04/30/24 21:00 04/30/24 21:34 Insulin Lispro 100 Unit/1 Ml SUBCUT Not Given WM&BEDTIME [facility] Protocol Metoprolol Tartrate 25 mg 04/30/24 21:00 04/30/24 21:24 Metoprolol Tartrate 25 Mg Tablet PO 25 mg BID@0900,2100 [facility] Administration [facility] Anesthesia Medical History Diabetes mellitus, type II, insulin dependent Chronic osteomyelitis of left foot Puncture wound of left foot Non-pressure chronic ulcer of other part of left foot with necrosis of bone Diabetic peripheral neuropathy associated with type 2 diabetes mellitus Cystitis BMI 37.0-37.9, adult Cellulitis of toe of left foot Chronic anticoagulation Xarelto Obstructive sleep apnea treated with bilevel positive airway pressure (BPAP) Settings 07/06 Diabetic neuropathy History of pulmonary embolism 2006, 1st episode, severe; has had recurrent clotting and in on lifelong anticoagulation with xarelto History of DVT (deep vein thrombosis) 2006, 1st onset, has had recurrent blood clots and is now on chronic anticoagulation with xarelto Dyslipidemia Hypertension Surgical History 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, nonhealing Hx of reduction of orbital fracture History of hip surgery bilateral hips at age 12 for what sounds like recurrent dislocation or dysplasia History of carpal tunnel release of both wrists left x 1, right x 1 History of back surgery low back x 2 Family History Mother Colon cancer diagnosis in her early 50s Other Cancer of female organs Diabetes Heart disease Stroke Social History Smoking and tobacco/nicotine status: former use of tobacco/nicotine Alcohol intake: never Substance/Drug Use: former Former substance use details: has used THC for back pain control & after surgeries in past but none now Caregiver/support person: Yes Data Anesthesia 05/01/24 03:36 05/01/24 03:36 Short CBC 04/30/24 05/01/24 Range/Units 13:30 03:36 WBC 12.42 H 9.89 (3.29-11.43) 10^3/uL Hgb 12.90 11.60 (11.27-16.99) g/dL Hct 40.4 36.9 L (37-53) % MCV 86.0 85.0 (82-101) fl Plt Count 285 256 (157-399) 10^3/cmm Neut % (Auto) 64.9 57.6 % Neut # (Auto) 8.05 H 5.69 (1.8-7.7) 10^3/uL BMP 04/30/24 05/01/24 13:30 03:36 Sodium 138 139 Potassium 4.0 4.0 Chloride 99 100 Carbon Dioxide 27 29 BUN 18 15 Creatinine 1.2 1.0 Glucose 174 H 181 H Calcium 9.3 8.5 Liver Function 04/30/24 Range/Units 13:30 Total Bilirubin 0.4 (0.15-1.2) mg/dL AST 27 (0-40) U/L ALT 29 (0-41) U/L Alkaline Phosphatase 103 (40-130) U/L Albumin 3.8 (3.5-5.2) g/dL Coags 04/30/24 05/01/24 13:30 03:36 PT 17.10 H INR 1.34 H C-Reactive Protein 20.2 H Microbiology 04/30/24 13:26 Blood Culture - Preliminary Blood SPECIMEN COLLECTED 04/30/24 13:30 Blood Culture - Preliminary Blood SPECIMEN COLLECTED Cardiac Studies: No Data to Display
[2024-05-01] MEDS: BUPivacaine 0.5% INJ 30 mL 20 ML XX (07:46)
[2024-05-01] MEDS: lidocaine 1% 10 ML INJ 20 ML XX (07:46)
--- NOTE | 2024-05-01 08:21 | ANE.PACU2 ---
Inpatient post-anesthesia follow up: Airway intact: Yes Vital signs: Temperature 98.3 F Pulse Rate 82 Respiratory Rate 18 Blood Pressure 98/63 Pulse Oximetry 97 Oxygen Delivery Me thod Room Air Oxygen Flow Rate 6 Fraction of Inspir ed Oxygen Hydration adequate: Yes Nausea and vomiting: No Pain level: 1 Mental status: Baseline
--- NOTE | 2024-05-01 08:28 | PM.OP ---
Operative Report Date of procedure: May 01, 2024 Pre-op diagnosis: Cellulitis of right foot L03.115 Diabetes mellitus, type II, insulin dependent E11.9; Z79.4 Diabetic wet gangrene of the foot E11.52 Post-op diagnosis: Same Procedure done: Incision and debridement of right foot down to and including epidermis, dermis, subcutaneous tissue, muscle and deep fascia. CPT code 31721 Implants: None Specimens removed/disposition: Deep tissue culture of myofascial layer sent to microbiology for Gram stain, culture and sensitivity Pathology: none Surgeon: Kenny Wesley DPM Retail Interior Designer: Elissa Estimated blood loss: 25 Less than 1 minute IV fluids: See intraoperative documentation Urine output: None Complications: none Brief History: 53 year old diabetic male patient presenting to the clinic with concerns regarding a new wound to the right heel. Wound has been present for about 3 weeks. He reports that wound began with a blister from shoe gear. Wound to right heel has an eschar center with foul odor present. He is currently taking Augmentin 875mg BID and Doxycycline 100mg BID. He states that oral antibiotics were started yesterday. Patient has a hx of a transmetatarsal amputation of the left foot completed on 01/29/24. X-ray suspicious for soft tissue emphysema adjacent to right calcaneus, x-ray taken 04/30/2024 CT scan 04/30/2024 shows posterior medial plantar heel wound with adjacent subcutaneous air consistent with gas producing cellulitis without abscess. Dressing Betadine wet-to-dry Bedside debridement performed in clinic prior to emergency department admission and hospitalization, postdebridement aerobic and anaerobic cultures taken and sent to microbiology for Gram stain, culture and sensitivity N.p.o. Nonweightbearing right lower extremity Scheduled for surgical debridement right lower extremity 05/01/2024 8:00 AM I reviewed at length with the patient, the risks, potential complications, benefits, alternatives, expectations, and typical outcomes associated with the surgery. The risks and potential complications were explained in detail, including but not limited to infection, wound dehiscence or soft tissue complications, bleeding and hematoma, chronic edema, neuritis or nerve damage producing numbness or chronic pain, CRPS, failure to relieve pain or worsening pain, thick / painful / unsightly scar, limited motion / stiffness, malposition, delayed union, malunion, or nonunion, fracture, reaction to implants, anesthetic complications, venous thromboembolism, and deformity recurrence. I discussed the notion of no regrets with the patient as it pertains to complications and outcomes. The patient seemed to understand the nature of the proposed care and required convalescence. They asked appropriate questions, answered to their satisfaction. They are aware no guarantees can be made as to a satisfactory outcome and they understand there may be other possible unforeseen complications or outcomes not listed here that will be treated accordingly if they arise. There were no written or implied guarantees given to the patient. They gave informed consent to proceed. Procedure: Patient was brought to the operating room and remained on the gurney in supine position. A timeout was performed. Anesthesia was then administered by the anesthesia service. Well-padded pneumatic tourniquet applied to right high calf. Right lower extremity was then scrubbed, prepped and draped utilizing normal aseptic technique. Right foot was elevated and tourniquet inflated to 250 mmHg. Patient had discomfort with tourniquet and this was then deflated, less than 1 minute tourniquet time. Attention was directed to the right plantar heel where a malodorous wound was appreciated with purulent drainage, wound had eschar centrally and devitalized margins and probed 1 cm deep at the 12 o'clock position. The wound was excisionally and sharply debrided of devitalized epidermis, dermis, subcutaneous tissue, fat layer, muscle and tendon and deep fascia this was performed with brown pickups and a #10 scalpel. The wound was then irrigated with 3 L of saline solution, no residual devitalized tissue was appreciated after sharp and excisional debridement as above, all bleeders were ligated and cauterized as necessary. The wound did not probe to bone. Wound was measured post surgical debridement as above, postdebridement wound measurements 7 cm x 7 cm x 1 cm. The wound was then dressed with saline wet-to-dry with 4 x 4 gauze saturated with saline followed by 4 x 4 dry gauze, Kerlix, ABD pad and 4 inch Coban. Patient tolerated the procedure and anesthesia well and was transferred to the PACU with vital signs stable and vascular status intact. Following a period of postoperative monitoring he will be transferred back to the floor to continue empiric IV antibiotics, strict nonweightbearing right foot. Will continue empiric IV antibiotics until wound cultures yield further information.
[2024-05-01] MEDS: amlodipine 5 mg Tablet PO (09:41)
[2024-05-01] MEDS: metoprolol tartrate 25 mg Tablet PO ×2 (09:41→21:24)
[2024-05-01] MEDS: sennosides-docusate Tablet 2 TAB PO ×2 (09:41→17:52)
[2024-05-01] MEDS: vancomycin 2,000 MG/400 ML PIGGYBACK 200 MG IV ×2 (09:43→22:14)
[2024-05-01] MEDS: insulin glargine 100 units/1 mL 50 UNIT SUBCUT (11:16)
[2024-05-01 11:57] LABS: Glucose Point of Care 217 mg/dL (70-110)
--- NOTE | 2024-05-01 12:26 | P.PN_ITS ---
Vitals/I&O/Wt Last Vital Signs Temp 98.3 F 05/01/24 08:19 Pulse 82 05/01/24 08:19 Resp 18 05/01/24 08:19 BP 98/63 05/01/24 08:19 Pulse Ox 97 05/01/24 08:19 O2 Del Method Room Air 05/01/24 08:19 O2 Flow Rate 6 05/01/24 08:04 04/30/24 05/01/24 05/01/24 22:59 06:59 14:59 Intake Total 1770 / 1770 500 / 2270 240 / 240 Output Total 800 / 800 650 / 1450 25 / 25 Balance 970 / 970 -150 / 820 215 / 215 Weight last 48 hrs Weight 136.395 kg Weight 133.81 kg Weight 133.81 kg Physical Exam 2 Narrative: right foot in bandage Awake and alert Mobility Abdomen soft S1, S2 Hemodynamically stable lungs clear to auscultation Data 05/01/24 03:36 05/01/24 03:36 Micro: Microbiology 04/30/24 13:26 Blood Culture - Preliminary Blood SPECIMEN COLLECTED 04/30/24 13:30 Blood Culture - Preliminary Blood SPECIMEN COLLECTED A&P Assessment and plan (1) Diabetes mellitus, type II, insulin dependent: (2) Cellulitis of right foot: (3) 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 at midnight Going for the debridement in the morning Dr. Wesley consulted Patient does not have any cardiac disease His history of hypertension and insulin-dependent diabetes Check A1c level Avoid lisinopril before surgery Full code Consistent carb diet for tonight Hold off on anticoagulating agent 05/01 Switch to Lantus 75 units twice daily. Patient states that so much he takes at home. Continue clindamycin for toxin suppression for total 48-hour period. Stop on May 02. Continue on vancomycin and Zosyn at this time. Patient is status post OR debridement Await cultures Continue high-dose intensity sliding scale insulin. Continue normal saline 75 cc/h Podiatry consulted. Await recommendations Awaiting hemoglobin A1c results Attestations 2 Medical Necessity Statement*: Requires continued hospitalization for management of gangrene of foot status post or debridement. 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
[2024-05-01] MEDS: insulin lispro 100 unit/1 mL SUBCUT ×3 (12:31→21:35)
[2024-05-01] MEDS: clindamycin 900 MG/50 ML PREMIX 100 MG IV ×2 (12:31→21:35)
[2024-05-01 12:52] LABS: Estmated Average Glucose 186; Hemoglobin A1C 8.1 % (4.0-6.0)
[2024-05-01] MEDS: oxyCODONE 5 mg IR Tab/Cap PO (14:31)
--- NOTE | 2024-05-01 15:37 | P.PHAVANC_ITS ---
Vancomycin Goal - Goal Vancomycin Goal:: 15-20 mg/L Vancomycin Indication:: Osteo - Therapy Current therapy:: Pip/Tazo (3.375 GM IVPB Q8H) Day of therpy:: Day []of [] . Actual body weight (kg): 136.395 kg [place] body weight: 82.20 KG Dosing weight (kg): 136.395 KG - Data Labs: WBC 9.89 10^3/uL (3.29-11.43) 05/01/24 03:36 RBC 4.34 10^6/uL (3.85-5.65) 05/01/24 03:36 Hgb 11.60 g/dL (11.27-16.99) 05/01/24 03:36 Hct 36.9 % (37-53) L 05/01/24 03:36 MCV 85.0 fl (82-101) 05/01/24 03:36 MCH 26.7 pg (27-33) L 05/01/24 03:36 MCHC 31.4 g/dL (30-55) 05/01/24 03:36 RDW 13.9 % (12.1-15.1) 05/01/24 03:36 Sodium 139 mmol/L (136-145) 05/01/24 03:36 Potassium 4.0 mmol/L (3.5-5.1) 05/01/24 03:36 Chloride 100 mmol/L (98-107) 05/01/24 03:36 Carbon Dioxide 29 mmol/L (22-29) 05/01/24 03:36 Anion Gap 14.0 (5-19) 05/01/24 03:36 BUN 15 mg/dL (6-20) 05/01/24 03:36 Creatinine 1.0 mg/dL (0.7-1.2) 05/01/24 03:36 GFR Calculation 78.2 mL/min (90-130) L 05/01/24 03:36 Last dialysis session:: N/A Drug administration history:: Medications Piperacillin Sod/Tazobactam (Sod 3.375 gm/ Sodium Chloride) 50 mls @ 12.5 mls/hr IV Q8H MEME Last Admin: 05/01/24 12:31 Dose: 12.5 mls/hr Vancomycin HCl (Vancocin) 2,000 mg in 400 mls @ 200 mls/hr IV BID@0900,2100 MEME Last Admin: 05/01/24 14:56 Dose: Infused Clindamycin HCl/Dextrose (Cleocin) 900 mg in 50 mls @ 100 mls/hr IV Q8H MEME; Protocol Stop: 05/02/24 19:59 Last Admin: 05/01/24 14:55 Dose: Infused Treatment plan:: new consult Regimen:: Vancomycin 2000mg IVPB q12h dosed by Telepharmacy Follow up:: Scr daily with AM labs Trough scheduled for 05/02/24 @ 0800
[2024-05-01 16:19] LABS: Glucose Point of Care 164 mg/dL (70-110)
[2024-05-01] MEDS: sodium chloride 0.9% 1,000 ML 75 ML IV (17:51)
[2024-05-01 21:20] LABS: Glucose Point of Care 202 mg/dL (70-110)
[2024-05-01] MEDS: morphine 4 mg/mL SDV 1 mL 2 MG IVP (21:27)
[2024-05-01] MEDS: insulin glargine 100 units/1 mL 75 UNIT SUBCUT (21:34)
[2024-05-02] VITALS (10 sets, daily range): BP systolic 113–132; BP diastolic 58–79; PULSE 65–74; RESP 16–20; TEMP 36.6–37; O2SAT 94–97
[2024-05-02] MEDS: oxyCODONE 5 mg IR Tab/Cap PO ×3 (00:50→20:32)
[2024-05-02] MEDS: clindamycin 900 MG/50 ML PREMIX 100 MG IV ×2 (04:54→13:09)
[2024-05-02 05:01] LABS: Basophils % 0.5 %; Eosinophils # 0.4 10^3/uL (0.0-0.8); Eosinophils % 4.1 %; Hematocrit 35.9 % (37-53); Lymphocytes # 2.2 10^3/uL (0.8-4.8); Lymphocytes % 24.6 %; Mean Corpuscular HGB Conc 31.5 g/dL (30-55); Mean Corpuscular Hemoglobin 27.3 pg (27-33); Mean Corpuscular Volume 86.7 fl (82-101); Mean Platelet Volume 9.6 fL (7.4-10.4); Monocytes % 10.9 %; Neutrophils # 5.26 10^3/uL (1.8-7.7); Neutrophils % 59.6 %; Nucleated Red Blood Cells % 0 %; Platelet Count 237 10^3/cmm (157-399); Red Blood Count 4.14 10^6/uL (3.85-5.65); Red Cell Distribution Width 13.9 % (12.1-15.1); White Blood Count 8.82 10^3/uL (3.29-11.43)
[2024-05-02 05:24] LABS: Anion Gap 12.2 (5-19); Blood Urea Nitrogen 12 mg/dL (6-20); Calcium 8.5 mg/dL (8.5-10.5); Carbon Dioxide 27 mmol/L (22-29); Chloride 105 mmol/L (98-107); Creatinine Clr Calc Pharmacy 140.5619; Glomerular Filtration Rate 88.3 mL/min (90-130); Glucose 134 mg/dL (65-115); Magnesium 1.7 mg/dL (1.7-2.3); Osmolality Calculated 292 mOsm/kg (285-295); Potassium 4.2 mmol/L (3.5-5.1); Sodium 140 mmol/L (136-145)
[2024-05-02] MEDS: piperacillin-tazobactam 3.375 GM in sodium chloride 0.9% (plus) 50 ML IV ×3 (06:23→23:05)
[2024-05-02] MEDS: sodium chloride 0.9% 1,000 ML 75 ML IV ×2 (06:25→17:35)
[2024-05-02 06:29] LABS: Glucose Point of Care 143 mg/dL (70-110)
[2024-05-02 08:30] LABS: Vancomycin Trough 17.3 ug/mL (10-15)
[2024-05-02] MEDS: metoprolol tartrate 25 mg Tablet PO ×2 (09:02→20:26)
[2024-05-02] MEDS: sennosides-docusate Tablet 2 TAB PO ×2 (09:02→17:33)
[2024-05-02] MEDS: amlodipine 5 mg Tablet PO (09:02)
[2024-05-02] MEDS: insulin lispro 100 unit/1 mL SUBCUT ×3 (09:02→17:33)
[2024-05-02] MEDS: vancomycin 2,000 MG/400 ML PIGGYBACK 200 MG IV ×2 (09:03→20:26)
[2024-05-02] MEDS: insulin glargine 100 units/1 mL 75 UNIT SUBCUT ×2 (09:03→20:26)
--- NOTE | 2024-05-02 09:11 | P.PN_ITS ---
Subjective 2 Subjective: Patient seen bedside this morning is 1 day status post incision and debridement right heel wound. Denies any acute events overnight. Tolerating regular diet. Afebrile, no leukocytosis. Patient denies any subjective nausea, vomiting, fever, chills, shortness of breath or chest pain. Vitals/I&O/Wt Last Vital Signs Temp 98.4 F 05/02/24 07:40 Pulse 74 05/02/24 08:36 Resp 16 05/02/24 08:36 BP 131/79 05/02/24 07:40 Pulse Ox 96 05/02/24 08:36 O2 Del Method Room Air 05/02/24 08:36 O2 Flow Rate 6 05/01/24 08:04 05/01/24 05/02/24 05/02/24 22:59 06:59 14:59 Intake Total 600 / 2530 1682.5 / 4212.5 240 / 240 Balance 600 / 1755 1682.5 / 3437.5 240 / 240 Weight last 48 hrs Weight 305 lb 3.2 oz Weight 300 lb 11.2 oz Weight 295 lb Weight 295 lb Physical Exam 2 Narrative: GENERAL: Patient is alert and oriented ?3 and in no acute distress. The following is a focused left lower extremity exam. VASCULAR: Dorsalis pedis and posterior tibial arteries palpable +2. Capillary refill time less than 3 seconds to the distal hallux bilaterally. Calf is supple and nontender proximally and distally. Mild edema at the operative site consistent with postoperative course. NEUROLOGICAL: Protective sensation diminished to lower extremities. DERMATOLOGICAL: Wound right posterior heel exposed to myofascial layer measures 7 cm x 7 center by 1 cm, there is a decrease in periwound erythema, no purulent drainage, no crepitus with palpation of adjacent soft tissue. MUSCULOSKELETAL: Status post left transmetatarsal amputation. Data 05/02/24 04:26 05/02/24 04:26 Micro: Microbiology 04/30/24 13:26 Blood Culture - Preliminary Blood NEGATIVE TO DATE 04/30/24 13:30 Blood Culture - Preliminary Blood NEGATIVE TO DATE 05/01/24 07:53 Gram Stain - Final Ankle - Right A&P Assessment and plan (1) Cellulitis of right foot: (2) Diabetes mellitus, type II, insulin dependent: (3) Diabetic wet gangrene of the foot: Plan 53 year old diabetic male patient presenting to the clinic with concerns regarding a new wound to the right heel. Wound has been present for about 3 weeks. He reports that wound began with a blister from shoe gear. Wound to right heel has an eschar center with foul odor present. He is currently taking Augmentin 875mg BID and Doxycycline 100mg BID. He states that oral antibiotics were started yesterday. Patient has a hx of a transmetatarsal amputation of the left foot completed on 01/29/24. X-ray suspicious for soft tissue emphysema adjacent to right calcaneus, x-ray taken 04/30/2024 CT scan 04/30/2024 shows posterior medial plantar heel wound with adjacent subcutaneous air consistent with gas producing cellulitis without abscess. Interim update 1 day status post incision and debridement down to myofascial layer right foot date of operation 05/01/2024 Improvement in surrounding erythema right heel Wound bed is viable Wound cultures pending, would plan for 2 weeks of oral antibiotics at discharge guided by cultures Recommending referral to wound care clinic for follow-up outpatient after this hospitalization Nonweightbearing right lower extremity may toe-touch for transfers Podiatry will follow Attestations 2 Medical Necessity Statement*: Requires empiric IV antibiotics and wound care for wet gangrene, cellulitis and postsurgical debridement date of operation 05/01/2024 Coding Level of Care Code Acute Code for [facility] Fwd Diagnoses Cellulitis of right foot L03.115 Diabetes mellitus, type II, insulin dependent E11.9; Z79.4 Diabetic wet gangrene of the foot E11.52
[2024-05-02 12:11] LABS: Glucose Point of Care 144 mg/dL (70-110)
--- NOTE | 2024-05-02 12:15 | P.PN_ITS ---
Subjective 2 Subjective: Seen this morning. No acute events overnight. Vitals/I&O/Wt Last Vital Signs Temp 98.4 F 05/02/24 07:40 Pulse 74 05/02/24 08:36 Resp 16 05/02/24 09:42 BP 131/79 05/02/24 07:40 Pulse Ox 96 05/02/24 09:42 O2 Del Method Room Air 05/02/24 08:36 O2 Flow Rate 6 05/01/24 08:04 05/01/24 05/02/24 05/02/24 22:59 06:59 14:59 Intake Total 600 / 2530 1682.5 / 4212.5 290 / 290 Balance 600 / 1755 1682.5 / 3437.5 290 / 290 Weight last 48 hrs Weight 138.436 kg Weight 136.395 kg Weight 133.81 kg Weight 133.81 kg Physical Exam 2 Narrative: right foot in bandage Awake and alert Mobility Abdomen soft S1, S2 Hemodynamically stable lungs clear to auscultation Data 05/02/24 04:26 05/02/24 04:26 Micro: Microbiology 04/30/24 13:26 Blood Culture - Preliminary Blood NEGATIVE TO DATE 04/30/24 13:30 Blood Culture - Preliminary Blood NEGATIVE TO DATE 05/01/24 07:53 Gram Stain - Final Ankle - Right A&P Assessment and plan (1) Diabetes mellitus, type II, insulin dependent: (2) Cellulitis of right foot: (3) 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 at midnight Going for the debridement in the morning Dr. Wesley consulted Patient does not have any cardiac disease His history of hypertension and insulin-dependent diabetes Check A1c level Avoid lisinopril before surgery Full code Consistent carb diet for tonight Hold off on anticoagulating agent 05/02 Continue Lantus 75 twice daily ? Stop clindamycin today ? Continue vancomycin and Zosyn ? Patient is status post or debridement ? Await cultures. ? Continue high dose intensity sliding scale insulin ? Stop IV fluids ? Podiatry consulted await recommendations ? Globin A1c 8.1 ? Discussed with podiatry at length today. Patient will need follow-up with wound care clinic at discharge. Plan to treat for 2 weeks with antibiotics pending culture results. Attestations 2 Medical Necessity Statement*: Requires continued hospitalization for management of gangrene of foot status post or debridement. 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
[2024-05-02 18:16] LABS: Glucose Point of Care 157 mg/dL (70-110)
[2024-05-02 21:13] LABS: Glucose Point of Care 106 mg/dL (70-110)
[2024-05-03] VITALS (8 sets, daily range): BP systolic 128–181; BP diastolic 71–80; PULSE 68–75; RESP 16–17; TEMP 36.6–36.7; O2SAT 95–98
[2024-05-03 06:20] LABS: Basophils % 0.5 %; Eosinophils # 0.4 10^3/uL (0.0-0.8); Eosinophils % 5.3 %; Hematocrit 37.1 % (37-53); Lymphocytes # 2.1 10^3/uL (0.8-4.8); Lymphocytes % 28.2 %; Mean Corpuscular HGB Conc 31.5 g/dL (30-55); Mean Corpuscular Hemoglobin 27.2 pg (27-33); Mean Corpuscular Volume 86.3 fl (82-101); Mean Platelet Volume 9.4 fL (7.4-10.4); Monocytes # 0.8 10^3/uL (0.2-0.9); Monocytes % 10.2 %; Neutrophils # 4.11 10^3/uL (1.8-7.7); Neutrophils % 55.4 %; Nucleated Red Blood Cells % 0 %; Platelet Count 235 10^3/cmm (157-399); Red Cell Distribution Width 14.2 % (12.1-15.1); White Blood Count 7.42 10^3/uL (3.29-11.43)
[2024-05-03] MEDS: sodium chloride 0.9% 1,000 ML 75 ML IV (06:24)
[2024-05-03] MEDS: piperacillin-tazobactam 3.375 GM in sodium chloride 0.9% (plus) 50 ML IV (06:24)
[2024-05-03 06:25] LABS: Glucose Point of Care 109 mg/dL (70-110)
[2024-05-03 06:36] LABS: Blood Urea Nitrogen 11 mg/dL (6-20); Calcium 8.5 mg/dL (8.5-10.5); Carbon Dioxide 25 mmol/L (22-29); Chloride 106 mmol/L (98-107); Creatinine Clr Calc Pharmacy 140.9518; Glomerular Filtration Rate 88.3 mL/min (90-130); Glucose 111 mg/dL (65-115); Osmolality Calculated 288 mOsm/kg (285-295); Sodium 139 mmol/L (136-145)
--- NOTE | 2024-05-03 07:01 | P.PN_ITS ---
Subjective 2 Subjective: Patient seen bedside this morning is status post incision and debridement right heel wound. Denies any acute events overnight. Tolerating regular diet. Afebrile, no leukocytosis. Patient denies any subjective nausea, vomiting, fever, chills, shortness of breath or chest pain. Vitals/I&O/Wt Last Vital Signs Temp 98.1 F 05/03/24 04:00 Pulse 68 05/03/24 04:00 Resp 16 05/03/24 04:00 BP 128/73 05/03/24 04:00 Pulse Ox 95 05/03/24 04:00 O2 Del Method CPAP 05/03/24 04:00 O2 Flow Rate 6 05/01/24 08:04 05/02/24 05/03/24 05/03/24 22:59 06:59 14:59 Intake Total 1977.5 / 2507.5 1011.25 / 3518.75 Output Total 2450 / 2450 1450 / 3900 Balance -472.5 / 57.5 -438.75 / -381.25 Weight last 48 hrs Weight 306 lb 12.8 oz Weight 305 lb 3.2 oz Physical Exam 2 Narrative: GENERAL: Patient is alert and oriented ?3 and in no acute distress. The following is a focused left lower extremity exam. VASCULAR: Dorsalis pedis and posterior tibial arteries palpable +2. Capillary refill time less than 3 seconds to the distal hallux bilaterally. Calf is supple and nontender proximally and distally. Mild edema at the operative site consistent with postoperative course. NEUROLOGICAL: Protective sensation diminished to lower extremities. DERMATOLOGICAL: Wound right posterior heel exposed to myofascial layer measures 7 cm x 7 center by 1 cm, there is a decrease in periwound erythema, no purulent drainage, no crepitus with palpation of adjacent soft tissue. MUSCULOSKELETAL: Status post left transmetatarsal amputation. Data 05/03/24 05:47 05/03/24 05:47 Micro: Microbiology 05/01/24 07:53 Gram Stain - Final Ankle - Right Tissue Culture - Preliminary A&P Assessment and plan (1) Cellulitis of right foot: (2) Diabetes mellitus, type II, insulin dependent: (3) Diabetic wet gangrene of the foot: Plan 53 year old diabetic male patient presenting to the clinic with concerns regarding a new wound to the right heel. Wound has been present for about 3 weeks. He reports that wound began with a blister from shoe gear. Wound to right heel has an eschar center with foul odor present. He is currently taking Augmentin 875mg BID and Doxycycline 100mg BID. He states that oral antibiotics were started yesterday. Patient has a hx of a transmetatarsal amputation of the left foot completed on 01/29/24. X-ray suspicious for soft tissue emphysema adjacent to right calcaneus, x-ray taken 04/30/2024 CT scan 04/30/2024 shows posterior medial plantar heel wound with adjacent subcutaneous air consistent with gas producing cellulitis without abscess. Interim update 2 days status post incision and debridement down to myofascial layer right foot date of operation 05/01/2024 Improvement in surrounding erythema right heel Wound bed is viable Wound cultures pending, would plan for 2 weeks of oral antibiotics at discharge guided by cultures Recommending referral to wound care clinic for follow-up outpatient after this hospitalization Nonweightbearing right lower extremity may toe-touch for transfers Podiatry will follow Attestations 2 Medical Necessity Statement*: Requires empiric antibiotics for diabetic foot infection, awaiting cultures and sensitivities Coding Level of Care Code Acute Code for [facility] Fwd Diagnoses Cellulitis of right foot L03.115 Diabetes mellitus, type II, insulin dependent E11.9; Z79.4 Diabetic wet gangrene of the foot E11.52
[2024-05-03] MEDS: vancomycin 2,000 MG/400 ML PIGGYBACK 200 MG IV (08:03)
[2024-05-03] MEDS: amlodipine 5 mg Tablet PO (08:03)
[2024-05-03] MEDS: insulin glargine 100 units/1 mL 75 UNIT SUBCUT (08:03)
[2024-05-03] MEDS: metoprolol tartrate 25 mg Tablet PO (08:03)
[2024-05-03] MEDS: sennosides-docusate Tablet 2 TAB PO (08:03)
--- NOTE | 2024-05-03 10:29 | PC.CHAP ---
Pastoral Care Encounter/Spiritual Assessment Type of Contact [] Declined program administrator visit [] Patient/Family/Request visit [] Outpatient visit [] Follow-up visit [] Physician referral [] Code/Alert [x] Routine visit [] Staff referral [] Actively dying [x] Patient sleeping [] Family support [] [] Out of room [] Palliative care [] [] Receiving care in room [] Pre-surgical visit [] Trauma [] Long length of stay [] ICU visit [] Other: Relational/Emotional Strength [] Patient feels connected with others/family/visitors/staff [] Distress [] Loneliness/isolation [] Abandonment Spirituality of Patient [] Person of Rita [] Attends Evangelical of their Rita [] Believes in Prayer [] Reads Bible or Jewish materials [] There are Spiritual issues to be addressed Medicare Contact Specialist Interventions [x] Prayer [] Active listening [] Non-anxious presence [] Spiritual/emotional support [] Crisis/trauma care [] Spiritual counseling [] Bereavement support [] Provided bereavement packet [] Provided Bible/devotional materials [] Provided toy/stuffed animal, coloring book to patient or family member [] Provided Communion [] Anointing/[place] [] Salvation [] Completed spiritual assessment [] Other: Impact on Illness or Injury [] Angry [] Fearful [] Anxious [] Often cries [] Exhaustion [] Unable to work [] Unable to attend congregation [] Unable to walk/stand [] Unable to read [] Unable to drive [] Unable to eat/drink [] Unable to sleep [] Unable to be with family [] Patient intubated [] Other: Summary Time spent with patient
--- NOTE | 2024-05-03 11:09 | PC.PT ---
PT evaluation attempted 2x in AM. First attempted patient reported he did not sleep well last night and he needed to sleep prior to PT being attempted. Second attempt patient was sleeping and did not wake to PT speaking or touching patient arm.
[2024-05-03 11:24] LABS: Glucose Point of Care 191 mg/dL (70-110)
[2024-05-03] MEDS: oxyCODONE 5 mg IR Tab/Cap PO (11:43)
[2024-05-03] MEDS: insulin lispro 100 unit/1 mL SUBCUT (11:43)
--- NOTE | 2024-05-03 12:54 | PC.SOCIAL ---
IMM Updated Updated pt on IMM. No questions voiced. Provided pt a copy. Initialed, dated, & timed a copy & placed in chart.
--- NOTE | 2024-05-03 13:41 | PM.DCS ---
Discharge Providers Date of Admission: 04/30/24 17:14 Date of Discharge: May 03, 2024 Attending Provider at Admission: Shandra Melendez MD Attending Provider at Discharge: Ulices Weems MD Consults: Podiatry: Dr. Wesley Primary Care Provider: Alejandrina Omalley Diagnoses at Discharge Discharge Diagnosis (1) Cellulitis of right foot: Status: Acute (2) Diabetes mellitus, type II, insulin dependent: Status: Acute (3) Diabetic wet gangrene of the foot: Status: Acute Reason for Visit Reason for Visit: Right Foot infection Brief History: History as per HPI: Zach Crespo is a 53 year old male with past medical history of hypertension, insulin-dependent diabetes, has been pulm with Dr. Wesley for rt foot diabetic ulcer was sent from the clinic for concern related to free air on the x-ray with worsening of cellulitis patient is not endorsing nausea vomiting diarrhea chest pain or fever. He has not noticed any rigors or chills. 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 Wound started with a blister now it has gotten worse with fall order with change in color and drainage. His first dose of antibiotics was yesterday Augmentin and Doxy. He has history of transmetatarsal amputation of left foot. 01/29/2024 Hospital Course Hospital Course Patient was admitted to the hospital further evaluation and management of wet gangrene of the right heel. Podiatry was consulted and he underwent deep debridement of right foot down to and including epidermis, dermis, subcutaneous tissue and muscle along with deep fascia on 05/01. His hospitalization was otherwise unremarkable. Wound cultures are growing coag positive staph. He has been discharged in hemodynamically stable condition on oral linezolid and cefdinir for 14 more days with advised to follow-up with wound care as an outpatient. Physical Exam Narrative: right foot in bandage without any soakage Awake and alert Bilateral normal vesicular breath sounds all over lung [place] with occasional rhonchi, Abdomen: Soft, nontender, no organomegaly, obese Cardiac: S1-S2 regular, no additional murmurs Neurology: AOx3, moving all limbs, Discharge Data Studies Completed and Pending Completed Studies During Hospitalization Category Date Time Status CT foot RT w con [id number] Stat Cat Scan 04/30/24 16:34 Completed Pending at discharge Category Date Time Status Anaerobic Culture Routine Lab 05/01/24 07:53 Results Blood Culture Stat Lab 04/30/24 13:26 Results Tissue Culture and Gram Stain Routine Lab 05/01/24 07:53 Results Radiology Impressions Foot CT 04/30/24 16:34 IMPRESSION: 1. Posteromedial plantar heel wound with adjacent subcutaneous air, skin and subcutaneous edema , consistent with gas-producing cellulitis. No drainable abscess formation. 2. Subacute or chronic nonunited fracture of the 5th proximal phalanx neck. Microbiology 05/01/24 07:53 Foot - Right Anaerobic Culture - Preliminary 05/01/24 07:53 Ankle - Right Gram Stain - Final 05/01/24 07:53 Ankle - Right Tissue Culture - Preliminary 04/30/24 13:26 Blood Blood Culture - Preliminary NEGATIVE TO DATE 04/30/24 13:30 Blood Blood Culture - Preliminary NEGATIVE TO DATE Laboratory Results WBC 7.42 10^3/uL (3.29-11.43) 05/03/24 05:47 RBC 4.30 10^6/uL (3.85-5.65) 05/03/24 05:47 Hgb 11.70 g/dL (11.27-16.99) 05/03/24 05:47 Hct 37.1 % (37-53) 05/03/24 05:47 MCV 86.3 fl (82-101) 05/03/24 05:47 MCH 27.2 pg (27-33) 05/03/24 05:47 MCHC 31.5 g/dL (30-55) 05/03/24 05:47 RDW 14.2 % (12.1-15.1) 05/03/24 05:47 Plt Count 235 10^3/cmm (157-399) 05/03/24 05:47 MPV 9.4 fL (7.4-10.4) 05/03/24 05:47 Neut % (Auto) 55.4 % 05/03/24 05:47 Lymph % (Auto) 28.2 % 05/03/24 05:47 [place] % (Auto) 10.2 % 05/03/24 05:47 Eos % (Auto) 5.3 % 05/03/24 05:47 Baso % (Auto) 0.5 % 05/03/24 05:47 Neut # (Auto) 4.11 10^3/uL (1.8-7.7) 05/03/24 05:47 Lymph # (Auto) 2.1 10^3/uL (0.8-4.8) 05/03/24 05:47 [place] # (Auto) 0.8 10^3/uL (0.2-0.9) 05/03/24 05:47 Eos # (Auto) 0.4 10^3/uL (0.0-0.8) 05/03/24 05:47 Baso # (Auto) 0.0 10^3/uL (0.0-0.1) 05/03/24 05:47 Nucleated RBC % (auto) 0 % 05/03/24 05:47 Nucleated RBCs # 0.0 /100WBC 05/03/24 05:47 PT 17.10 SECONDS (12.1-14.9) H 04/30/24 13:30 INR 1.34 (0.8-1.2) H 04/30/24 13:30 Sodium 139 mmol/L (136-145) 05/03/24 05:47 Potassium 4.0 mmol/L (3.5-5.1) 05/03/24 05:47 Chloride 106 mmol/L (98-107) 05/03/24 05:47 Carbon Dioxide 25 mmol/L (22-29) 05/03/24 05:47 Anion Gap 12.0 (5-19) 05/03/24 05:47 BUN 11 mg/dL (6-20) 05/03/24 05:47 Creatinine 0.9 mg/dL (0.7-1.2) 05/03/24 05:47 GFR Calculation 88.3 mL/min (90-130) L 05/03/24 05:47 Glucose 111 mg/dL (65-115) 05/03/24 05:47 POC Glucose 191 mg/dL (70-110) H 05/03/24 11:14 Estimat Average Glucose 186 05/01/24 03:36 Hemoglobin A1c 8.1 % (4.0-6.0) H 05/01/24 03:36 Calculated Osmolality 288 mOsm/kg (285-295) 05/03/24 05:47 Lactic Acid 2.7 mmol/L (0.5-2.2) H 04/30/24 13:30 Lactic Acid (Sepsis) 1.8 mmol/L (0.5-2.2) 04/30/24 16:14 Calcium 8.5 mg/dL (8.5-10.5) 05/03/24 05:47 Magnesium 1.7 mg/dL (1.7-2.3) 05/02/24 04:26 Total Bilirubin 0.4 mg/dL (0.15-1.2) 04/30/24 13:30 AST 27 U/L (0-40) 04/30/24 13:30 ALT 29 U/L (0-41) 04/30/24 13:30 Alkaline Phosphatase 103 U/L (40-130) 04/30/24 13:30 C-Reactive Protein 20.2 mg/L (0.0-4.9) H 05/01/24 03:36 Total Protein 7.8 g/dL (6.6-8.7) 04/30/24 13:30 Albumin 3.8 g/dL (3.5-5.2) 04/30/24 13:30 Globulin 4.0 g/dL (1.3-4.6) 04/30/24 13:30 Vancomycin Trough 17.3 ug/mL (10-15) H 05/02/24 07:52 Vitals Last Vital Signs Temp 98.0 F 05/03/24 12:00 Pulse 73 05/03/24 12:00 Resp 17 05/03/24 12:00 BP 136/74 05/03/24 12:00 Pulse Ox 96 05/03/24 12:00 O2 Del Method Room Air 05/03/24 12:00 O2 Flow Rate 6 05/01/24 08:04 Discharge Plan Discharge Patient Disposition: Home Condition: Stable Prescriptions: New metoprolol tartrate 25 mg Tablet 25 mg PO BID@0900,2100 Qty: 60 0RF cefdinir 300 mg capsule 300 mg PO Q12H 14 Days Qty: 28 0RF linezolid 600 mg tablet 600 mg PO BID 14 Days Qty: 28 0RF Continued atorvastatin 40 mg tablet 40 mg PO QPM venlafaxine 75 mg capsule,extended release 24hr 75 mg PO DAILY metformin 1,000 mg tablet 1,000 mg PO BID gabapentin 300 mg capsule 600 mg PO BID hydrochlorothiazide 25 mg tablet 25 mg PO DAILY insulin lispro [Humalog KwikPen Insulin] 100 unit/mL insulin pen See Rx Instructions .ROUTE .COMPLEX Rx Instructions: INJECT 30 UNITS IN THE AM, 20 UNITS NEEDED AT NOON, AND 30 UNITS IN THE PM. insulin glargine [Lantus Solostar U-100 Insulin] 100 unit/mL (3 mL) insulin pen 75 unit SUBCUT BID Xarelto 20 mg tablet 20 mg PO BEDTIME Trulicity 4.5 mg/0.5 mL pen injector 4.5 mg SUBCUT Q7D Rx Instructions: Friday bupropion HCl 150 mg tablet sustained-release 12 hr 150 mg PO BID Discontinued amoxicillin-pot clavulanate 875-125 mg tablet 1 tab PO BID doxycycline hyclate 100 mg tablet 100 mg PO BID Discharge Orders: Discharge Order (Routine); Ordered 05/03/24 Ordered By: Ulices Weems Referrals: [facility], [Staff Physician] - 05/06/24 2:00 pm (Right heel wound to deep fascia. [phone]) Alejandrina Omalley PA-C [Primary Care Provider] - 05/10/24 1:00 pm Discharge Diet: Diabetic Discharge Activity: Resume usual activity and Increase activity as tolerated Patient Instructions: Type 2 Diabetes, Metoprolol (By mouth), Cefdinir (By mouth), Linezolid (By mouth), Cellulitis (GEN), Acute Wound Care (DC), Opioid Safety, Post Anesthesia Care Discharge Attestations Time Spent in Discharge Care*: greater than 30 min Specific Discharge Activities: educating patient, discussing with pcp/other providers, discussing with [employer]/social workers/dc planners, documenting/other paperwork and evaluating patient/reviewing data Status at Discharge: Cognitive status at discharge: cognitively intact, Behavioral status at discharge: cooperative, Functional status at discharge: independent ambulation, Overall status at discharge: patient is progressing back to baseline Quality Metrics Clinical Quality Measures [ No reported AMI, CVA or VTE this stay] Coding Level of Care Code 45453 Total time (in minutes) for Discharge: 60 Diagnoses Cellulitis of right foot L03.115 Diabetes mellitus, type II, insulin dependent E11.9; Z79.4 Diabetic wet gangrene of the foot E11.52
[2024-05-03 16:43] LABS: Glucose Point of Care 123 mg/dL (70-110)
== END 2024-05-03 17:24 | disposition home or self-care (01) | DRG 623 ==
LOC: ER 16:42 → MEDSURG 17:14
PROVIDERS: Internal Medicine; Podiatrist Foot & Ankle Surgery; Admitting Provider Internal Medicine; Emergency Provider Emergency Medicine; PCP Physician Assistant; Visit Provider Student in an Organized Health Care Education/Training Program
PROC: 0KBV0ZZ Excision of Right Foot Muscle, Open Approach (ICD-10-PCS; principal; 2024-05-01 08:00)
DX: E11.621 Type 2 diabetes mellitus with foot ulcer (principal); L03.115 Cellulitis of right lower limb; L97.413 Non-pressure chronic ulcer of right heel and midfoot with necrosis of muscle; I10 Essential (primary) hypertension; E11.42 Type 2 diabetes mellitus with diabetic polyneuropathy; G47.33 Obstructive sleep apnea (adult) (pediatric); E78.5 Hyperlipidemia, unspecified; Z89.422 Acquired absence of other left toe(s); Z89.411 Acquired absence of right great toe; Z79.4 Long term (current) use of insulin; Z79.84 Long term (current) use of oral hypoglycemic drugs; Z79.01 Long term (current) use of anticoagulants; Z86.718 Personal history of other venous thrombosis and embolism; Z86.711 Personal history of pulmonary embolism; Z87.891 Personal history of nicotine dependence
CPT/HCPCS: 11043; 11046; 36415; 36416; 70450; 71045; 73630; 73701; 80048; 80053; 80202; 82140; 82962; 83036; 83605; 83690; 83735; 85025; 85610; 86140; 87040; 87070; 87075; 87077; 87176; 87186; 87205; 93005; 96361; 96372; 97161; 99285; J1815; J2270; J2543; J2704; J3372; J3490; J7030; J7050

== ENCOUNTER → 2024-05-06 14:24 | Outpatient (BNVA) | payer MEDICARE, SELFPAY | PROVIDERS: PCP Physician Assistant; Visit Provider Thoracic Surgery (Cardiothoracic Vascular Surgery) | DX: E11.52 Type 2 diabetes mellitus with diabetic peripheral angiopathy with gangrene (principal); E11.621 Type 2 diabetes mellitus with foot ulcer; L97.412 Non-pressure chronic ulcer of right heel and midfoot with fat layer exposed | CPT/HCPCS: 11042; 11045; 99213 ==

== ENCOUNTER → 2024-05-13 15:32 | Outpatient (BNVA) | payer MEDICARE, SELFPAY | PROVIDERS: PCP Physician Assistant; Visit Provider Thoracic Surgery (Cardiothoracic Vascular Surgery) | DX: E11.52 Type 2 diabetes mellitus with diabetic peripheral angiopathy with gangrene (principal); E11.621 Type 2 diabetes mellitus with foot ulcer; L97.412 Non-pressure chronic ulcer of right heel and midfoot with fat layer exposed | CPT/HCPCS: 11042; 11045; 97605 ==

== ENCOUNTER → 2024-05-17 15:00 | Outpatient (BNVA) | payer MEDICARE, SELFPAY | PROVIDERS: PCP Physician Assistant; Visit Provider Thoracic Surgery (Cardiothoracic Vascular Surgery) | DX: T81.31XD Disruption of external operation (surgical) wound, not elsewhere classified, subsequent encounter (principal); Y83.8 Other surgical procedures as the cause of abnormal reaction of the patient, or of later complication, without mention of misadventure at the time of the procedure; E11.621 Type 2 diabetes mellitus with foot ulcer; L97.512 Non-pressure chronic ulcer of other part of right foot with fat layer exposed | CPT/HCPCS: 97605 ==

== ENCOUNTER → 2024-05-20 14:24 | Outpatient (BNVA) | payer MEDICARE, SELFPAY | PROVIDERS: PCP Physician Assistant; Visit Provider Thoracic Surgery (Cardiothoracic Vascular Surgery) | DX: E11.52 Type 2 diabetes mellitus with diabetic peripheral angiopathy with gangrene (principal); E11.621 Type 2 diabetes mellitus with foot ulcer; L97.412 Non-pressure chronic ulcer of right heel and midfoot with fat layer exposed | CPT/HCPCS: 97597; 97598; 97605; A6237; A6250 ==

== ENCOUNTER → 2024-05-24 14:40 | Outpatient (BNVA) | payer MEDICARE, SELFPAY | PROVIDERS: PCP Physician Assistant; Visit Provider Thoracic Surgery (Cardiothoracic Vascular Surgery) | DX: T81.31XD Disruption of external operation (surgical) wound, not elsewhere classified, subsequent encounter (principal); Y83.8 Other surgical procedures as the cause of abnormal reaction of the patient, or of later complication, without mention of misadventure at the time of the procedure; E11.621 Type 2 diabetes mellitus with foot ulcer; L97.512 Non-pressure chronic ulcer of other part of right foot with fat layer exposed | CPT/HCPCS: 97605; A6237; A6250 ==

== ENCOUNTER → 2024-05-27 10:30 | Outpatient (BNVA) | payer MEDICARE, SELFPAY | PROVIDERS: PCP Physician Assistant; Visit Provider Thoracic Surgery (Cardiothoracic Vascular Surgery) | DX: T81.31XD Disruption of external operation (surgical) wound, not elsewhere classified, subsequent encounter (principal); Y83.8 Other surgical procedures as the cause of abnormal reaction of the patient, or of later complication, without mention of misadventure at the time of the procedure; E11.621 Type 2 diabetes mellitus with foot ulcer; L97.512 Non-pressure chronic ulcer of other part of right foot with fat layer exposed | CPT/HCPCS: A6237; A6250 ==

== ENCOUNTER → 2024-05-31 12:58 | Outpatient (BNVA) | payer MEDICARE, SELFPAY | PROVIDERS: PCP Physician Assistant; Visit Provider Thoracic Surgery (Cardiothoracic Vascular Surgery) | DX: T81.31XD Disruption of external operation (surgical) wound, not elsewhere classified, subsequent encounter (principal); Y83.8 Other surgical procedures as the cause of abnormal reaction of the patient, or of later complication, without mention of misadventure at the time of the procedure; E11.621 Type 2 diabetes mellitus with foot ulcer; L97.512 Non-pressure chronic ulcer of other part of right foot with fat layer exposed | CPT/HCPCS: 97605; A6237; A6250 ==

== ENCOUNTER → 2024-06-03 10:57 | Outpatient (BNVA) | payer MEDICARE, SELFPAY | PROVIDERS: PCP Physician Assistant; Visit Provider Thoracic Surgery (Cardiothoracic Vascular Surgery) | DX: E11.52 Type 2 diabetes mellitus with diabetic peripheral angiopathy with gangrene (principal); E11.621 Type 2 diabetes mellitus with foot ulcer; L97.411 Non-pressure chronic ulcer of right heel and midfoot limited to breakdown of skin | CPT/HCPCS: 97597; 97598; A6237; A6250 ==

== ENCOUNTER 2024-06-06 17:06 | Inpatient (IN) | payer MEDICARE, SELFPAY ==
[2024-06-06 17:19] VITALS: BP 145/71; PULSE 122; TEMP 39.5; O2SAT 96; BMI 38.2
--- NOTE | 2024-06-06 17:33 | XRR_ITS ---
PROCEDURE INFORMATION: Exam: XR Chest Exam date and time: 06/06/2024 5:45 PM Age: 54 years old Clinical indication: Fever; Additional info: Fever; Open round to RT heel TECHNIQUE: Imaging protocol: Radiologic exam of the chest. Views: 1 view. COMPARISON: CR XR chest 1V portable [id number] 01/27/2024 10:05 AM FINDINGS: Lungs: Lungs are clear. Pleural spaces: There is no pleural effusion or pneumothorax. Heart/Mediastinum: Cardiomediastinal contours are unremarkable. Bones/joints: Bones are unremarkable. XR/XR chest 1V portable [id number] IMPRESSION: No acute findings.
--- NOTE | 2024-06-06 17:37 | XRR_ITS ---
PROCEDURE INFORMATION: Exam: XR Right Foot Exam date and time: 06/06/2024 5:45 PM Age: 54 years old Clinical indication: Pain; Right; Patient HX: Ulcerative wound to RT heel; Diabetes; Concern for osteomyelitis TECHNIQUE: Imaging protocol: Radiologic exam of the right foot. Views: 3 or more views. COMPARISON: CT foot RT w con [id number] 04/30/2024 6:00 PM FINDINGS: Bones/joints: Alignment is normal. There is a healed fracture of the distal metaphysis of the proximal 5th phalanx. There is mild deformity of the distal 1st phalanx. Possible healed fracture. No acute fracture. No bone erosion. Soft tissues: There is dermal ulceration and skin thickening at the plantar aspect of the heel. No visible soft tissue gas. Vasculature: Vascular calcification is present. XR/XR foot RT min 3V* [id number] IMPRESSION: 1. No sign of osteomyelitis. 2. Plantar dermal ulcer at the heel.
--- NOTE | 2024-06-06 17:50 | ED_ITS ---
HPI - Extremity Problem 2 General: Chief complaint: Extremity Problem,Nontraumatic Stated complaint: possible infection on amputated foot Time Seen by Provider: 06/06/24 17:25 History of Present Illness: 54-year-old man with history of DVT, pul monary embolism, diabetic nephropathy, diabetes, hypertension, obesity and a chronic left foot wound who presents emergency room with fever and worsening pain. He says the pain is extremely severe. Office started about 2 hours ago. He has been having rigors. His temp is 103 on presentation. He denies any cough. No abdominal pain. No nausea or vomiting. Related Data Home Medications Medication Instructions Recorded Confirmed atorvastatin 40 mg tablet 40 mg PO QPM 01/27/24 04/30/24 gabapentin 300 mg capsule 600 mg PO BID 01/27/24 04/30/24 hydrochlorothiazide 25 mg tablet 25 mg PO DAILY 01/27/24 04/30/24 insulin glargine 100 unit/mL (3 75 unit SUBCUT BID 01/27/24 04/30/24 mL) subcutaneous pen (Lantus Solostar U-100 Insulin) insulin lispro 100 unit/mL See Rx Instructions .Route .COMPLEX 01/27/24 04/30/24 subcutaneous pen (Humalog KwikPen (U-100) Insulin) metformin 1,000 mg tablet 1,000 mg PO BID 01/27/24 04/30/24 rivaroxaban 20 mg tablet (Xarelto) 20 mg PO BEDTIME 01/27/24 04/30/24 venlafaxine 75 mg capsule,extended 75 mg PO DAILY 01/27/24 04/30/24 release 24 hr bupropion HCl 150 mg tablet,12 hr 150 mg PO BID 04/05/24 04/30/24 sustained-release dulaglutide 4.5 mg/0.5 mL 4.5 mg SUBCUT Q7D 04/05/24 04/30/24 subcutaneous pen injector (Trulicity) Previous Rx's Medication Instructions Recorded metoprolol tartrate 25 mg tablet 25 mg PO BID@0900,2100 #60 tabs 05/03/24 hydrocodone 5 mg-acetaminophen 325 1 tab PO Q8H PRN pain 7 days #21 05/05/24 mg tablet tabs Allergies Allergy/AdvReac Type Severity Reaction Status Date / Time No Known Allergies Allergy Verified 06/06/24 17:27 Review of Systems 2 Narrative: Constitutional symptoms: Negative except as documented in HPI. Skin symptoms: Negative except as documented in HPI. Eye symptoms: Negative except as documented in HPI. ENMT symptoms: Negative except as documented in HPI. Respiratory symptoms: Negative except as documented in HPI. Cardiovascular symptoms: Negative except as documented in HPI. Gastrointestinal symptoms: Negative except as documented in HPI. Genitourinary symptoms: Negative except as documented in HPI. Musculoskeletal symptoms: Negative except as documented in HPI. Neurologic symptoms: Negative except as documented in HPI. Psychiatric symptoms: Negative except as documented in HPI. Endocrine symptoms: Negative except as documented in HPI. PFSH ED 2 PFSH: Medical History Diabetes mellitus, type II, insulin dependent Chronic osteomyelitis of left foot Puncture wound of left foot Non-pressure chronic ulcer of other part of left foot with necrosis of bone Diabetic peripheral neuropathy associated with type 2 diabetes mellitus Cystitis BMI 37.0-37.9, adult Cellulitis of toe of left foot Chronic anticoagulation Xarelto Obstructive sleep apnea treated with bilevel positive airway pressure (BPAP) Settings 07/06 Diabetic neuropathy History of pulmonary embolism 2007, 1st episode, severe; has had recurrent clotting and in on lifelong anticoagulation with xarelto History of DVT (deep vein thrombosis) 2007, 1st onset, has had recurrent blood clots and is now on chronic anticoagulation with xarelto Dyslipidemia Hypertension Surgical History 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, nonhealing Hx of reduction of orbital fracture History of hip surgery bilateral hips at age 12 for what sounds like recurrent dislocation or dysplasia History of carpal tunnel release of both wrists left x 1, right x 1 History of back surgery low back x 2 Family History Mother Colon cancer diagnosis in her early 50s Other Cancer of female organs Diabetes Heart disease Stroke Social History Smoking and tobacco/nicotine status: former use of tobacco/nicotine Alcohol intake: never Substance/Drug Use: former Former substance use details: has used THC for back pain control & after surgeries in past but none now Caregiver/support person: Yes Physical Exam 2 Narrative: EXAM NARRATIVE: General: Alert, no acute distress. Skin: Warm, dry. Large round ulcer with foul-smelling drainage on the left heel. Head: Normocephalic, atraumatic. Neck: Supple, trachea midline. Eye: Extraocular movements are intact. Ears, nose, mouth and throat: mucosa moist. Cardiovascular: Regular, tachycardic, Normal peripheral perfusion. Respiratory: Lungs are clear to auscultation, respirations are non-labored, breath sounds are equal, Symmetrical chest wall expansion. Gastrointestinal: Soft, Nontender, Non distended Musculoskeletal: Normal ROM, no deformity. Neurological: Alert and oriented, No focal neurological deficit observed. Psychiatric: Cooperative, appropriate mood & affect. Course 2 Vital Signs: Vital signs: Vital Signs Temperature 100.7 F H 06/06/24 20:06 Pulse Rate 116 H 06/06/24 20:06 Respiratory Rate 20 H 06/06/24 20:06 Blood Pressure 132/70 06/06/24 20:06 Pulse Oximetry 97 06/06/24 20:06 Oxygen Delivery Me thod Room Air 06/06/24 20:06 MDM - Extremity (Nontraumatic) Medical Decision Making Medical decision making: Differential diagnosis including but not limited to and based on the above HPI, review of systems and physical exam: With this patient with fever and a worsening foot ulcer would be concern for sepsis, gangrene, and will rule out other infections such as COVID and urinary infection. Orders placed to evaluate differential diagnosis based on the above differential, HPI and physical exam Lab Review: Laboratory results were reviewed and interpreted by myself the emergency room physician. Mild leukocytosis with a white count of 13.5. Hemoglobin stable 11.8. BUN/creatinine normal at 15 and 1.1. Glucose is slightly elevated at 250. CRP is elevated in the 40s. Lactate is elevated at 3. X-ray of the foot: No evidence of osteo or free air. There is soft tissue abnormality. I reviewed the patient's medical record. Consultation: I spoke with Dr. Hoskins who is on-call for the machine tool designer at this time. He is seeing the patient in the emergency room. And recommends IV antibiotics. He will see the patient here in the emergency room. Consultation: I spoke with Dr. Weems who is on-call for the hospitalist. He agrees to admission. Assessment and plan: Diabetic foot infection Fever Hyperglycemia ?IV Dilaudid, IV meropenem, IV linezolid. ?Possible sepsis. Mild leukocytosis. He was tachycardic but I think this is from the fever. Lactic acid is mildly elevated. Giving a single liter of fluids and can be reevaluated afterwards given the fluid shortage. Blood cultures were ordered. -I discussed the patient with the hospitalist on-call who is admitting the patient. - Discussed findings and plan with patient. Answered any questions. - All laboratory values were reviewed and interpreted personally by myself, the ER physician - All imaging was reviewed and interpreted personally by myself, the ER physician. - Evaluation and treatment of this problem were appropriate in the emergency setting Lab Data 06/06/24 17:46 06/06/24 17:46 Radiology Impressions Chest X-Ray 06/06/24 17:33 IMPRESSION: No acute findings. Foot X-Ray 06/06/24 17:37 IMPRESSION: 1. No sign of osteomyelitis. 2. Plantar dermal ulcer at the heel. Lower Extremity CT 06/06/24 18:24 IMPRESSION: 1. Plantar dermal skin thickening at the heel with interval healing of plantar dermal ulcer visible on 04/30/2024. No soft tissue gas. No fluid collection. 2. No bone erosion to suggest osteomyelitis. 3. Stable nondisplaced fracture of the 5th proximal phalanx. 4. Incidental findings above. Laboratory Results WBC 13.51 10^3/uL (3.29-11.43) H 06/06/24 17:46 RBC 4.45 10^6/uL (3.85-5.65) 06/06/24 17:46 Hgb 11.80 g/dL (11.27-16.99) 06/06/24 17:46 Hct 36.9 % (37-53) L 06/06/24 17:46 MCV 82.9 fl (82-101) 06/06/24 17:46 MCH 26.5 pg (27-33) L 06/06/24 17:46 MCHC 32.0 g/dL (30-55) 06/06/24 17:46 RDW 15.9 % (12.1-15.1) H 06/06/24 17:46 Plt Count 225 10^3/cmm (157-399) 06/06/24 17:46 MPV 9.7 fL (7.4-10.4) 06/06/24 17:46 Neut % (Auto) 78.7 % 06/06/24 17:46 Lymph % (Auto) 11.3 % 06/06/24 17:46 [place] % (Auto) 7.7 % 06/06/24 17:46 Eos % (Auto) 1.6 % 06/06/24 17:46 Baso % (Auto) 0.3 % 06/06/24 17:46 Neut # (Auto) 10.63 10^3/uL (1.8-7.7) H 06/06/24 17:46 Lymph # (Auto) 1.5 10^3/uL (0.8-4.8) 06/06/24 17:46 [place] # (Auto) 1.0 10^3/uL (0.2-0.9) H 06/06/24 17:46 Eos # (Auto) 0.2 10^3/uL (0.0-0.8) 06/06/24 17:46 Baso # (Auto) 0.0 10^3/uL (0.0-0.1) 06/06/24 17:46 Nucleated RBC % (auto) 0 % 06/06/24 17:46 Nucleated RBCs # 0.0 /100WBC 06/06/24 17:46 ESR 47 mm/hr (0-10) H 06/06/24 17:46 Sodium 136 mmol/L (136-145) 06/06/24 17:46 Potassium 4.7 mmol/L (3.5-5.1) 06/06/24 17:46 Chloride 101 mmol/L (98-107) 06/06/24 17:46 Carbon Dioxide 23 mmol/L (22-29) 06/06/24 17:46 Anion Gap 16.7 (5-19) 06/06/24 17:46 BUN 15 mg/dL (6-20) 06/06/24 17:46 Creatinine 1.1 mg/dL (0.7-1.2) 06/06/24 17:46 GFR Calculation 69.8 mL/min (90-130) L 06/06/24 17:46 Glucose 250 mg/dL (65-115) H 06/06/24 17:46 Calculated Osmolality 291 mOsm/kg (285-295) 06/06/24 17:46 Lactic Acid 3.0 mmol/L (0.5-2.2) H 06/06/24 17:46 Calcium 8.9 mg/dL (8.5-10.5) 06/06/24 17:46 Iron 55 ug/dL (59-158) L 06/06/24 17:46 TIBC 389 mcg/dl 06/06/24 17:46 % Saturation 14.1 % (20-50) L 06/06/24 17:46 Unsat Iron Binding 334 ug/dL (112-347) 06/06/24 17:46 Total Bilirubin 0.4 mg/dL (0.15-1.2) 06/06/24 17:46 AST 21 U/L (0-40) 06/06/24 17:46 ALT 28 U/L (0-41) 06/06/24 17:46 Alkaline Phosphatase 83 U/L (40-130) 06/06/24 17:46 C-Reactive Protein 6.8 mg/L (0.0-4.9) H 06/06/24 17:46 Total Protein 7.0 g/dL (6.6-8.7) 06/06/24 17:46 Albumin 3.9 g/dL (3.5-5.2) 06/06/24 17:46 Globulin 3.1 g/dL (1.3-4.6) 06/06/24 17:46 Vitamin B12 867 pg/mL (232-1245) 06/06/24 17:46 Procalcitonin 0.14 ng/mL (0-0.5) 06/06/24 17:46 TSH 0.70 uIU/mL (0.27-4.20) 06/06/24 17:46 Urine Color Yellow (Yellow) 06/06/24 18:15 Urine Appearance Clear (CLEAR) 06/06/24 18:15 Urine pH 8.0 (5-7) A 06/06/24 18:15 Ur Specific [place] 1.018 (1.005-1.030) 06/06/24 18:15 Urine Protein Negative (Negative) 06/06/24 18:15 Urine Glucose (UA) Trace (Normal) H 06/06/24 18:15 Urine Ketones Negative (Negative) 06/06/24 18:15 Urine Blood Negative (Negative) 06/06/24 18:15 Urine Nitrate Negative (Negative) 06/06/24 18:15 Urine Bilirubin Negative (Negative) 06/06/24 18:15 Urine Urobilinogen 1.0 mg/dL (Negative) 06/06/24 18:15 Ur Leukocyte Esterase Negative (Negative) 06/06/24 18:15 Urine RBC 0-2 /hpf (0-2) 06/06/24 18:15 Urine WBC 0-5 /hpf (0-5) 06/06/24 18:15 Ur Squamous Epith Cells 0-5 /hpf (0-5) 06/06/24 18:15 Amorphous Sediment Not Reportable 06/06/24 18:15 Urine Bacteria None seen /hpf (NONE) 06/06/24 18:15 Hyaline Casts 1.65 /lpf 06/06/24 18:15 Coronavirus (PCR) Negative (Negative) 06/06/24 18:00 Influenza A (PCR) Negative (Negative) 06/06/24 18:00 Influenza Type B (PCR) Negative (Negative) 06/06/24 18:00 RSV (PCR) Negative (Negative) 06/06/24 18:00 XR interpretation done by ED provider, pending radiology final review Discharge Plan Discharge Patient Disposition: Admitted As Inpatient Admit Provider: Ulices Weems Clinical Impression: Diabetic wet gangrene of the foot Condition: Stable Coding Level of Care Code ED [employer] for Tavo Rodrigues
[2024-06-06 17:53] LABS: Basophils % 0.3 %; Eosinophils # 0.2 10^3/uL (0.0-0.8); Eosinophils % 1.6 %; Hematocrit 36.9 % (37-53); Lymphocytes # 1.5 10^3/uL (0.8-4.8); Lymphocytes % 11.3 %; Mean Corpuscular Hemoglobin 26.5 pg (27-33); Mean Corpuscular Volume 82.9 fl (82-101); Mean Platelet Volume 9.7 fL (7.4-10.4); Monocytes % 7.7 %; Neutrophils # 10.63 10^3/uL (1.8-7.7); Neutrophils % 78.7 %; Nucleated Red Blood Cells % 0 %; Platelet Count 225 10^3/cmm (157-399); Red Blood Count 4.45 10^6/uL (3.85-5.65); Red Cell Distribution Width 15.9 % (12.1-15.1); White Blood Count 13.51 10^3/uL (3.29-11.43)
[2024-06-06] MEDS: ibuprofen 800 mg tablet PO (17:58)
[2024-06-06 17:59] LABS: Erythrocyte Sedimentation Rate 47 mm/hr (0-10)
[2024-06-06 18:15] LABS: Alanine Aminotransferase 28 U/L (0-41); Albumin Level 3.9 g/dL (3.5-5.2); Alkaline Phosphatase 83 U/L (40-130); Anion Gap 16.7 (5-19); Aspartate Amino Transferase 21 U/L (0-40); Blood Urea Nitrogen 15 mg/dL (6-20); C Reactive Protein 6.8 mg/L (0.0-4.9); Calcium 8.9 mg/dL (8.5-10.5); Carbon Dioxide 23 mmol/L (22-29); Chloride 101 mmol/L (98-107); Creatinine Clr Calc Pharmacy 112.2652; Globulin 3.1 g/dL (1.3-4.6); Glomerular Filtration Rate 69.8 mL/min (90-130); Glucose 250 mg/dL (65-115); Osmolality Calculated 291 mOsm/kg (285-295); Potassium 4.7 mmol/L (3.5-5.1); Sodium 136 mmol/L (136-145); Total Bilirubin 0.4 mg/dL (0.15-1.2)
--- NOTE | 2024-06-06 18:24 | CTR_ITS ---
PROCEDURE INFORMATION: Exam: CT Right Lower Extremity Exam date and time: 06/06/2024 6:35 PM Age: 54 years old Clinical indication: Patient HX: Diabetic ulceration to heel of RT foot. Patient febrile with elevated wbc. ; Additional info: Leg pain TECHNIQUE: Imaging protocol: CT of the right lower extremity without contrast was performed. Radiation optimization: All CT scans at this facility use at least one of these dose optimization techniques: automated exposure control; mA and/or kV adjustment per patient size (includes targeted exams where dose is matched to clinical indication); or iterative reconstruction. Contrast material: OMNI 350; Contrast volume: 100 ml; Contrast route: INTRAVENOUS (IV); COMPARISON: CT foot RT w con [id number] 04/30/2024 6:00 PM RADIATION DOSE METRICS: Total DLP (mGy-cm): 847.65 FINDINGS: Bones/joints: Ankle alignment is normal. There is mild osteoarthritis at the ankle. Hindfoot alignment is normal. There is no bone erosion. There is a small unfused os trigonum. There is mild osteoarthritis in the midfoot. No acute fracture. There is a stable nondisplaced fracture of the distal margin of the proximal 5th phalanx. Soft tissues: There is irregular dermal thickening at the plantar aspect of the heel with minimal adjacent subcutaneous edema and no fluid collection or soft tissue gas. There is mild diffuse subcutaneous edema at the ankle. There is extensive vascular calcification in the lower leg and foot. CT/CT lower leg RT w con [id number] IMPRESSION: 1. Plantar dermal skin thickening at the heel with interval healing of plantar dermal ulcer visible on 04/30/2024. No soft tissue gas. No fluid collection. 2. No bone erosion to suggest osteomyelitis. 3. Stable nondisplaced fracture of the 5th proximal phalanx. 4. Incidental findings above.
[2024-06-06 18:27] VITALS: PULSE 112; O2SAT 98
[2024-06-06 18:32] LABS: Bilirubin Urine Negative (Negative); Blood Urine Negative (Negative); Glucose Urine UA Trace (Normal); Ketones Urine Negative (Negative); Leukocyte Esterase Urine Negative (Negative); Nitrate Urine Negative (Negative); Protein Urine Negative (Negative); Specific Gravity, Urine 1.018 (1.005-1.030); Urine Appearance Clear (CLEAR); Urine Color Yellow (Yellow)
[2024-06-06 18:36] LABS: Bacteria Urine None Seen /hpf; Hyaline Casts Urine 1.65 /lpf; RBC Urine 0-2 /hpf (0-2); Squamous Epithelial Cell Urine 0-5 /hpf (0-5); WBC Urine 0-5 /hpf (0-5)
[2024-06-06] MEDS: iohexol 350 mg/mL 500 mL Btl (per mL) IV (18:40)
[2024-06-06 18:54] LABS: Covid PCR NEGATIVE (Negative); Influenza A NEGATIVE (Negative); Influenza B NEGATIVE (Negative); Respiratory Syncytial Virus Ce NEGATIVE (Negative)
[2024-06-06] MEDS: meropenem 500 mg SDV IVP (18:55)
[2024-06-06] MEDS: linezolid premix 600 MG/300 ML PREMIX 300 MG IV (18:55)
--- NOTE | 2024-06-06 19:04 | P.CONIM_ITS ---
Providers/Reason For Consult 2 Consulting Physician/Specialty*: Clifton Del Castillo.P.M./podiatry Reason for Consult*: Chronic ulceration to right heel, cellulitis Attending Physician: Ulices Weems MD Primary Care Provider: Alejandrina Omalley History of Present Illness History of Present Illness Zach Crespo is a 54 year old male with past medical history significant for type 2 diabetes, neuropathy, status post left transmetatarsal amputation due to osteomyelitis who has a chronic ulceration to the plantar aspect of the right foot for which he is seeing wound care on a weekly basis. Most recent visit was 06/03/2024. At most recent wound care visit wound was noted to be granulating nicely with no evidence of probe to bone or deep underlying infection. Per wound care notes patient is on wound VAC therapy which is being changed twice weekly. Patient states that yesterday 06/05/2024 he was removing his sock when he accidentally removed the entire wound VAC dressing. He subsequently dressed the right heel wound with a dry sterile dressing. Patient states that earlier today 06/06/2024 he began to feel slightly feverish and chilled. He states that his chills continue to progress throughout the day. Patient's mother called the hospital to talk with the on-call materials engineering technician. She stated to me that Zach had become increasingly more ill throughout the day and wanted advice on what to do. I directed him to the emergency department for further workup and evaluation. Upon evaluating Zach in the emergency department he has rigors and states that he has extreme pain in his right heel radiating up to his neck and head. He states I can even feel the pain in my fingertips . Patient denies any recent diarrhea, abdominal pain, difficulty or pain with urination. He denies any recent illnesses. Denies any shortness of breath, cough or chest pain. Of note, patient underwent transmetatarsal amputation of left foot on 01/29/2024. Review of Systems 2 General: Reports: 10 or more systems reviewed and unremarkable except in HPI and below Const: Denies: fever(s), chills, body aches or change in appetite Eyes: Denies: change in vision or blurry vision Card: Denies: chest pain, palpitations or irregular heart rhythm Resp: Denies: dyspnea GI: Denies: abdominal pain, nausea, vomiting or diarrhea Musc: Reports: joint stiffness Skin/Breast: Reports: non-healing lesions and lesions Neuro: Reports: numbness in extremities Medications/Allergies Home Medications Medication Instructions Recorded Confirmed Last Taken Type atorvastatin 40 mg tablet 40 mg PO QPM 01/27/24 04/30/24 04/29/24 History gabapentin 300 mg capsule 600 mg PO BID 01/27/24 04/30/24 04/30/24 History hydrochlorothiazide 25 mg tablet 25 mg PO DAILY 01/27/24 04/30/24 04/30/24 History insulin glargine 100 unit/mL (3 75 unit SUBCUT BID 01/27/24 04/30/24 04/30/24 History mL) subcutaneous pen (Lantus Solostar U-100 Insulin) insulin lispro 100 unit/mL See Rx Instructions .Route .COMPLEX 01/27/24 04/30/24 04/30/24 History subcutaneous pen (Humalog KwikPen (U-100) Insulin) metformin 1,000 mg tablet 1,000 mg PO BID 01/27/24 04/30/24 04/30/24 History rivaroxaban 20 mg tablet (Xarelto) 20 mg PO BEDTIME 01/27/24 04/30/24 04/30/24 History venlafaxine 75 mg capsule,extended 75 mg PO DAILY 01/27/24 04/30/24 04/30/24 History release 24 hr bupropion HCl 150 mg tablet,12 hr 150 mg PO BID 04/05/24 04/30/24 04/30/24 History sustained-release dulaglutide 4.5 mg/0.5 mL 4.5 mg SUBCUT Q7D 04/05/24 04/30/24 04/25/24 History subcutaneous pen injector (Trulicity) metoprolol tartrate 25 mg tablet 25 mg PO BID@0900,2100 #60 tabs 05/03/24 Unknown Rx hydrocodone 5 mg-acetaminophen 325 1 tab PO Q8H PRN pain 7 days #21 05/05/24 Unknown Rx mg tablet tabs Allergies Allergy/AdvReac Type Severity Reaction Status Date / Time No Known Allergies Allergy Verified 06/06/24 17:27 Current Medications Generic Name Dose Route Start Last Admin Trade Name Freq PRN Reason Stop Dose Admin Iohexol 0 ml 06/06/24 18:40 06/06/24 18:40 Iohexol 350 Mg/Ml 500 Ml Btl (Per Ml) IV 06/06/24 18:41 100 ml ONCE ONE Administration PFSH Acute 2 PFSH: Medical History Diabetes mellitus, type II, insulin dependent Chronic osteomyelitis of left foot Puncture wound of left foot Non-pressure chronic ulcer of other part of left foot with necrosis of bone Diabetic peripheral neuropathy associated with type 2 diabetes mellitus Cystitis BMI 37.0-37.9, adult Cellulitis of toe of left foot Chronic anticoagulation Xarelto Obstructive sleep apnea treated with bilevel positive airway pressure (BPAP) Settings 07/06 Diabetic neuropathy History of pulmonary embolism 2006, 1st episode, severe; has had recurrent clotting and in on lifelong anticoagulation with xarelto History of DVT (deep vein thrombosis) 2006, 1st onset, has had recurrent blood clots and is now on chronic anticoagulation with xarelto Dyslipidemia Hypertension Surgical History 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, nonhealing Hx of reduction of orbital fracture History of hip surgery bilateral hips at age 12 for what sounds like recurrent dislocation or dysplasia History of carpal tunnel release of both wrists left x 1, right x 1 History of back surgery low back x 2 Family History Mother Colon cancer diagnosis in her early 50s Other Cancer of female organs Diabetes Heart disease Stroke Social History Smoking and tobacco/nicotine status: former use of tobacco/nicotine Alcohol intake: never Substance/Drug Use: former Former substance use details: has used THC for back pain control & after surgeries in past but none now Caregiver/support person: Yes Vitals/I&O/Wt Last Vital Signs Temp 103.1 F H 06/06/24 17:19 Pulse 112 H 06/06/24 18:27 BP 145/71 06/06/24 17:19 Pulse Ox 98 06/06/24 18:27 O2 Del Method Room Air 06/06/24 18:27 Weight last 48 hrs Weight 298 lb Physical Exam 2 Narrative: BELOW IS A FOCUSED LOWER EXTREMITY EXAM GENERAL: A&O x 3 VASCULAR: DP/PT pulses palpable 2/4 with CFT intact, <3seconds to distal digits DERMATOLOGICAL: Full-thickness ulceration to plantar aspect of right heel. Negative probe to bone. Wound measures 5.7 x 5.4 x 0.3 cm. Serous drainage. Malodor. No underlying fluctuance. 60% granular wound bed, granular tissue formation appears hypergranular nature. Remaining 40% is fibrotic. Wound edges are epithelializing. No tunneling or undermining noted. MUSCULOSKELETAL: Mild tenderness with palpation of periwound area to right plantar heel NEUROLOGICAL: Neurological sensation to the affected foot and ankle is present through L4-S1 dermatomes with no hyper/hypoesthesias, negative Tinel or Valleix's sign IMAGING: Three-view x-rays of right foot taken in the emergency department person interpreted by me which show no cortical erosions or signs of osteomyelitis. Infracalcaneal and retrocalcaneal bone spurring. Arterial calcifications visualized. Soft tissue defect plantar aspect of right heel consistent with clinical presentation of wound. No subcutaneous emphysema noted. 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 Concern for underlying osteomyelitis. Meets criteria for sepsis -Labs and vitals reviewed -WBC 13.5 -ESR 47 -CRP 6.8 -HR 112 -RR 17 -Tmax 103.1 -Cultures wound cultures pending -Abx linezolid/Zosyn -Diet: N.p.o. at midnight -Plan will be to take patient to operating room tomorrow 06/07/2024 at noon for debridement of right plantar heel wound and possible bone biopsy. Due to hypergranular nature of wound and presentation, concern for osteomyelitis. MRI with contrast will be obtained prior to surgery to assess for any abscess. -Pain Mgmt: Per primary team -Weight bearing: Nonweightbearing to right lower extremity -Dressings: Betadine wet-to-dry dressing applied in the emergency department. Leave intact until surgery tomorrow 06/07/2024. 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
[2024-06-06 19:14] LABS: Procalcitonin 0.14 ng/mL (0-0.5)
[2024-06-06 19:37] LABS: Reflex Lactate Order REFLEX LACTIC ORDERD
[2024-06-06 20:02] VITALS: BP 167/87; PULSE 97; O2SAT 94
[2024-06-06 20:06] VITALS: BP 132/70; PULSE 116; RESP 20; TEMP 38.2; O2SAT 97
[2024-06-06 20:41] LABS: Iron 55 ug/dL (59-158); Percent Saturation 14.1 % (20-50); Total Iron Binding Capacity 389 mcg/dl; Unsaturated Iron Binding 334 ug/dL (112-347); Vitamin B12 867 pg/mL (232-1245)
[2024-06-06 21:00] LABS: Lactic Acid level (Lactate) 3.4 mmol/L (0.5-2.2)
--- NOTE | 2024-06-06 21:30 | P.HP_ITS ---
Providers/Chief Complaint 2 Admitting Physician: Ulices Weems MD Primary Care Provider: Alejandrina Omalley Chief Complaint: possible infection on amputated foot History of Present Illness Zach Crespo is a 54 year old male with a past medical history of diabetes mellitus was recently in the hospital in April 2024 due to diabetic ulcer over the right calcaneum which progressed to wet gangrene. He will underwent incision and debridement of the right foot on May 01, 2024. Wound culture showed MSSA. Patient responded well to the debridement and was discharged with cefdinir and linezolid for 14 days. He continued to follow-up with wound care clinic, most recently on June 03, 2024 where healing was noted to be satisfactory. There was granulation tissue covering approximately 95% of the calcaneal wound and the wound appeared to be quite healthy. He was on wound VAC therapy. Yesterday patient was removing his socks when he accidentally removed the entire wound VAC dressing along with it. Next day he started to feel fever and chills which continued to progress through the day. He also developed worsening pain in the right heel radiating upwards into his leg. He was febrile to 103 Fahrenheit upon arrival into the emergency room. Review of Systems 2 General: Reports: 10 or more systems reviewed and unremarkable except in HPI and below Const: Denies: fever(s), chills or body aches Eyes: Denies: change in vision, blurry vision or photophobia ENMT: Reports: hoarseness; Denies: throat pain, enlarged tonsils, odynophagia or nasal congestion Card: Denies: chest pain, palpitations, irregular heart rhythm, edema, swelling of feet/ankles, lightheadedness, pre-syncope, dyspnea on exertion or orthopnea Resp: Denies: dyspnea, productive cough, non-productive cough, wheezing, stridor, pain on inspiration, change in phlegm color, hemoptysis or chest congestion GI: Denies: abdominal pain, nausea, vomiting, hematemesis, coffee ground emesis, dysphagia, heartburn, diarrhea, constipation, GI cramping, change in stool character, hematochezia or melena : Denies: flank pain, dysuria, urinary frequency, urinary urgency, urinary hesitancy or hematuria Musc: Denies: neck pain, back pain, extremity pain, joint swelling, joint warmth or deformity Neuro: Denies: headache(s), numbness in extremities, weakness in extremities, sensory changes, difficulty walking, frequent falls, dizziness, vertigo, behavioral changes, Slurred speech present or seizure-like activity Psych: Denies: anxiety, depression, suicidal ideation or homicidal ideation Endo: Denies: polyuria, polydipsia, tired all the time, cold intolerance or hot flashes Carlos Eduardo/Lymph: Denies: easy bruising or easy bleeding Medications/Allergies Home Medications Medication Instructions Recorded Confirmed Last Taken Type atorvastatin 40 mg tablet 40 mg PO QPM 01/27/24 06/07/24 1 Day Ago History ~06/06/24 gabapentin 300 mg capsule 600 mg PO BID 01/27/24 06/07/24 1 Day Ago History ~06/06/24 hydrochlorothiazide 25 mg tablet 25 mg PO DAILY 01/27/24 06/07/24 1 Day Ago History ~06/06/24 insulin glargine 100 unit/mL (3 75 unit SUBCUT BID 01/27/24 06/07/24 1 Day Ago History mL) subcutaneous pen (Lantus ~06/06/24 Solostar U-100 Insulin) insulin lispro 100 unit/mL See Rx Instructions .Route .COMPLEX 01/27/24 06/07/24 1 Day Ago History subcutaneous pen (Humalog KwikPen ~06/06/24 (U-100) Insulin) metformin 1,000 mg tablet 1,000 mg PO BID 01/27/24 06/07/24 1 Day Ago History ~06/06/24 rivaroxaban 20 mg tablet (Xarelto) 20 mg PO BEDTIME 01/27/24 06/07/24 1 Day Ago History ~06/06/24 venlafaxine 75 mg capsule,extended 75 mg PO DAILY 01/27/24 06/07/24 1 Day Ago History release 24 hr ~06/06/24 bupropion HCl 150 mg tablet,12 hr 150 mg PO BID 04/05/24 06/07/24 1 Day Ago History sustained-release ~06/06/24 dulaglutide 4.5 mg/0.5 mL 4.5 mg SUBCUT Q7D 04/05/24 06/07/24 1 Day Ago History subcutaneous pen injector ~06/06/24 (Trulicity) metoprolol tartrate 25 mg tablet 25 mg PO BID@0900,2100 #60 tabs 05/03/24 06/07/24 1 Day Ago Rx ~06/06/24 multivitamin 1 tab PO DAILY 06/07/24 06/07/24 1 Day Ago History ~06/06/24 Allergies Allergy/AdvReac Type Severity Reaction Status Date / Time No Known Allergies Allergy Verified 06/06/24 17:27 PFSH Acute 2 PFSH: Medical History Diabetes mellitus, type II, insulin dependent Chronic osteomyelitis of left foot Puncture wound of left foot Non-pressure chronic ulcer of other part of left foot with necrosis of bone Diabetic peripheral neuropathy associated with type 2 diabetes mellitus Cystitis BMI 37.0-37.9, adult Cellulitis of toe of left foot Chronic anticoagulation Xarelto Obstructive sleep apnea treated with bilevel positive airway pressure (BPAP) Settings 07/06 Diabetic neuropathy History of pulmonary embolism 2006, 1st episode, severe; has had recurrent clotting and in on lifelong anticoagulation with xarelto History of DVT (deep vein thrombosis) 2006, 1st onset, has had recurrent blood clots and is now on chronic anticoagulation with xarelto Dyslipidemia Hypertension Surgical History 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, nonhealing Hx of reduction of orbital fracture History of hip surgery bilateral hips at age 12 for what sounds like recurrent dislocation or dysplasia History of carpal tunnel release of both wrists left x 1, right x 1 History of back surgery low back x 2 Family History Mother Colon cancer diagnosis in her early 50s Other Cancer of female organs Diabetes Heart disease Stroke Social History Smoking and tobacco/nicotine status: former use of tobacco/nicotine Alcohol intake: never Substance/Drug Use: former Former substance use details: has used THC for back pain control & after surgeries in past but none now Caregiver/support person: Yes Vitals/I&O/Wt Last Vital Signs Temp 99.8 F H 06/07/24 04:00 Pulse 84 06/07/24 04:47 Resp 16 06/07/24 04:00 BP 131/65 06/07/24 04:00 Pulse Ox 96 06/07/24 04:00 O2 Del Method Room Air 06/07/24 04:00 06/06/24 06/06/24 06/07/24 14:59 22:59 06:59 Intake Total 300 / 300 1050 / 1350 Balance 300 / 300 1050 / 1350 Weight last 48 hrs Weight 142.7 kg Weight 139.979 kg Weight 135.171 kg Physical Exam 2 Narrative: General: No acute distress, AO x3 HEENT: PERRLA, pupils bilaterally equal and reactive, pallors not present Chest: Normal vesicular breath sounds, no added sounds, equal good air entry bilaterally CVS: S1-S2 regular, no murmurs, no tachycardia, no gallops, no rubs Abdomen: Soft, nontender, no organomegaly, bowel sounds present Neuro: No focal deficits, no facial deformity, AO x3, power 5/5 in all limbs Extremities: Right foot calcaneal ulcer with changes of cellulitis. Please see pictures in podiatry note. Data 06/06/24 17:46 06/06/24 17:46 Other Labs: CT/CT lower leg RT w con [id number] IMPRESSION: 1. Plantar dermal skin thickening at the heel with interval healing of plantar dermal ulcer visible on 04/30/2024. No soft tissue gas. No fluid collection. 2. No bone erosion to suggest osteomyelitis. 3. Stable nondisplaced fracture of the 5th proximal phalanx. 4. Incidental findings above. Respiratory viral panel negative for COVID, influenza AMB, RSV, UA unremarkable. Chest x-ray without acute findings CRP 6.8 Micro: Microbiology 06/06/24 17:48 Blood Culture - Preliminary Blood SPECIMEN COLLECTED 06/06/24 17:46 Blood Culture - Preliminary Blood SPECIMEN COLLECTED A&P Assessment and plan (1) Cellulitis of right foot: Patient with recent history as above, currently presenting with fever chills increased pain over his right foot and leg with presence of a calcaneal ulcer. Concern for cellulitis, skin and soft tissue infection as being the cause of his current symptoms. CT of the foot without evidence of osteomyelitis or any drainable abscess. Possibility also for strep versus staph bacteremia given acute onset of symptoms and an otherwise background of improving foot ulcer. Blood cultures taken in the emergency room Start empiric antibiotic coverage with piperacillin/tazobactam and linezolid for treatment. MRI foot ordered per podiatry recommendation to better assess for osteomyelitis. Hold Xarelto as anticipated I&D tomorrow. Wound culture and Gram stain from the OR Continue home medications including gabapentin Pain control with hydrocodone APAP Continue insulin at home dosing DVT prophylaxis: Typically on Xarelto, with aim to resume after OR. Full code Attestations 2 Medical Necessity Statement*: Greater than 2 midnight stay is anticipated for need for IV antibiotics, possible incision and debridement of the right foot. Coding Level of Care Code Acute Code for Chg Fwd High MDM includes number and complexity of problems actively addressed during encounter, amount and/or complexity of data reviewed/ordered and described risk of complication, morbidity or mortality of management as documented Diagnoses Cellulitis of right foot L03.115
[2024-06-06 22:00] VITALS: PULSE 100
[2024-06-06] MEDS: pantoprazole 40 mg SDV IVP (22:22)
[2024-06-06] MEDS: heparin 5,000 unit/mL INJ 1 mL 5000 UNIT SUBCUT (22:22)
[2024-06-06] MEDS: sodium chloride 0.9% 1,000 ML 999 ML IV (22:22)
[2024-06-06] MEDS: metoprolol tartrate 25 mg Tablet PO (22:22)
[2024-06-06] MEDS: piperacillin-tazobactam 3.375 GM in sodium chloride 0.9% (plus) 50 ML IV (23:23)
[2024-06-06 23:37] LABS: MRSA PCR OZH (swab) NOT DETECTED (Negative)
[2024-06-07] VITALS (10 sets, daily range): BP systolic 105–189; BP diastolic 56–74; PULSE 76–97; RESP 16–20; TEMP 36.7–39.4; O2SAT 90–97
[2024-06-07] MEDS: HYDROcodone-acetaminophen 5-325 mg Tablet 1 TAB PO ×3 (01:31→20:30)
[2024-06-07] MEDS: acetaminophen 325 mg Tablet 650 MG PO ×2 (04:20→21:32)
[2024-06-07 06:12] LABS: Basophils % 0.4 %; Eosinophils # 0.1 10^3/uL (0.0-0.8); Eosinophils % 0.7 %; Hematocrit 33.8 % (37-53); Lymphocytes # 0.7 10^3/uL (0.8-4.8); Lymphocytes % 8.9 %; Mean Corpuscular HGB Conc 31.4 g/dL (30-55); Mean Corpuscular Hemoglobin 27.1 pg (27-33); Mean Corpuscular Volume 86.4 fl (82-101); Monocytes # 0.7 10^3/uL (0.2-0.9); Monocytes % 8.7 %; Neutrophils % 80.8 %; Nucleated Red Blood Cells % 0 %; Platelet Count 150 10^3/cmm (157-399); Red Blood Count 3.91 10^6/uL (3.85-5.65); Red Cell Distribution Width 16.1 % (12.1-15.1); White Blood Count 7.43 10^3/uL (3.29-11.43)
[2024-06-07 06:28] LABS: Glucose Point of Care 185 mg/dL (70-110)
--- NOTE | 2024-06-07 06:31 | MR_ITS ---
WS: [id number] MRI RIGHT FOOT WITH AND WITHOUT CONTRAST. COMPARISON: CT lower extremity 06/06/2024, foot radiograph 06/06/2024 Multiplanar, multisequence imaging is performed with and without contrast. MultiHance 20 mL. History: Calcaneal ulcer. Evaluate for osteomyelitis. Study is compromised by motion artifact. Large area of soft tissue thickening with mild edema centered along the plantar surface of the calcan eus over a width of at least 5 cm. There is dermal thickening up to 0.6 cm. The edema does not extend through the entire plantar soft tissues to the calcaneus. There is no enhancement of the calcaneus o r osteomyelitis. There is mild enhancement of the very superficial soft tissues over the calcaneus, g reatest along the medial plantar surface. The enhancement extends over a depth of 1.2 cm with the wid th estimated at 3.7 cm. There is no focal fluid collection. No abscess. The adjacent Achilles tendon is normal. Plantar fascia is normal. The extensor and flexor tendons are negative as visualized. No fractures. Ligaments are poorly visual ized due to the motion artifact. There is no joint effusion. MR/MR foot RT wo/w con [id number] IMPRESSION: 1. Focal plantar cellulitis involving the medial calcaneal soft tissues. There is no abscess. 2. No calcaneal osteomyelitis.
[2024-06-07 06:41] LABS: Chol HDL Ratio 4.42 mg/dL (1.0-5.00); Cholesterol 106 mg/dL (0-200); HDL Cholesterol 24 mg/dL (60-100); LDL Cholesterol Calculated 60 mg/dL (50-129); Triglycerides 108 mg/dL (0-150)
[2024-06-07 06:42] LABS: Alanine Aminotransferase 22 U/L (0-41); Albumin Level 3.4 g/dL (3.5-5.2); Alkaline Phosphatase 69 U/L (40-130); Anion Gap 12.9 (5-19); Aspartate Amino Transferase 18 U/L (0-40); Blood Urea Nitrogen 16 mg/dL (6-20); Calcium 8.1 mg/dL (8.5-10.5); Carbon Dioxide 25 mmol/L (22-29); Chloride 104 mmol/L (98-107); Creatinine Clr Calc Pharmacy 105.9074; Globulin 2.6 g/dL (1.3-4.6); Glomerular Filtration Rate 63.1 mL/min (90-130); Glucose 190 mg/dL (65-115); Magnesium 1.6 mg/dL (1.7-2.3); Osmolality Calculated 292 mOsm/kg (285-295); Potassium 3.9 mmol/L (3.5-5.1); Sodium 138 mmol/L (136-145); Total Bilirubin 0.5 mg/dL (0.15-1.2)
[2024-06-07 06:55] LABS: Folate Level 13.6 ng/mL (4.5-32.2)
--- NOTE | 2024-06-07 07:36 | PM.PN ---
Subjective Subjective: Patient seen at bedside this morning. Resting comfortably. No overnight events. Plan for OR today at noon. Patient is NPO. MRI pending. Vitals/I&O/Wt Last Vital Signs Temp 99.8 F H 06/07/24 04:00 Pulse 84 06/07/24 04:47 Resp 16 06/07/24 04:00 BP 131/65 06/07/24 04:00 Pulse Ox 96 06/07/24 04:00 O2 Del Method Room Air 06/07/24 04:00 06/06/24 06/07/24 06/07/24 22:59 06:59 14:59 Intake Total 300 / 300 1050 / 1350 Balance 300 / 300 1050 / 1350 Weight last 48 hrs Weight 314 lb 9.6 oz Weight 308 lb 9.6 oz Weight 298 lb Physical Exam Narrative: BELOW IS A FOCUSED LOWER EXTREMITY EXAM GENERAL: A&O x 3 VASCULAR: DP/PT pulses palpable 2/4 with CFT intact, <3seconds to distal digits DERMATOLOGICAL: Full-thickness ulceration to plantar aspect of right heel. Negative probe to bone. Wound measures 5.7 x 5.4 x 0.3 cm. Serous drainage. Malodor. No underlying fluctuance. 60% granular wound bed, granular tissue formation appears hypergranular nature. Remaining 40% is fibrotic. Wound edges are epithelializing. No tunneling or undermining noted. MUSCULOSKELETAL: Mild tenderness with palpation of periwound area to right plantar heel NEUROLOGICAL: Neurological sensation to the affected foot and ankle is present through L4-S1 dermatomes with no hyper/hypoesthesias, negative Tinel or Valleix's sign IMAGING: Three-view x-rays of right foot taken in the emergency department person interpreted by me which show no cortical erosions or signs of osteomyelitis. Infracalcaneal and retrocalcaneal bone spurring. Arterial calcifications visualized. Soft tissue defect plantar aspect of right heel consistent with clinical presentation of wound. No subcutaneous emphysema noted. 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 Concern for underlying osteomyelitis. Meets criteria for sepsis -Labs and vitals reviewed -WBC 13.5--> 7.4 -ESR 47 -CRP 6.8 -HR 112 -RR 17 -Temp 99.8 -Cultures wound cultures pending -Abx linezolid/Zosyn -Diet: N.p.o. -Plan will be to take patient to operating room today 06/07/2024 at noon for debridement of right plantar heel wound and possible bone biopsy. Due to hypergranular nature of wound and presentation, concern for osteomyelitis. MRI with contrast will be obtained prior to surgery to assess for any abscess. -Pain Mgmt: Per primary team -Weight bearing: Nonweightbearing to right lower extremity -Dressings: Betadine wet-to-dry dressing applied in the emergency department. Leave intact until surgery today 06/07/2024. 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
[2024-06-07] MEDS: gabapentin 300 mg Capsule 600 MG PO ×2 (08:53→17:27)
[2024-06-07] MEDS: buPROPion SR (12 HR) 150 mg Tablet PO ×2 (08:53→17:27)
[2024-06-07] MEDS: metoprolol tartrate 25 mg Tablet PO ×2 (08:53→20:29)
[2024-06-07] MEDS: linezolid 600 mg Tablet PO ×2 (08:53→20:30)
[2024-06-07] MEDS: venlafaxine ER (24HR) 75 mg Capsule PO (08:53)
[2024-06-07] MEDS: insulin glargine 100 units/1 mL 75 UNIT SUBCUT (08:54)
[2024-06-07] MEDS: piperacillin-tazobactam 3.375 GM in sodium chloride 0.9% (plus) 50 ML IV ×2 (08:55→20:30)
[2024-06-07] MEDS: gadobenate dimeglumine 20 mL vial IV (10:48)
--- NOTE | 2024-06-07 10:50 | PC.CHAP ---
Pastoral Care Encounter/Spiritual Assessment Type of Contact [] Declined residential roofer helper visit [] Patient/Family/Request visit [] Outpatient visit [] Follow-up visit [] Physician referral [] Code/Alert [x] Routine visit [] Staff referral [] Actively dying [] Patient sleeping [] Family support [] [] Out of room [] Palliative care [] [] Receiving care in room [] Pre-surgical visit [] Trauma [] Long length of stay [] ICU visit [] Other: Relational/Emotional Strength [] Patient feels connected with others/family/visitors/staff [] Distress [] Loneliness/isolation [] Abandonment Spirituality of Patient [x] Person of Rita [] Attends Holiness of their Rita [x] Believes in Prayer [] Reads Bible or Zoroastrian materials [] There are Spiritual issues to be addressed 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 Interventions [x] Prayer [x] Active listening [] Non-anxious presence [] Spiritual/emotional support [] Crisis/trauma care [] Spiritual counseling [] Bereavement support [] Provided bereavement packet [x] Provided Bible/devotional materials [] Provided toy/stuffed animal, coloring book to patient or family member [] Provided Communion [] Anointing/Barto [] Salvation [x] Completed spiritual assessment [] Other: Impact on Illness or Injury [] Angry [] Fearful [] Anxious [] Often cries [] Exhaustion [] Unable to work [] Unable to attend tenriism [] Unable to walk/stand [] Unable to read [] Unable to drive [] Unable to eat/drink [] Unable to sleep [] Unable to be with family [] Patient intubated [] Other: Summary Time spent with patient 10 min
[2024-06-07 11:30] LABS: Glucose Point of Care 363 mg/dL (70-110)
[2024-06-07] MEDS: insulin lispro 100 unit/1 mL SUBCUT (12:12)
--- NOTE | 2024-06-07 15:21 | P.PN_ITS ---
Subjective 2 Subjective: Patient was seen this morning, denies any fevers, does report feeling unwell, no nausea, no vomiting he does report a history of bilateral PEs and left lower extremity DVT, most recent diagnosis of left lower extremity DVT was over 6 months ago, compliant with Xarelto therapy he has never been told he has peripheral vascular disease, denies any claudication-like symptoms Vitals/I&O/Wt Last Vital Signs Temp 98.0 F 06/07/24 12:00 Pulse 86 06/07/24 12:00 Resp 19 H 06/07/24 12:00 BP 189/73 06/07/24 12:00 Pulse Ox 96 06/07/24 12:00 O2 Del Method Room Air 06/07/24 12:00 06/07/24 06/07/24 06/07/24 06:59 14:59 22:59 Intake Total 1050 / 1350 480 / 480 Balance 1050 / 1350 480 / 480 Weight last 48 hrs Weight 142.7 kg Weight 139.979 kg Weight 135.171 kg Physical Exam 2 Const: COMMON NORMALS: no acute distress and patient oriented x3 Resp: COMMON NORMALS: normal respiratory effort, No retractions, No use of accessory muscles and clear to auscultation bilaterally AUSCULTATION: clear to auscultation bilaterally Cardio: COMMON NORMALS: regular rate, regular rhythm, S1 normal heart sound present and S2 normal heart sound present RATE: regular rate RHYTHM: r egular rhythm HEART SOUNDS: S1 normal heart sound present and S2 normal heart sound present GI: COMMON NORMALS: Normal to inspection, nondistended, normoactive bowel sounds present and non-tender Extremity: COMMON NORMALS: no pedal edema NARRATIVE EXTREMITY EXAM: Left lower extremity TMA Right lower extremity wrapped Neuro: COMMON NORMALS: patient oriented x3 Psych: COMMON NORMALS: mental status grossly normal Data 06/07/24 05:27 06/07/24 05:27 Micro: Microbiology 06/06/24 18:15 Gram Stain - Final Other Source 06/06/24 17:48 Blood Culture - Preliminary Blood SPECIMEN COLLECTED 06/06/24 17:46 Blood Culture - Preliminary Blood SPECIMEN COLLECTED A&P Assessment and plan (1) 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 Plantar dermal skin thickening at the heel with interval healing of plantar dermal ulcer visible on 04/30/2024. No soft tissue gas. No fluid collection. 2. No bone erosion to suggest osteomyelitis. 3. Stable nondisplaced fracture of the 5th proximal phalanx. 4. Incidental findings above. -Left lower extremity TMA Plan -MRI of the foot ordered -Continue Zosyn -Continue Zyvox -Follow blood cultures -Spoke to carolin Schneider to resume Xarelto -N.p.o. midnight, for I&D tomorrow -Follow wound culture Gram stain for more -Continue gabapentin -Continue hydrocodone -Type 2 diabetes mellitus, Lantus 75 units twice daily, insulin sliding scale -His pulmonary embolism, DVT, continue Xarelto -Full code -Xarelto for DVT prophylaxis N.p.o. 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
[2024-06-07] MEDS: flu vacc pf 24-25 (6 mos+) SYRINGE 45 MCG IM (16:02)
[2024-06-07 16:41] LABS: Glucose Point of Care 147 mg/dL (70-110)
[2024-06-07] MEDS: atorvastatin 40 mg Tablet PO (17:27)
[2024-06-07] MEDS: morphine 4 mg/mL SDV 1 mL 2 MG IVP (19:50)
--- NOTE | 2024-06-07 20:25 | PC.NURSE ---
Dr. Bob stated that is it okay for patient to have ordered Xarelto tonight.
[2024-06-07] MEDS: rivaroxaban 10 mg Tablet 20 MG PO (20:29)
[2024-06-07] MEDS: pantoprazole 40 mg SDV IVP (20:30)
[2024-06-07 20:53] LABS: Glucose Point of Care 161 mg/dL (70-110)
[2024-06-07] MEDS: insulin glargine 100 units/1 mL 25 UNIT SUBCUT (21:32)
[2024-06-08] VITALS (11 sets, daily range): BP systolic 96–168; BP diastolic 57–79; PULSE 70–79; RESP 14–19; TEMP 36.3–37.2; O2SAT 94–99; BMI 40.3
[2024-06-08] MEDS: piperacillin-tazobactam 3.375 GM in sodium chloride 0.9% (plus) 50 ML IV (03:42)
[2024-06-08] MEDS: HYDROcodone-acetaminophen 5-325 mg Tablet 1 TAB PO (05:05)
[2024-06-08 05:45] LABS: Basophils % 0.4 %; Eosinophils # 0.2 10^3/uL (0.0-0.8); Eosinophils % 2.3 %; Hematocrit 35.6 % (37-53); Lymphocytes # 1.8 10^3/uL (0.8-4.8); Lymphocytes % 22.5 %; Mean Corpuscular HGB Conc 31.5 g/dL (30-55); Mean Corpuscular Hemoglobin 26.9 pg (27-33); Mean Corpuscular Volume 85.4 fl (82-101); Mean Platelet Volume 10.1 fL (7.4-10.4); Monocytes # 1.4 10^3/uL (0.2-0.9); Monocytes % 16.6 %; Neutrophils # 4.73 10^3/uL (1.8-7.7); Neutrophils % 57.8 %; Nucleated Red Blood Cells % 0 %; Platelet Count 155 10^3/cmm (157-399); Red Blood Count 4.17 10^6/uL (3.85-5.65); White Blood Count 8.18 10^3/uL (3.29-11.43)
--- NOTE | 2024-06-08 06:04 | PC.NURSE ---
Surgery staff member took patient via wheelchair. Patient currently not in room.
[2024-06-08 06:06] LABS: Anion Gap 12.8 (5-19); Blood Urea Nitrogen 11 mg/dL (6-20); Calcium 8.3 mg/dL (8.5-10.5); Carbon Dioxide 26 mmol/L (22-29); Chloride 100 mmol/L (98-107); Creatinine Clr Calc Pharmacy 106.5938; Glomerular Filtration Rate 63.1 mL/min (90-130); Glucose 188 mg/dL (65-115); Osmolality Calculated 284 mOsm/kg (285-295); Potassium 3.8 mmol/L (3.5-5.1); Sodium 135 mmol/L (136-145)
[2024-06-08] MEDS: sodium chloride 0.9% 1,000 ML 30 ML IV (06:29)
--- NOTE | 2024-06-08 06:47 | P.ANESASSM_ITS ---
Pre-Anesthetic Assessment Height/Weight: Height 1.88 m Weight 142.428 kg Temp Pulse Resp BP Pulse Ox O2 Del Method 97.3 F L 73 17 146/79 99 Room Air 06/08/24 06:14 06/08/24 06:14 06/08/24 06:14 06/08/24 06:14 06/08/24 06:14 06/08/24 06:14 Operation Date: 06/08/24 07:00 Proposed Procedures p Right Foot Incision And Debridement(Right) - Phil Bob DPM Familial anesthetic complications: None Was Beta Presley taken within 24 hours: N/A Was Clonidine taken within 24 hours: N/A Last intake: Intake Last Liquid Date 06/08/24 Last Liquid Time 05:00 Last Solid Date 06/07/24 Last Solid Time 22:00 Social No alcohol and No tobacco Exam alert, oriented x 3, clear to auscultation bilaterally and regular rate & rhythm Airway Mallampati: Class II Dentition: partials CV/HEM Deep Vein Thrombosis Metabolic Diabetes Mellitus and Morbid Obesity Anesthetic Plan ASA status: 3 Anesthesia: Choice Risk of > 500 ml blood loss (7ml/kg in children): No Other Pertinent Information States he hasn't taken trulicity since wednesday 05/30 Medications/Allergies Home Medications Medication Instructions Recorded Confirmed Last Taken Type atorvastatin 40 mg tablet 40 mg PO QPM 01/27/24 06/07/24 1 Day Ago History ~06/06/24 gabapentin 300 mg capsule 600 mg PO BID 01/27/24 06/07/24 1 Day Ago History ~06/06/24 hydrochlorothiazide 25 mg tablet 25 mg PO DAILY 01/27/24 06/07/24 1 Day Ago History ~06/06/24 insulin glargine 100 unit/mL (3 75 unit SUBCUT BID 01/27/24 06/07/24 1 Day Ago History mL) subcutaneous pen (Lantus ~06/06/24 Solostar U-100 Insulin) insulin lispro 100 unit/mL See Rx Instructions .Route .COMPLEX 01/27/24 06/07/24 1 Day Ago History subcutaneous pen (Humalog KwikPen ~06/06/24 (U-100) Insulin) metformin 1,000 mg tablet 1,000 mg PO BID 01/27/24 06/07/24 1 Day Ago History ~06/06/24 rivaroxaban 20 mg tablet (Xarelto) 20 mg PO BEDTIME 01/27/24 06/07/24 1 Day Ago History ~06/06/24 venlafaxine 75 mg capsule,extended 75 mg PO DAILY 01/27/24 06/07/24 1 Day Ago History release 24 hr ~06/06/24 bupropion HCl 150 mg tablet,12 hr 150 mg PO BID 04/05/24 06/07/24 1 Day Ago History sustained-release ~06/06/24 dulaglutide 4.5 mg/0.5 mL 4.5 mg SUBCUT Q7D 04/05/24 06/07/24 1 Day Ago History subcutaneous pen injector ~06/06/24 ([facility] metoprolol tartrate 25 mg tablet 25 mg PO BID@0900,2100 #60 tabs 05/03/24 06/07/24 1 Day Ago Rx ~06/06/24 multivitamin 1 tab PO DAILY 06/07/24 06/07/24 1 Day Ago History ~06/06/24 Allergies Allergy/AdvReac Type Severity Reaction Status Date / Time No Known Allergies Allergy Verified 06/06/24 17:27 Current Medications Generic Name Dose Route Start Last Admin Trade Name Freq PRN Reason Stop Dose Admin Acetaminophen 650 mg 06/06/24 20:06 06/07/24 21:32 Acetaminophen 325 Mg Tablet PO 650 mg Q6H PRN Administration Mild/Mod Pain Or Temp >/= 101 Hydrocodone Bitart/Acetaminophen 1 tab 06/07/24 19:42 06/08/24 05:05 Hydrocodone-Acetaminophen 5-325 Mg Tablet PO 1 tab Q4H PRN Administration pain Atorvastatin Calcium 40 mg 06/07/24 18:00 06/07/24 17:27 Atorvastatin 40 Mg Tablet PO 40 mg QPM MEME Administration Bupropion HCl 150 mg 06/07/24 09:00 06/07/24 17:27 Bupropion Sr (12 Hr) 150 Mg Tablet PO 150 mg BID MEME Administration Gabapentin 600 mg 06/07/24 09:00 06/07/24 17:27 Gabapentin 300 Mg Capsule PO 600 mg BID MEME Administration Piperacillin Sod/Tazobactam 50 mls @ 12.5 mls/hr 06/06/24 20:15 06/08/24 03:42 Sod 3.375 gm/ Sodium Chloride IV 12.5 mls/hr Q8H MEME Administration Sodium Chloride 1,000 mls @ 30 mls/hr 06/08/24 06:15 06/08/24 06:29 Sodium Chloride 0.9% IV 06/09/24 06:14 30 mls/hr .Q24H MEME Administration Insulin Glargine 50 unit 06/07/24 21:00 06/07/24 19:58 Insulin Glargine 100 Units/1 Ml SUBCUT Not Given Q12H MEME Insulin Human Lispro 0 unit 06/07/24 08:00 06/07/24 21:04 Insulin Lispro 100 Unit/1 Ml SUBCUT Not Given WM&BEDTIME MEME Protocol Linezolid 600 mg 06/07/24 08:00 06/07/24 20:30 Linezolid 600 Mg Tablet PO 600 mg Q12H MEME Administration Protocol Metoprolol Tartrate 25 mg 06/06/24 21:00 06/07/24 20:29 Metoprolol Tartrate 25 Mg Tablet PO 25 mg BID@0900,2100 MEME Administration Morphine Sulfate 2 mg 06/06/24 20:06 06/07/24 19:50 Morphine 4 Mg/Ml Sdv 1 Ml IVP 2 mg Q4H PRN Administration SEVERE PAIN Pantoprazole Sodium 40 mg 06/06/24 20:06 06/07/24 20:30 Pantoprazole 40 Mg Sdv IVP 40 mg Q24H MEME Administration Rivaroxaban 20 mg 06/07/24 21:00 06/07/24 20:29 Rivaroxaban 10 Mg Tablet PO 20 mg BEDTIME MEME Administration Venlafaxine HCl 75 mg 06/07/24 09:00 06/07/24 08:53 Venlafaxine Er (24hr) 75 Mg Capsule PO 75 mg DAILY MEME Administration PFSH Anesthesia Medical History Diabetes mellitus, type II, insulin dependent Chronic osteomyelitis of left foot Puncture wound of left foot Non-pressure chronic ulcer of other part of left foot with necrosis of bone Diabetic peripheral neuropathy associated with type 2 diabetes mellitus Cystitis BMI 37.0-37.9, adult Cellulitis of toe of left foot Chronic anticoagulation Xarelto Obstructive sleep apnea treated with bilevel positive airway pressure (BPAP) Settings 07/06 Diabetic neuropathy History of pulmonary embolism 2006, 1st episode, severe; has had recurrent clotting and in on lifelong anticoagulation with xarelto History of DVT (deep vein thrombosis) 2007, 1st onset, has had recurrent blood clots and is now on chronic anticoagulation with xarelto Dyslipidemia Hypertension Surgical History 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, nonhealing Hx of reduction of orbital fracture History of hip surgery bilateral hips at age 12 for what sounds like recurrent dislocation or dysplasia History of carpal tunnel release of both wrists left x 1, right x 1 History of back surgery low back x 2 Family History Mother Colon cancer diagnosis in her early 50s Other Cancer of female organs Diabetes Heart disease Stroke Social History Smoking and tobacco/nicotine status: former use of tobacco/nicotine Alcohol intake: never Substance/Drug Use: former Former substance use details: has used THC for back pain control & after surgeries in past but none now Caregiver/support person: Yes Data Anesthesia 06/08/24 05:37 06/08/24 05:37 Short CBC 06/06/24 06/07/24 06/08/24 Range/Units 17:46 05:27 05:37 WBC 13.51 H 7.43 8.18 (3.29-11.43) 10^3/uL Hgb 11.80 10.60 L 11.20 L (11.27-16.99) g/dL Hct 36.9 L 33.8 L 35.6 L (37-53) % MCV 82.9 86.4 85.4 (82-101) fl Plt Count 225 150 L D 155 L (157-399) 10^3/cmm Neut % (Auto) 78.7 80.8 57.8 % Neut # (Auto) 10.63 H 6.00 4.73 (1.8-7.7) 10^3/uL BMP 06/06/24 06/07/24 06/08/24 17:46 05:27 05:37 Sodium 136 138 135 L Potassium 4.7 3.9 3.8 Chloride 101 104 100 Carbon Dioxide 23 25 26 BUN 15 16 11 Creatinine 1.1 1.2 1.2 Glucose 250 H 190 H 188 H Calcium 8.9 8.1 L 8.3 L Liver Function 06/06/24 06/07/24 Range/Units 17:46 05:27 Total Bilirubin 0.4 0.5 (0.15-1.2) mg/dL AST 21 18 (0-40) U/L ALT 28 22 (0-41) U/L Alkaline Phosphatase 83 69 (40-130) U/L Albumin 3.9 3.4 L (3.5-5.2) g/dL Urine 06/06/24 Range/Units 18:15 Urine Color Yellow (Yellow) Urine Appearance Clear (CLEAR) Urine pH 8.0 A (5-7) Ur Specific [place] 1.018 (1.005-1.030) Urine Protein Negative (Negative) Urine Glucose (UA) Trace H (Normal) Urine Ketones Negative (Negative) Urine Nitrate Negative (Negative) Urine Bilirubin Negative (Negative) Ur Leukocyte Esterase Negative (Negative) Urine RBC 0-2 (0-2) /hpf Urine WBC 0-5 (0-5) /hpf COVID Results 06/06/24 18:00 Coronavirus (PCR) Negative Coags 06/06/24 17:46 ESR 47 H C-Reactive Protein 6.8 H Microbiology 06/06/24 17:48 Blood Culture - Preliminary Blood NEGATIVE TO DATE 06/06/24 17:46 Blood Culture - Preliminary Blood NEGATIVE TO DATE 06/06/24 18:15 Gram Stain - Final Other Source Cardiac Studies: 2 No Data to Display
[2024-06-08] MEDS: BUPivacaine 0.5% INJ 30 mL INJECTION (07:27)
--- NOTE | 2024-06-08 07:30 | P.OP_ITS ---
Operative Report Date of procedure: June 08, 2024 Pre-op diagnosis: Necrotic diabetic ulcer plantar right heel with fat layer exposed Post-op diagnosis: Same Post-op findings: Healthy bleeding wound bed Procedure done: Excisional debridement right heel down to the level of deep fascia CPT 85522 Surgeon: Phil Bob DPM Behavioral Intervention Specialist: Bogdan Diane Estimated blood loss: 10 cc 5 minutes Complications: None Findings: See above Procedure: The patient presents with a foot infection involving right plantar calcaneus, characterized by erythema, swelling, and drainage. The infection is complicated by underlying conditions, including diabetes, which have contributed to the progression of the infection despite conservative management. Preoperative imaging and laboratory results indicate soft tissue infection, necessitating surgical intervention. The planned procedure is intended to address the infection, debride necrotic tissue, and, if necessary, assess the viability of surrounding structures to prevent further complications. The patient has been NPO since midnight. The history has been reviewed and the history and physical is current. The signed consent was confirmed and placed in the patient chart. Patient imaging has been reviewed and is consistent with the diagnosis. Under mild sedation, the patient was brought into the operating room and placed on the table in the supine position. Patient is receiving antibiotics around the clock on the floor, Therefore, additional antibiotic prophylaxix was not administered. MAC sedation was then performed by the anesthesiateam. A local field block was performed using 0.5% Marcaine plain. A pneumatic tourniquet was then placed about the right ankle. The operative extremity was then prepped and draped in the usual fashion. After prep, the following procedu re was then performed. Attention was directed to the plantar aspect of the right heel where a full- thickness ulceration measuring 5.7 x 5.4 x 0.3 cm was noted. A curette was used to perform excisional debridement down to the level of deep fascia across the entire base of the wound. Any nonviable lysed tissue was removed from the wound base. Tourniquet was let down and good hyperemic response was noted to right foot. Hemostasis was achieved via electrocautery and Surgicel. Postdebridement measurements were noted to be 5.9 x 5.5 x 0.4 cm. Surgicel was left on wound bed and covered with Xeroform, 4 x 4 gauze, ABD pads, Kerlix, Akil wrap The patient tolerated the procedure and anesthesia well and without complication. The patient was transported from the operating room to the recovery room with vital signs stable and vascular status intact to all digits of the right foot. The patient was instructed to remain nonweightbearing to the operative extremity, to keep surgical dressing clean, dry and intact. The patient will be transferred back to the floor once anesthesia criteria is met. I will continue to round on and follow the patient in the inpatient setting and provide recommendations to stabilize the patient for discharge. Based on intraoperative findings patient will be okay to discharge home on oral antibiotics
--- NOTE | 2024-06-08 07:45 | ANE.PACU2 ---
Inpatient post-anesthesia follow up: Airway intact: Yes Vital signs: Temperature 97.8 F Pulse Rate 71 Respiratory Rate 18 Blood Pressure 116/69 Pulse Oximetry 96 Oxygen Delivery Me thod Room Air Oxygen Flow Rate Fraction of Inspir ed Oxygen Hydration adequate: Yes Nausea and vomiting: No Pain level: 1 Mental status: Baseline
[2024-06-08] MEDS: gabapentin 300 mg Capsule 600 MG PO (08:47)
[2024-06-08] MEDS: metoprolol tartrate 25 mg Tablet PO (08:47)
[2024-06-08] MEDS: venlafaxine ER (24HR) 75 mg Capsule PO (08:47)
[2024-06-08] MEDS: buPROPion SR (12 HR) 150 mg Tablet PO (08:47)
[2024-06-08] MEDS: insulin glargine 100 units/1 mL 50 UNIT SUBCUT (08:48)
[2024-06-08 11:42] LABS: Glucose Point of Care 212 mg/dL (70-110)
--- NOTE | 2024-06-08 12:01 | P.DS_ITS ---
Discharge Providers Date of Admission: 06/06/24 18:28 Date of Discharge: June 08, 2024 Attending Provider at Admission: Ulices Weems MD Attending Provider at Discharge: Abdoulaye Barone MD Primary Care Provider: Alejandrina Omalley Diagnoses at Discharge Discharge Diagnosis (1) Neuropathic ulcer of right heel with necrosis of muscle: Status: Acute (2) Cellulitis of right foot: Status: Acute (3) Diabetes mellitus, type II, insulin dependent: Status: Acute Reason for Visit Reason for Visit: possible infection on amputated foot Hospital Course Hospital Course Zach Crespo is a 54 year old male with a past medical history of diabetes mellitus was recently in the hospital in April 2024 due to diabetic ulcer over the right calcaneum which progressed to wet gangrene. He will underwent incision and debridement of the right foot on May 01, 2024. Wound culture showed MSSA. Patient responded well to the debridement and was discharged with cefdinir and linezolid for 14 days. He continued to follow-up with wound care clinic, most recently on June 03, 2024 where healing was noted to be satisfactory. There was granulation tissue covering approximately 95% of the calcaneal wound and the wound appeared to be quite healthy. He was on wound VAC therapy. Yesterday patient was removing his socks when he accidentally removed the entire wound VAC dressing along with it. Next day he started to feel fever and chills which continued to progress through the day. He also developed worsening pain in the right heel radiating upwards into his leg. He was febrile to 103 Fahrenheit upon arrival into the emergency room. Cellulitis of the right foot - ESR 47 -CT right foot CT/CT lower leg RT w con [id number] IMPRESSION: 1. Plantar dermal skin thickening at the heel with interval healing of plantar dermal ulcer visible on 04/30/2024. No soft tissue gas. No fluid collection. 2. No bone erosion to suggest osteomyelitis. 3. Stable nondisplaced fracture of the 5th proximal phalanx. 4. Incidental findings above. Foot MRI MR/MR foot RT wo/w con [id number] IMPRESSION: 1. Focal plantar cellulitis involving the medial calcaneal soft tissues. There is no abscess. 2. No calcaneal osteomyelitis. -Patient was admitted as inpatient, received IV antibiotic therapy, podiatry was consulted Patient is s/pExcisional debridement right heel down to the level of deep fascia -Tolerated procedure well -Will be discharged on 7 days of p.o. Augmentin and doxycycline -Follow-up with Dr. Bob tomorrow for first dressing change -He should be toe-touch for transfers -Wound care orders, daily betadine wet-to-dry starting 06/10, first dressing change tomorrow in clinic with Dr. Bob Physical Exam Const: COMMON NORMALS: no acute distress and patient oriented x3 Resp: COMMON NORMALS: normal respiratory effort, No retractions, No use of accessory muscles and clear to auscultation bilaterally AUSCULTATION: clear to auscultation bilaterally Cardio: COMMON NORMALS: regular rate, regular rhythm, S1 normal heart sound present and S2 normal heart sound present RATE: regular rate RHYTHM: regular rhythm HEART SOUNDS: S1 normal heart sound present and S2 normal heart sound present GI: COMMON NORMALS: Normal to inspection, nondistended, normoactive bowel sounds present and non-tender Extremity: COMMON NORMALS: no calf tenderness and no pedal edema Neuro: COMMON NORMALS: patient oriented x3 Psych: COMMON NORMALS: mental status grossly normal Discharge Data Studies Completed and Pending Completed Studies During Hospitalization Category Date Time Status CT lower leg RT w con [id number] Stat Cat Scan 06/06/24 18:24 Completed XR chest 1V portable [id number] Stat Exams 06/06/24 17:33 Completed XR foot RT min 3V* [id number] Stat Exams 06/06/24 17:37 Completed MR foot RT wo/w con [id number] Routine MRI 06/07/24 06:31 Completed Pending at discharge Category Date Time Status Basic Metabolic Panel AM LABS Lab 06/09/24 04:00 Ordered Basic Metabolic Panel AM LABS Lab 06/10/24 04:00 Ordered Blood Culture Stat Lab 06/06/24 17:48 Results Complete Blood Count w/Auto AM LABS Lab 06/09/24 04:00 Ordered Complete Blood Count w/Auto AM LABS Lab 06/10/24 04:00 Ordered Wound Culture and Gram Stain Stat Lab 06/06/24 18:15 Results Radiology Impressions Chest X-Ray 06/06/24 17:33 IMPRESSION: No acute findings. Foot X-Ray 06/06/24 17:37 IMPRESSION: 1. No sign of osteomyelitis. 2. Plantar dermal ulcer at the heel. Lower Extremity CT 06/06/24 18:24 IMPRESSION: 1. Plantar dermal skin thickening at the heel with interval healing of plantar dermal ulcer visible on 04/30/2024. No soft tissue gas. No fluid collection. 2. No bone erosion to suggest osteomyelitis. 3. Stable nondisplaced fracture of the 5th proximal phalanx. 4. Incidental findings above. Foot MRI 06/07/24 06:31 IMPRESSION: 1. Focal plantar cellulitis involving the medial calcaneal soft tissues. There is no abscess. 2. No calcaneal osteomyelitis. Laboratory Results WBC 8.18 10^3/uL (3.29-11.43) 06/08/24 05:37 RBC 4.17 10^6/uL (3.85-5.65) 06/08/24 05:37 Hgb 11.20 g/dL (11.27-16.99) L 06/08/24 05:37 Hct 35.6 % (37-53) L 06/08/24 05:37 MCV 85.4 fl (82-101) 06/08/24 05:37 MCH 26.9 pg (27-33) L 06/08/24 05:37 MCHC 31.5 g/dL (30-55) 06/08/24 05:37 RDW 16.0 % (12.1-15.1) H 06/08/24 05:37 Plt Count 155 10^3/cmm (157-399) L 06/08/24 05:37 MPV 10.1 fL (7.4-10.4) 06/08/24 05:37 Neut % (Auto) 57.8 % 06/08/24 05:37 Lymph % (Auto) 22.5 % 06/08/24 05:37 [place] % (Auto) 16.6 % 06/08/24 05:37 Eos % (Auto) 2.3 % 06/08/24 05:37 Baso % (Auto) 0.4 % 06/08/24 05:37 Neut # (Auto) 4.73 10^3/uL (1.8-7.7) 06/08/24 05:37 Lymph # (Auto) 1.8 10^3/uL (0.8-4.8) 06/08/24 05:37 [place] # (Auto) 1.4 10^3/uL (0.2-0.9) H 06/08/24 05:37 Eos # (Auto) 0.2 10^3/uL (0.0-0.8) 06/08/24 05:37 Baso # (Auto) 0.0 10^3/uL (0.0-0.1) 06/08/24 05:37 Nucleated RBC % (auto) 0 % 06/08/24 05:37 Nucleated RBCs # 0.0 /100WBC 06/08/24 05:37 ESR 47 mm/hr (0-10) H 06/06/24 17:46 Sodium 135 mmol/L (136-145) L 06/08/24 05:37 Potassium 3.8 mmol/L (3.5-5.1) 06/08/24 05:37 Chloride 100 mmol/L (98-107) 06/08/24 05:37 Carbon Dioxide 26 mmol/L (22-29) 06/08/24 05:37 Anion Gap 12.8 (5-19) 06/08/24 05:37 BUN 11 mg/dL (6-20) 06/08/24 05:37 Creatinine 1.2 mg/dL (0.7-1.2) 06/08/24 05:37 GFR Calculation 63.1 mL/min (90-130) L 06/08/24 05:37 Glucose 188 mg/dL (65-115) H 06/08/24 05:37 POC Glucose 212 mg/dL (70-110) H 06/08/24 11:39 Calculated Osmolality 284 mOsm/kg (285-295) L 06/08/24 05:37 Lactic Acid 3.0 mmol/L (0.5-2.2) H 06/06/24 17:46 Lactic Acid (Sepsis) 3.4 mmol/L (0.5-2.2) H 06/06/24 20:31 Calcium 8.3 mg/dL (8.5-10.5) L 06/08/24 05:37 Phosphorus 3.0 mg/dL (2.5-4.5) 06/07/24 05:27 Magnesium 1.6 mg/dL (1.7-2.3) L 06/07/24 05:27 Iron 55 ug/dL (59-158) L 06/06/24 17:46 TIBC 389 mcg/dl 06/06/24 17:46 % Saturation 14.1 % (20-50) L 06/06/24 17:46 Unsat Iron Binding 334 ug/dL (112-347) 06/06/24 17:46 Total Bilirubin 0.5 mg/dL (0.15-1.2) 06/07/24 05:27 AST 18 U/L (0-40) 06/07/24 05:27 ALT 22 U/L (0-41) 06/07/24 05:27 Alkaline Phosphatase 69 U/L (40-130) 06/07/24 05:27 C-Reactive Protein 6.8 mg/L (0.0-4.9) H 06/06/24 17:46 Total Protein 6.0 g/dL (6.6-8.7) L 06/07/24 05:27 Albumin 3.4 g/dL (3.5-5.2) L 06/07/24 05:27 Globulin 2.6 g/dL (1.3-4.6) 06/07/24 05:27 Triglycerides 108 mg/dL (0-150) 06/07/24 05:27 Cholesterol 106 mg/dL (0-200) 06/07/24 05:27 LDL Cholesterol, Calc 60 mg/dL (50-129) 06/07/24 05:27 HDL Cholesterol 24 mg/dL (60-100) L 06/07/24 05:27 LDL/HDL Ratio 2.50 RATIO (0.00-3.22) 06/07/24 05:27 Cholesterol/HDL Ratio 4.42 mg/dL (1.0-5.00) 06/07/24 05:27 Vitamin B12 867 pg/mL (232-1245) 06/06/24 17:46 Folate 13.6 ng/mL (4.5-32.2) 06/07/24 05:27 Procalcitonin 0.14 ng/mL (0-0.5) 06/06/24 17:46 TSH 0.70 uIU/mL (0.27-4.20) 06/06/24 17:46 Urine Color Yellow (Yellow) 06/06/24 18:15 Urine Appearance Clear (CLEAR) 06/06/24 18:15 Urine pH 8.0 (5-7) A 06/06/24 18:15 Ur Specific [place] 1.018 (1.005-1.030) 06/06/24 18:15 Urine Protein Negative (Negative) 06/06/24 18:15 Urine Glucose (UA) Trace (Normal) H 06/06/24 18:15 Urine Ketones Negative (Negative) 06/06/24 18:15 Urine Blood Negative (Negative) 06/06/24 18:15 Urine Nitrate Negative (Negative) 06/06/24 18:15 Urine Bilirubin Negative (Negative) 06/06/24 18:15 Urine Urobilinogen 1.0 mg/dL (Negative) 06/06/24 18:15 Ur Leukocyte Esterase Negative (Negative) 06/06/24 18:15 Urine RBC 0-2 /hpf (0-2) 06/06/24 18:15 Urine WBC 0-5 /hpf (0-5) 06/06/24 18:15 Ur Squamous Epith Cells 0-5 /hpf (0-5) 06/06/24 18:15 Amorphous Sediment Not Reportable 06/06/24 18:15 Urine Bacteria None seen /hpf (NONE) 06/06/24 18:15 Hyaline Casts 1.65 /lpf 06/06/24 18:15 Nasal MRSA (PCR) Not detected (Negative) 06/06/24 22:00 Coronavirus (PCR) Negative (Negative) 06/06/24 18:00 Influenza A (PCR) Negative (Negative) 06/06/24 18:00 Influenza Type B (PCR) Negative (Negative) 06/06/24 18:00 RSV (PCR) Negative (Negative) 06/06/24 18:00 Vitals Last Vital Signs Temp 97.7 F 06/08/24 10:00 Pulse 71 06/08/24 10:00 Resp 18 06/08/24 10:00 BP 120/71 06/08/24 10:00 Pulse Ox 94 06/08/24 10:00 O2 Del Method Room Air 06/08/24 10:00 Discharge Plan Discharge Patient Disposition: Home Health Service Condition: Stable Prescriptions: New amoxicillin-pot clavulanate 875-125 mg tablet 1 tab PO BID 7 Days Qty: 14 0RF doxycycline hyclate 100 mg tablet 100 mg PO BID 7 Days Qty: 14 0RF Continued multivitamin Tablet 1 tab PO DAILY atorvastatin 40 mg tablet 40 mg PO QPM venlafaxine 75 mg capsule,extended release 24hr 75 mg PO DAILY metformin 1,000 mg tablet 1,000 mg PO BID gabapentin 300 mg capsule 600 mg PO BID hydrochlorothiazide 25 mg tablet 25 mg PO DAILY insulin lispro [Humalog KwikPen Insulin] 100 unit/mL insulin pen See Rx Instructions .ROUTE .COMPLEX Rx Instructions: INJECT 30 UNITS IN THE AM, 20 UNITS NEEDED AT NOON, AND 30 UNITS IN THE PM. Xarelto 20 mg tablet 20 mg PO BEDTIME Trulicity 4.5 mg/0.5 mL pen injector 4.5 mg SUBCUT Q7D Rx Instructions: Friday bupropion HCl 150 mg tablet sustained-release 12 hr 150 mg PO BID metoprolol tartrate 25 mg Tablet 25 mg PO BID@0900,2100 Qty: 60 0RF Changed insulin glargine [Lantus Solostar U-100 Insulin] 100 unit/mL (3 mL) insulin pen 65 unit SUBCUT BID Qty: 15 0RF Discharge Orders: Discharge Order (Routine); Ordered 06/08/24 Ordered By: Abdoulaye Barone Referrals: [facility] ([facility]) [Outside] Phil Bob DPM [Physician] - 1-3 days Alejandrina Omalley PA-C [Primary Care Provider] - Discharge Diet: Cardiac Discharge Activity: Resume usual activity Patient Instructions: Acute Wound Care (DC), Opioid Safety, Post Anesthesia Care Activity Restrictions/Additional Instructions: - Toe-touch transfer, -Please follow with Dr. Hoskins tomorrow ? Wound care orders, daily betadine wet-to-dry starting 06/10, first dressing change tomorrow in clinic with Dr. 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
== END 2024-06-08 12:51 | disposition home health service (06) | DRG 623 ==
LOC: ER 18:42 → MEDSURG 18:44
PROVIDERS: Podiatrist Foot & Ankle Surgery; Student in an Organized Health Care Education/Training Program; Admitting Provider Student in an Organized Health Care Education/Training Program; Emergency Provider Emergency Medicine; PCP Physician Assistant; Visit Provider Family Medicine
PROC: 0JBQ0ZZ Excision of Right Foot Subcutaneous Tissue and Fascia, Open Approach (ICD-10-PCS; principal; 2024-06-08 07:00)
DX: E11.621 Type 2 diabetes mellitus with foot ulcer (principal); L03.115 Cellulitis of right lower limb; L97.413 Non-pressure chronic ulcer of right heel and midfoot with necrosis of muscle; E11.42 Type 2 diabetes mellitus with diabetic polyneuropathy; I10 Essential (primary) hypertension; E78.5 Hyperlipidemia, unspecified; G47.33 Obstructive sleep apnea (adult) (pediatric); Z79.01 Long term (current) use of anticoagulants; Z86.718 Personal history of other venous thrombosis and embolism; Z86.711 Personal history of pulmonary embolism; Z87.891 Personal history of nicotine dependence; Z89.412 Acquired absence of left great toe; Z79.85 Long-term (current) use of injectable non-insulin antidiabetic drugs; Z79.4 Long term (current) use of insulin; Z79.84 Long term (current) use of oral hypoglycemic drugs
CPT/HCPCS: 0241U; 36415; 36416; 71045; 73630; 73701; 73720; 80048; 80053; 80061; 81001; 82607; 82746; 82962; 83540; 83550; 83605; 83735; 84100; 84145; 84443; 85025; 85651; 86140; 87040; 87070; 87075; 87077; 87186; 87205; 90471; 90686; 94664; 96365; 96372; 96375; 97597; 97598; 99285; A6237; A6250; J1644; J1815; J2020; J2185; J2270; J2470; J2543; J2704; J3010; J3490; J7030

== ENCOUNTER → 2024-06-10 08:09 | Outpatient (BNVA) | payer MEDICARE, SELFPAY | PROVIDERS: PCP Physician Assistant; Visit Provider Podiatrist Foot & Ankle Surgery | DX: E11.42 Type 2 diabetes mellitus with diabetic polyneuropathy (principal); E11.621 Type 2 diabetes mellitus with foot ulcer; L97.413 Non-pressure chronic ulcer of right heel and midfoot with necrosis of muscle | CPT/HCPCS: 99024 ==

== ENCOUNTER → 2024-06-15 11:07 | Outpatient (BNVA) | payer MEDICARE, SELFPAY | PROVIDERS: PCP Physician Assistant; Visit Provider Thoracic Surgery (Cardiothoracic Vascular Surgery) | DX: E11.52 Type 2 diabetes mellitus with diabetic peripheral angiopathy with gangrene (principal); E11.621 Type 2 diabetes mellitus with foot ulcer; L97.411 Non-pressure chronic ulcer of right heel and midfoot limited to breakdown of skin | CPT/HCPCS: 97597; 97605; A6237; A6250 ==

== ENCOUNTER → 2024-06-22 14:31 | Outpatient (BNVA) | payer MEDICARE, SELFPAY | PROVIDERS: PCP Physician Assistant; Visit Provider Thoracic Surgery (Cardiothoracic Vascular Surgery) | DX: E11.52 Type 2 diabetes mellitus with diabetic peripheral angiopathy with gangrene (principal); E11.621 Type 2 diabetes mellitus with foot ulcer; L97.411 Non-pressure chronic ulcer of right heel and midfoot limited to breakdown of skin | CPT/HCPCS: 97597; A6237; A6250 ==

== ENCOUNTER → 2024-06-29 13:00 | Outpatient (BNVA) | payer MEDICARE, SELFPAY | PROVIDERS: PCP Physician Assistant; Visit Provider Thoracic Surgery (Cardiothoracic Vascular Surgery) | DX: E11.52 Type 2 diabetes mellitus with diabetic peripheral angiopathy with gangrene (principal); E11.621 Type 2 diabetes mellitus with foot ulcer; L97.412 Non-pressure chronic ulcer of right heel and midfoot with fat layer exposed | CPT/HCPCS: 97597; 97605; A6237; A6250 ==

== ENCOUNTER → 2024-07-06 11:15 | Outpatient (BNVA) | payer MEDICARE, SELFPAY | PROVIDERS: PCP Physician Assistant; Visit Provider Thoracic Surgery (Cardiothoracic Vascular Surgery) | DX: E11.52 Type 2 diabetes mellitus with diabetic peripheral angiopathy with gangrene (principal); E11.621 Type 2 diabetes mellitus with foot ulcer; L97.411 Non-pressure chronic ulcer of right heel and midfoot limited to breakdown of skin; E11.622 Type 2 diabetes mellitus with other skin ulcer; L97.811 Non-pressure chronic ulcer of other part of right lower leg limited to breakdown of skin | CPT/HCPCS: 97597; A6210; A6252 ==

== ENCOUNTER → 2024-07-13 10:52 | Outpatient (BNVA) | payer MEDICARE, SELFPAY | PROVIDERS: PCP Physician Assistant; Visit Provider Thoracic Surgery (Cardiothoracic Vascular Surgery) | DX: E11.52 Type 2 diabetes mellitus with diabetic peripheral angiopathy with gangrene (principal); E11.621 Type 2 diabetes mellitus with foot ulcer; L97.512 Non-pressure chronic ulcer of other part of right foot with fat layer exposed; E11.622 Type 2 diabetes mellitus with other skin ulcer; L97.811 Non-pressure chronic ulcer of other part of right lower leg limited to breakdown of skin | CPT/HCPCS: 97597; A6212 ==

== ENCOUNTER → 2024-07-22 10:22 | Outpatient (BNVA) | payer MEDICARE, SELFPAY | PROVIDERS: PCP Physician Assistant; Visit Provider Thoracic Surgery (Cardiothoracic Vascular Surgery) | DX: E11.52 Type 2 diabetes mellitus with diabetic peripheral angiopathy with gangrene (principal); E11.621 Type 2 diabetes mellitus with foot ulcer; L97.411 Non-pressure chronic ulcer of right heel and midfoot limited to breakdown of skin | CPT/HCPCS: 97597 ==

== ENCOUNTER → 2024-08-05 10:12 | Outpatient (BNVA) | payer MEDICARE, SELFPAY | PROVIDERS: PCP Physician Assistant | DX: E11.52 Type 2 diabetes mellitus with diabetic peripheral angiopathy with gangrene (principal); E11.621 Type 2 diabetes mellitus with foot ulcer; L97.411 Non-pressure chronic ulcer of right heel and midfoot limited to breakdown of skin | CPT/HCPCS: 97597; A6210 ==

== ENCOUNTER 2024-08-19 03:53 | Observation (INO) | payer MEDICARE, SELFPAY ==
[2024-08-19] VITALS (10 sets, daily range): BP systolic 119–171; BP diastolic 74–91; PULSE 90–110; RESP 17–102; TEMP 36.7–37.3; O2SAT 94–99; BMI 37.8; BMI 39.3
--- NOTE | 2024-08-19 04:11 | CTR_ITS ---
PROCEDURE INFORMATION: Exam: CT Right Upper Extremity With Contrast, Hand Exam date and time: 08/19/2024 4:44 AM Age: 54 years old Clinical indication: Pain; Swelling; Fingers and hand; Right; Finger(s) and hand; Additional info: Right hand infection, possible abscess, tenosynovitis TECHNIQUE: Imaging protocol: Computed tomography of the right upper extremity with contrast. Exam focused on the hand. Radiation optimization: All CT scans at this facility use at least one of these dose optimization techniques: automated exposure control; mA and/or kV adjustment per patient size (includes targeted exams where dose is matched to clinical indication); or iterative reconstruction. Contrast material: OMNI 350; Contrast volume: 100 ml; Contrast route: INTRAVENOUS (IV); COMPARISON: No relevant prior studies available. RADIATION DOSE METRICS: Total DLP (mGy-cm): 293.57 FINDINGS: Bones/joints: No definite bone destruction or fracture. Soft tissues: Soft tissue edema or cellulitis. Soft tissue vascular calcification. Significant limitation of assessment of deep soft tissues and muscular compartment by CT modality. Likely abnormal attenuation and/or fluid extends to the deep tendinous and muscular compartment. No soft tissue gas. Other findings: No dominant marginated fluid collection. CT/CT hand RT w con [id number] IMPRESSION: 1. Soft tissue edema or cellulitis. 2. No dominant marginated fluid collection or gas. 3. Most likely deep soft tissue involvement and potential fluid or abnormal enhancement extending at peritendinous flexor and extensor compartments. MRI is recommended as the imaging modality of assessment for higher level of soft tissue sensitivity..
--- NOTE | 2024-08-19 04:14 | ED_ITS ---
Documented by User: Corby Asher DO 08/19/24 04:38 HPI - Skin/Abscess/Foreign Bdy 2 General: Chief complaint: Skin/Abscess/Foreign Body Stated complaint: R Hand Infection Time Seen by Provider: 08/19/24 03:57 History of Present Illness: Patient presents to the ER with infection in his right hand. Started in the middle knuckle the redness is only distally down the finger and proximally up through the dorsum of the hand up to the wrist joint. The area is swollen edematous and possibly fluctuant. Patient has a history of multiple infections and amputations due to his diabetes and poor healing. Related Data Home Medications Medication Instructions Recorded Confirmed atorvastatin 40 mg tablet 40 mg PO QPM 01/27/24 08/19/24 gabapentin 300 mg capsule 600 mg PO BID 01/27/24 08/19/24 hydrochlorothiazide 25 mg tablet 25 mg PO DAILY 01/27/24 08/19/24 insulin lispro 100 unit/mL See Rx Instructions .Route .COMPLEX 01/27/24 08/19/24 subcutaneous pen (Humalog KwikPen (U-100) Insulin) metformin 1,000 mg tablet 1,000 mg PO BID 01/27/24 08/19/24 rivaroxaban 20 mg tablet (Xarelto) 20 mg PO BEDTIME 01/27/24 08/19/24 venlafaxine 75 mg capsule,extended 75 mg PO DAILY 01/27/24 08/19/24 release 24 hr bupropion HCl 150 mg tablet,12 hr 150 mg PO BID 04/05/24 08/19/24 sustained-release dulaglutide 4.5 mg/0.5 mL 4.5 mg SUBCUT Q7D 04/05/24 08/19/24 subcutaneous pen injector (Trulicity) multivitamin 1 tab PO DAILY 06/07/24 08/19/24 amlodipine 5 mg tablet 5 mg PO DAILY 08/19/24 08/19/24 insulin glargine 100 unit/mL (3 75 unit SUBCUT BID 08/19/24 08/19/24 mL) subcutaneous pen (Lantus Solostar U-100 Insulin) lisinopril 5 mg tablet 5 mg PO DAILY 08/19/24 08/19/24 Previous Rx's Medication Instructions Recorded metoprolol tartrate 25 mg tablet 25 mg PO BID@0900,2100 #60 tabs 05/03/24 Allergies Allergy/AdvReac Type Severity Reaction Status Date / Time No Known Allergies Allergy Verified 08/19/24 04:12 Review of Systems 2 General: Reports: 10 or more systems reviewed and unremarkable except in HPI and below PFSH ED 2 PFSH: Medical History (Updated 08/19/24 @ 15:19 by Tomas Alvarenga DO) Chronic anticoagulation Xarelto Diabetes mellitus, type II, insulin dependent Chronic osteomyelitis of left foot Puncture wound of left foot Non-pressure chronic ulcer of other part of left foot with necrosis of bone Diabetic peripheral neuropathy associated with type 2 diabetes mellitus Cystitis BMI 37.0-37.9, adult Cellulitis of toe of left foot Obstructive sleep apnea treated with bilevel positive airway pressure (BPAP) Settings 07/06 Diabetic neuropathy History of pulmonary embolism 2006, 1st episode, severe; has had recurrent clotting and in on lifelong anticoagulation with xarelto History of DVT (deep vein thrombosis) 2006, 1st onset, has had recurrent blood clots and is now on chronic anticoagulation with xarelto Dyslipidemia Hypertension Surgical History 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, nonhealing Hx of reduction of orbital fracture History of hip surgery bilateral hips at age 12 for what sounds like recurrent dislocation or dysplasia History of carpal tunnel release of both wrists left x 1, right x 1 History of back surgery low back x 2 Family History Mother Colon cancer diagnosis in her early 50s Other Cancer of female organs Diabetes Heart disease Stroke Social History Smoking and tobacco/nicotine status: former use of tobacco/nicotine Alcohol intake: never Substance/Drug Use: former Former substance use details: has used THC for back pain control & after surgeries in past but none now Caregiver/support person: Yes Physical Exam 2 Const: COMMON NORMALS: no acute distress, average body habitus, patient oriented x3, no limitations, healthy appearing, alert and well nourished HENMT: COMMON NORMALS: normocephalic, atraumatic, hearing grossly normal bilaterally, external ears normal, Normal external nose present and moist oral mucous membranes HEAD & SCALP: normocephalic and atraumatic NOSE: Normal external nose present EXTERNAL EAR: Yes external ears normal Neck/C-Spine: COMMON NORMALS: no JVD Chest: COMMONS NORMALS: normal inspection of the chest and normal palpation of entire chest wall Resp: COMMON NORMALS: normal respiratory effort, No retractions, No use of accessory muscles and clear to auscultation bilaterally AUSCULTATION: clear to auscultation bilaterally Cardio: COMMON NORMALS: no JVD, regular rhythm, S1 normal heart sound present, S2 normal heart sound present, No gallops present (Cardio), No clicks present (Cardio), No murmurs present (Cardio) and No rub (Cardio); negative for regular rate (Mildly tachycardic) RATE: abnormal rate (Mildly tachycardic) RHYTHM: regular rhythm HEART SOUNDS: S1 normal heart sound present and S2 normal heart sound present GI: COMMON NORMALS: Normal to inspection, nondistended, normoactive bowel sounds present, Soft to palpation, non-tender, No hepatosplenomegaly present and no masses PALPATION: Yes Soft to palpation and Yes No hepatosplenomegaly present Extremity: NARRATIVE EXTREMITY EXAM: Right middle finger and dorsum of hand red swollen irritated erythematous warm streaking up to wrist, possible fluctuance tender to palpate Neuro: COMMON NORMALS: patient oriented x3 SENSORIUM/ORIENTATION: Yes alert Course 2 Vital Signs: Vital signs: Vital Signs Temperature 98.1 F 08/19/24 13:45 Pulse Rate 98 08/19/24 13:45 Respiratory Rate 17 08/19/24 13:45 Blood Pressure 169/90 08/19/24 13:45 Pulse Oximetry 98 08/19/24 13:45 Oxygen Delivery Me thod Room Air 08/19/24 13:57 MDM - Skin/Abscess/Foreign Bdy Medical Records I reviewed the patient's medical records. Lab Data I reviewed the patient's lab results. 08/19/24 04:27 08/19/24 04:[address] 08/19/24 04:11 IMPRESSION: 1. Soft tissue edema or cellulitis. 2. No dominant marginated fluid collection or gas. 3. Most likely deep soft tissue involvement and potential fluid or abnormal enhancement extending at peritendinous flexor and extensor compartments. MRI is recommended as the imaging modality of assessment for higher level of soft tissue sensitivity.. Hand MRI 08/19/24 07:43 IMPRESSION: 1. Diffuse cellulitis along the dorsal surface of the hand and fingers. Most significant cellulitis without abscess is associated with the second and third metacarpals and proximal phalanges. 2. No osteomyelitis. 3. No soft tissue abscess. Laboratory Results WBC 11.54 10^3/uL (3.29-11.43) H 08/19/24 04:27 RBC 4.57 10^6/uL (3.85-5.65) 08/19/24 04:27 Hgb 12.10 g/dL (11.27-16.99) 08/19/24 04:27 Hct 37.9 % (37-53) 08/19/24 04:27 MCV 82.9 fl (82-101) 08/19/24 04:27 MCH 26.5 pg (27-33) L 08/19/24 04:27 MCHC 31.9 g/dL (30-55) 08/19/24 04:27 RDW 15.4 % (12.1-15.1) H 08/19/24 04:27 Plt Count 185 10^3/cmm (157-399) 08/19/24 04:27 MPV 10.0 fL (7.4-10.4) 08/19/24 04:27 Neut % (Auto) 64.2 % 08/19/24 04:27 Lymph % (Auto) 22.4 % 08/19/24 04:27 Jenkins % (Auto) 10.0 % 08/19/24 04:27 Eos % (Auto) 2.7 % 08/19/24 04:27 Baso % (Auto) 0.4 % 08/19/24 04:27 Neut # (Auto) 7.40 10^3/uL (1.8-7.7) 08/19/24 04:27 Lymph # (Auto) 2.6 10^3/uL (0.8-4.8) 08/19/24 04:27 Jenkins # (Auto) 1.2 10^3/uL (0.2-0.9) H 08/19/24 04:27 Eos # (Auto) 0.3 10^3/uL (0.0-0.8) 08/19/24 04:27 Baso # (Auto) 0.1 10^3/uL (0.0-0.1) 08/19/24 04:27 Nucleated RBC % (auto) 0 % 08/19/24 04:27 Nucleated RBCs # 0.0 /100WBC 08/19/24 04:27 Sodium 135 mmol/L (136-145) L 08/19/24 04:27 Potassium 4.4 mmol/L (3.5-5.1) 08/19/24 04:27 Chloride 99 mmol/L (98-107) 08/19/24 04:27 Carbon Dioxide 24 mmol/L (22-29) 08/19/24 04:27 Anion Gap 16.4 (5-19) 08/19/24 04:27 BUN 16 mg/dL (6-20) 08/19/24 04:27 Creatinine 1.0 mg/dL (0.7-1.2) 08/19/24 04:27 GFR Calculation 77.9 mL/min (90-130) L 08/19/24 04:27 Glucose 362 mg/dL (65-115) H 08/19/24 04:27 Calculated Osmolality 296 mOsm/kg (285-295) H 08/19/24 04:27 Calcium 9.3 mg/dL (8.5-10.5) 08/19/24 04:27 Total Bilirubin 0.4 mg/dL (0.15-1.2) 08/19/24 04:27 AST 18 U/L (0-40) 08/19/24 04:27 ALT 24 U/L (0-41) 08/19/24 04:27 Alkaline Phosphatase 88 U/L (40-130) 08/19/24 04:27 C-Reactive Protein 36.1 mg/L (0.0-4.9) H 08/19/24 04:27 Total Protein 7.5 g/dL (6.6-8.7) 08/19/24 04:27 Albumin 3.8 g/dL (3.5-5.2) 08/19/24 04:27 Globulin 3.7 g/dL (1.3-4.6) 08/19/24 04:27 All radiology interpretation(s) finalized by discharge Discharge Plan Discharge Patient Disposition: Admitted As Inpatient Admit Provider: Justin Masters Clinical Impression: Cellulitis of right hand, Diabetes mellitus, type II, insulin dependent, Chronic anticoagulation Condition: Stable Sign Out Sign Out Data: Patient Sign Out occurred on 08/19/24 at 06:35. Patient's care was discussed, and care was transferred from Corby Asher DO to Tomas Alvarenga DO. Coding Level of Care Code ED Professor Of Archaeology for Chg Fwd Documented by User: Tomas Alvarenga DO 08/19/24 15:19 HPI - Skin/Abscess/Foreign Bdy 2 General: Chief complaint: Skin/Abscess/Foreign Body Stated complaint: R Hand Infection Time Seen by Provider: 08/19/24 03:57 Related Data Home Medications Medication Instructions Recorded Confirmed atorvastatin 40 mg tablet 40 mg PO QPM 01/27/24 08/19/24 gabapentin 300 mg capsule 600 mg PO BID 01/27/24 08/19/24 hydrochlorothiazide 25 mg tablet 25 mg PO DAILY 01/27/24 08/19/24 insulin lispro 100 unit/mL See Rx Instructions .Route .COMPLEX 01/27/24 08/19/24 subcutaneous pen (Humalog KwikPen (U-100) Insulin) metformin 1,000 mg tablet 1,000 mg PO BID 01/27/24 08/19/24 rivaroxaban 20 mg tablet (Xarelto) 20 mg PO BEDTIME 01/27/24 08/19/24 venlafaxine 75 mg capsule,extended 75 mg PO DAILY 01/27/24 08/19/24 release 24 hr bupropion HCl 150 mg tablet,12 hr 150 mg PO BID 04/05/24 08/19/24 sustained-release dulaglutide 4.5 mg/0.5 mL 4.5 mg SUBCUT Q7D 04/05/24 08/19/24 subcutaneous pen injector (Trulicity) multivitamin 1 tab PO DAILY 06/07/24 08/19/24 amlodipine 5 mg tablet 5 mg PO DAILY 08/19/24 08/19/24 insulin glargine 100 unit/mL (3 75 unit SUBCUT BID 08/19/24 08/19/24 mL) subcutaneous pen (Lantus Solostar U-100 Insulin) lisinopril 5 mg tablet 5 mg PO DAILY 08/19/24 08/19/24 Previous Rx's Medication Instructions Recorded metoprolol tartrate 25 mg tablet 25 mg PO BID@0900,2100 #60 tabs 05/03/24 Allergies Allergy/AdvReac Type Severity Reaction Status Date / Time No Known Allergies Allergy Verified 08/19/24 04:12 PFSH ED 2 PFSH: Medical History (Updated 08/19/24 @ 15:19 by Tomas Alvarenga, DO) Chronic anticoagulation Xarelto Diabetes mellitus, type II, insulin dependent Chronic osteomyelitis of left foot Puncture wound of left foot Non-pressure chronic ulcer of other part of left foot with necrosis of bone Diabetic peripheral neuropathy associated with type 2 diabetes mellitus Cystitis BMI 37.0-37.9, adult Cellulitis of toe of left foot Obstructive sleep apnea treated with bilevel positive airway pressure (BPAP) Settings 07/06 Diabetic neuropathy History of pulmonary embolism 2006, 1st episode, severe; has had recurrent clotting and in on lifelong anticoagulation with xarelto History of DVT (deep vein thrombosis) 2006, 1st onset, has had recurrent blood clots and is now on chronic anticoagulation with xarelto Dyslipidemia Hypertension Surgical History 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, nonhealing Hx of reduction of orbital fracture History of hip surgery bilateral hips at age 12 for what sounds like recurrent dislocation or dysplasia History of carpal tunnel release of both wrists left x 1, right x 1 History of back surgery low back x 2 Family History Mother Colon cancer diagnosis in her early 50s Other Cancer of female organs Diabetes Heart disease Stroke Social History Smoking and tobacco/nicotine status: former use of tobacco/nicotine Alcohol intake: never Substance/Drug Use: former Former substance use details: has used THC for back pain control & after surgeries in past but none now Caregiver/support person: Yes Course 2 Vital Signs: Vital signs: Vital Signs Temperature 98.1 F 08/19/24 13:45 Pulse Rate 98 08/19/24 13:45 Respiratory Rate 17 08/19/24 13:45 Blood Pressure 169/90 08/19/24 13:45 Pulse Oximetry 98 08/19/24 13:45 Oxygen Delivery Me thod Room Air 08/19/24 13:57 MDM - Skin/Abscess/Foreign Bdy Medicial Decision Making Care assumed at change of shift. CT shows cellulitis no apparent abscess. I called and discussed Dr. Jean Baptiste is on-call at [facility] for hand surgery. We uploaded the films and with the patient's permission texted that Dr. Jean Baptiste pictures of his hand. After reviewing both she recommended treatment for cellulitis. Discussed Dr. Limon and Dr. Masters. MRI done there is no evidence of tenosynovitis. Will admit for cellulitis hand has been started on Vanco and Zosyn Lab Data 08/19/24 04:27 08/19/24 04:[address] 08/19/24 04:11 IMPRESSION: 1. Soft tissue edema or cellulitis. 2. No dominant marginated fluid collection or gas. 3. Most likely deep soft tissue involvement and potential fluid or abnormal enhancement extending at peritendinous flexor and extensor compartments. MRI is recommended as the imaging modality of assessment for higher level of soft tissue sensitivity.. Hand MRI 08/19/24 07:43 IMPRESSION: 1. Diffuse cellulitis along the dorsal surface of the hand and fingers. Most significant cellulitis without abscess is associated with the second and third metacarpals and proximal phalanges. 2. No osteomyelitis. 3. No soft tissue abscess. Laboratory Results WBC 11.54 10^3/uL (3.29-11.43) H 08/19/24 04:27 RBC 4.57 10^6/uL (3.85-5.65) 08/19/24 04:27 Hgb 12.10 g/dL (11.27-16.99) 08/19/24 04:27 Hct 37.9 % (37-53) 08/19/24 04:27 MCV 82.9 fl (82-101) 08/19/24 04:27 MCH 26.5 pg (27-33) L 08/19/24 04:27 MCHC 31.9 g/dL (30-55) 08/19/24 04:27 RDW 15.4 % (12.1-15.1) H 08/19/24 04:27 Plt Count 185 10^3/cmm (157-399) 08/19/24 04:27 MPV 10.0 fL (7.4-10.4) 08/19/24 04:27 Neut % (Auto) 64.2 % 08/19/24 04:27 Lymph % (Auto) 22.4 % 08/19/24 04:27 Jenkins % (Auto) 10.0 % 08/19/24 04:27 Eos % (Auto) 2.7 % 08/19/24 04:27 Baso % (Auto) 0.4 % 08/19/24 04:27 Neut # (Auto) 7.40 10^3/uL (1.8-7.7) 08/19/24 04:27 Lymph # (Auto) 2.6 10^3/uL (0.8-4.8) 08/19/24 04:27 Jenkins # (Auto) 1.2 10^3/uL (0.2-0.9) H 08/19/24 04:27 Eos # (Auto) 0.3 10^3/uL (0.0-0.8) 08/19/24 04:27 Baso # (Auto) 0.1 10^3/uL (0.0-0.1) 08/19/24 04:27 Nucleated RBC % (auto) 0 % 08/19/24 04:27 Nucleated RBCs # 0.0 /100WBC 08/19/24 04:27 Sodium 135 mmol/L (136-145) L 08/19/24 04:27 Potassium 4.4 mmol/L (3.5-5.1) 08/19/24 04:27 Chloride 99 mmol/L (98-107) 08/19/24 04:27 Carbon Dioxide 24 mmol/L (22-29) 08/19/24 04:27 Anion Gap 16.4 (5-19) 08/19/24 04:27 BUN 16 mg/dL (6-20) 08/19/24 04:27 Creatinine 1.0 mg/dL (0.7-1.2) 08/19/24 04:27 GFR Calculation 77.9 mL/min (90-130) L 08/19/24 04:27 Glucose 362 mg/dL (65-115) H 08/19/24 04:27 Calculated Osmolality 296 mOsm/kg (285-295) H 08/19/24 04:27 Calcium 9.3 mg/dL (8.5-10.5) 08/19/24 04:27 Total Bilirubin 0.4 mg/dL (0.15-1.2) 08/19/24 04:27 AST 18 U/L (0-40) 08/19/24 04:27 ALT 24 U/L (0-41) 08/19/24 04:27 Alkaline Phosphatase 88 U/L (40-130) 08/19/24 04:27 C-Reactive Protein 36.1 mg/L (0.0-4.9) H 08/19/24 04:27 Total Protein 7.5 g/dL (6.6-8.7) 08/19/24 04:27 Albumin 3.8 g/dL (3.5-5.2) 08/19/24 04:27 Globulin 3.7 g/dL (1.3-4.6) 08/19/24 04:27 Discharge Plan Discharge Patient Disposition: Admitted As Inpatient Admit Provider: Justin Masters Clinical Impression: Cellulitis of right hand, Diabetes mellitus, type II, insulin dependent, Chronic anticoagulation Condition: Stable Sign Out Sign Out Data: Patient Sign Out occurred on 08/19/24 at 06:35. Patient's care was discussed, and care was transferred from Corby Asher DO to Tomas Alvarenga DO. Coding Level of Care Code ED Professor Of Archaeology for Tavo Rodrigues
[2024-08-19 04:35] LABS: Basophils # 0.1 10^3/uL (0.0-0.1); Basophils % 0.4 %; Eosinophils # 0.3 10^3/uL (0.0-0.8); Eosinophils % 2.7 %; Hematocrit 37.9 % (37-53); Lymphocytes # 2.6 10^3/uL (0.8-4.8); Lymphocytes % 22.4 %; Mean Corpuscular HGB Conc 31.9 g/dL (30-55); Mean Corpuscular Hemoglobin 26.5 pg (27-33); Mean Corpuscular Volume 82.9 fl (82-101); Monocytes # 1.2 10^3/uL (0.2-0.9); Neutrophils % 64.2 %; Nucleated Red Blood Cells % 0 %; Platelet Count 185 10^3/cmm (157-399); Red Blood Count 4.57 10^6/uL (3.85-5.65); Red Cell Distribution Width 15.4 % (12.1-15.1); White Blood Count 11.54 10^3/uL (3.29-11.43)
[2024-08-19] MEDS: iohexol 350 mg/mL 500 mL Btl (per mL) IV (04:49)
[2024-08-19 04:57] LABS: Albumin Level 3.8 g/dL (3.5-5.2); Alkaline Phosphatase 88 U/L (40-130); Anion Gap 16.4 (5-19); Aspartate Amino Transferase 18 U/L (0-40); Blood Urea Nitrogen 16 mg/dL (6-20); C Reactive Protein 36.1 mg/L (0.0-4.9); Calcium 9.3 mg/dL (8.5-10.5); Carbon Dioxide 24 mmol/L (22-29); Chloride 99 mmol/L (98-107); Creatinine Clr Calc Pharmacy 122.8414; Globulin 3.7 g/dL (1.3-4.6); Glomerular Filtration Rate 77.9 mL/min (90-130); Glucose 362 mg/dL (65-115); Osmolality Calculated 296 mOsm/kg (285-295); Potassium 4.4 mmol/L (3.5-5.1); Sodium 135 mmol/L (136-145); Total Bilirubin 0.4 mg/dL (0.15-1.2); Total Protein 7.5 g/dL (6.6-8.7)
[2024-08-19 05:07] LABS: Alanine Aminotransferase 24 U/L (0-41)
[2024-08-19] MEDS: piperacillin-tazobactam 3.375 GM in sodium chloride 0.9% (plus) 50 ML IV ×2 (05:15→16:01)
[2024-08-19] MEDS: VANCOMYCIN ADD-Vantage 1,000 MG in 0.9% NaCl ADD-Vantage 250 ML 250 MG IV (05:58)
--- NOTE | 2024-08-19 07:43 | MR_ITS ---
WS: [id number] MRI RIGHT HAND WITH AND WITHOUT CONTRAST. COMPARISON: CT 08/19/2024 Multiplanar, multisequence imaging is performed with and without contrast. MultiHance postcontrast im aging No fractures or marrow edema. No evidence for osteomyelitis. No enhancement at the interphalangeal herb ints. There is mild diffuse soft tissue edema with enhancement along the dorsal surface of the hand and fin gers. There is no well-formed fluid collection. Largest area of edema is along the dorsal hand at the level of the second and third metacarpal and metacarpal phalangeal joints and along the proximal pha langes. There is mild enhancement surrounding the extensor digitorum tendon of the second and third f ingers. No fluid collection. MR/MR hand RT wo/w con [id number] IMPRESSION: 1. Diffuse cellulitis along the dorsal surface of the hand and fingers. Most s ignificant cellulitis without abscess is associated with the second and third m etacarpals and proximal phalanges. 2. No osteomyelitis. 3. No soft tissue abscess.
[2024-08-19] MEDS: gadobenate dimeglumine 20 mL vial IV (10:43)
--- NOTE | 2024-08-19 11:34 | P.HP_ITS ---
Providers/Chief Complaint 2 Admitting Physician: Justin Masters MD Primary Care Provider: Alejandrina Omalley Chief Complaint: R Hand Infection History of Present Illness Zach Crespo is a 54 year old male presenting with some redness and of his right hand for the last 2 days. He got a scrape on the knuckle at some point in the past, he is not exactly sure how this occurred. He reports no fevers at home. He reports some swelling and mild discomfort but is still able to bend all of his fingers. He denies any numbness or tingling distally. Review of Systems 2 General: Reports: 10 or more systems reviewed and unremarkable except in HPI and below Card: Denies: chest pain Resp: Denies: dyspnea GI: Denies: abdominal pain Medications/Allergies Home Medications Medication Instructions Recorded Confirmed Last Taken Type atorvastatin 40 mg tablet 40 mg PO QPM 01/27/24 08/19/24 08/18/24 History gabapentin 300 mg capsule 600 mg PO BID 01/27/24 08/19/24 08/18/24 History hydrochlorothiazide 25 mg tablet 25 mg PO DAILY 01/27/24 08/19/24 08/18/24 History insulin lispro 100 unit/mL See Rx Instructions .Route .COMPLEX 01/27/24 08/19/24 08/18/24 History subcutaneous pen (Humalog KwikPen (U-100) Insulin) metformin 1,000 mg tablet 1,000 mg PO BID 01/27/24 08/19/24 08/18/24 History rivaroxaban 20 mg tablet (Xarelto) 20 mg PO BEDTIME 01/27/24 08/19/24 08/18/24 History venlafaxine 75 mg capsule,extended 75 mg PO DAILY 01/27/24 08/19/24 08/18/24 History release 24 hr bupropion HCl 150 mg tablet,12 hr 150 mg PO BID 04/05/24 08/19/24 08/18/24 History sustained-release dulaglutide 4.5 mg/0.5 mL 4.5 mg SUBCUT Q7D 04/05/24 08/19/24 08/15/24 History subcutaneous pen injector (Trulicity) metoprolol tartrate 25 mg tablet 25 mg PO BID@0900,2100 #60 tabs 05/03/24 08/19/24 08/18/24 Rx multivitamin 1 tab PO DAILY 06/07/24 08/19/24 08/18/24 History amlodipine 5 mg tablet 5 mg PO DAILY 08/19/24 08/19/24 08/18/24 History insulin glargine 100 unit/mL (3 75 unit SUBCUT BID 08/19/24 08/19/24 08/18/24 History mL) subcutaneous pen (Lantus Solostar U-100 Insulin) lisinopril 5 mg tablet 5 mg PO DAILY 08/19/24 08/19/24 08/18/24 History Allergies Allergy/AdvReac Type Severity Reaction Status Date / Time No Known Allergies Allergy Verified 08/19/24 04:12 PFSH Acute 2 PFSH: Medical History (Updated 08/19/24 @ 12:01 by Justin Masters MD) Chronic anticoagulation Xarelto Diabetes mellitus, type II, insulin dependent Chronic osteomyelitis of left foot Puncture wound of left foot Non-pressure chronic ulcer of other part of left foot with necrosis of bone Diabetic peripheral neuropathy associated with type 2 diabetes mellitus Cystitis BMI 37.0-37.9, adult Cellulitis of toe of left foot Obstructive sleep apnea treated with bilevel positive airway pressure (BPAP) Settings 07/06 Diabetic neuropathy History of pulmonary embolism 2006, 1st episode, severe; has had recurrent clotting and in on lifelong anticoagulation with xarelto History of DVT (deep vein thrombosis) 2006, 1st onset, has had recurrent blood clots and is now on chronic anticoagulation with xarelto Dyslipidemia Hypertension Surgical History 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, nonhealing Hx of reduction of orbital fracture History of hip surgery bilateral hips at age 12 for what sounds like recurrent dislocation or dysplasia History of carpal tunnel release of both wrists left x 1, right x 1 History of back surgery low back x 2 Family History Mother Colon cancer diagnosis in her early 50s Other Cancer of female organs Diabetes Heart disease Stroke Social History Smoking and tobacco/nicotine status: former use of tobacco/nicotine Alcohol intake: never Substance/Drug Use: former Former substance use details: has used THC for back pain control & after surgeries in past but none now Caregiver/support person: Yes Vitals/I&O/Wt Last Vital Signs Temp 98.4 F 08/19/24 04:00 Pulse 110 H 08/19/24 04:00 Resp 102 H 08/19/24 06:40 BP 124/74 08/19/24 06:40 Pulse Ox 98 08/19/24 08:21 O2 Del Method Room Air 08/19/24 04:00 08/18/24 08/19/24 08/19/24 22:59 06:59 14:59 Intake Total 50 / 50 250 / 250 Balance 50 / 50 250 / 250 Weight last 48 hrs Weight 133.81 kg Physical Exam 2 Narrative: General exam is a white male, no distress HEENT: Atraumatic normocephalic. Oropharynx clear Neck is supple no lymphadenopathy thyromegaly Cardiovascular regular rate and rhythm without murmur Lungs clear no wheezing or crackles Abdomen is soft nontender positive bowel sounds exam is deferred Extremities no cyanosis clubbing or edema. Right lower extremity with foot ulcer, heel, stage II, with no evidence of infection or drainage. Right hand with a small scab overlying PIP joint. Cellulitis on the dorsum of the hand, with some edema of the hand and a slight amount on the palmar surface. Able to bend all joints although somewhat stiff secondary to edema. Distal cap refill intact. Margins marked. Skin see findings above Neuro no focal deficits Data 08/19/24 04:27 08/19/24 04:27 Other Labs: CRP 36 LFTs normal Blood cultures drawn Hand CT demonstrated question cellulitis, no gas, question deep tissue involvement Hand MRI demonstrated cellulitis, no abscess Micro: Microbiology 08/19/24 05:41 Blood Culture - Preliminary Blood SPECIMEN COLLECTED 08/19/24 04:29 Blood Culture - Preliminary Blood SPECIMEN COLLECTED A&P Assessment and plan (1) Cellulitis of right hand: Patient has cellulitis of the right hand Clinically this appears to be superficial Initiate vancomycin and Zosyn, he is high risk secondary to his diabetes, history of diabetic foot ulcers, etc. MRSA PCR swab Margins marked MRI results do not demonstrate any significant joint infection or osteomyelitis Appropriate for observation, less than 2 midnights possible. (2) Diabetes mellitus, type II, insulin dependent: Continue home regimen of long-acting insulin, aggressive sliding scale. (3) Chronic anticoagulation: Continue patient's Xarelto. He is on this for past history of pulmonary embolism. This will suffice for DVT prophylaxis as well. Plan Other medical problems as outlined in past medical history Full code Xarelto will suffice for DVT prophylaxis Attestations 2 Medical Necessity Statement*: May require less than 2 midnight stay regarding cellulitis right hand. Diagnoses Cellulitis of right hand L03.113 Diabetes mellitus, type II, insulin dependent E11.9; Z79.4 Chronic anticoagulation Z79.01 Time Spent (min) 45
[2024-08-19] MEDS: morphine 4 mg/mL SDV 1 mL IVP (12:31)
--- NOTE | 2024-08-19 13:56 | PHA.VACGOAL ---
Vancomycin Goal - Goal Vancomycin Goal:: 15-20 mg/L Vancomycin Indication:: SSTI - Therapy Current therapy:: Pip/Tazo Day of therpy:: Day []of [] . Actual body weight (kg): 295 lb - Data Labs: WBC 11.54 10^3/uL (3.29-11.43) H 08/19/24 04:27 RBC 4.57 10^6/uL (3.85-5.65) 08/19/24 04:27 Hgb 12.10 g/dL (11.27-16.99) 08/19/24 04:27 Hct 37.9 % (37-53) 08/19/24 04:27 MCV 82.9 fl (82-101) 08/19/24 04:27 MCH 26.5 pg (27-33) L 08/19/24 04:27 MCHC 31.9 g/dL (30-55) 08/19/24 04:27 RDW 15.4 % (12.1-15.1) H 08/19/24 04:27 Sodium 135 mmol/L (136-145) L 08/19/24 04:27 Potassium 4.4 mmol/L (3.5-5.1) 08/19/24 04:27 Chloride 99 mmol/L (98-107) 08/19/24 04:27 Carbon Dioxide 24 mmol/L (22-29) 08/19/24 04:27 Anion Gap 16.4 (5-19) 08/19/24 04:27 BUN 16 mg/dL (6-20) 08/19/24 04:27 Creatinine 1.0 mg/dL (0.7-1.2) 08/19/24 04:27 GFR Calculation 77.9 mL/min (90-130) L 08/19/24 04:27 Last dialysis session:: N/A Treatment plan:: new consult Regimen:: VANC 1g given in ER WILL START MAINTENANCE DOSE OF 1500 MG Q8H PER DOSING PROTOCOL Follow up:: WILL CONTINUE TO MONITOR AND FOLLOW UP DAILY
[2024-08-19] MEDS: vancomycin 1,500 MG/300 ML PIGGYBACK 200 MG IV ×2 (16:03→22:30)
[2024-08-19 16:11] LABS: Glucose Point of Care 331 mg/dL (70-110)
[2024-08-19] MEDS: insulin lispro 100 unit/1 mL SUBCUT ×2 (17:18→20:50)
[2024-08-19] MEDS: gabapentin 300 mg Capsule 600 MG PO (17:18)
[2024-08-19] MEDS: atorvastatin 40 mg Tablet PO (17:18)
[2024-08-19] MEDS: insulin glargine 100 units/1 mL 75 UNIT SUBCUT (17:18)
[2024-08-19] MEDS: buPROPion SR (12 HR) 150 mg Tablet PO (17:30)
[2024-08-19 19:30] LABS: MRSA PCR OZH (swab) NOT DETECTED (Negative)
[2024-08-19 20:43] LABS: Glucose Point of Care 268 mg/dL (70-110)
[2024-08-19] MEDS: rivaroxaban 10 mg Tablet 20 MG PO (20:46)
[2024-08-19] MEDS: metoprolol tartrate 25 mg Tablet PO (20:46)
[2024-08-19 23:27] LABS: Bacillus cereus group Not Detected (NOT DETECT); Bacillus subtillis group Not Detected (NOT DETECT); Corynebacterium Not Detected (NOT DETECT); Cutibacterium acnes (P.acnes) Not Detected (NOT DETECT); Enterococcus Not Detected (NOT DETECT); Enterococcus faecalis Not Detected (NOT DETECT); Enterococcus faecium Not Detected (NOT DETECT); Lactobacillus species Not Detected (NOT DETECT); Listeria Not Detected (NOT DETECT); Listeria monocytogenes Not Detected (NOT DETECT); Micrococcus Not Detected (NOT DETECT); Pan Candida Not Detected (NOT DETECT); Pan Gram-Negative Not Detected (NOT DETECT); Staphylococcus epidermidis Not Detected (NOT DETECT); Staphylococcus lugdunensis Not Detected (NOT DETECT); Staphylococcus species Not Detected (NOT DETECT); Streptococcus agalactiae Not Detected (NOT DETECT); Streptococcus anginosus group Not Detected (NOT DETECT); Streptococcus pneumoniae Not Detected (NOT DETECT); Streptococcus pyogenes Not Detected (NOT DETECT); Streptococcus species Detected (NOT DETECT)
[2024-08-19 23:35] LABS: Glucose Point of Care 185 mg/dL (70-110)
[2024-08-19] MEDS: acetaminophen 325 mg Tablet 650 MG PO (23:47)
[2024-08-20] MEDS: piperacillin-tazobactam 3.375 GM in sodium chloride 0.9% (plus) 50 ML IV ×3 (01:07→17:36)
[2024-08-20 04:00] VITALS: BP 128/67; PULSE 79; RESP 19; TEMP 37.1; O2SAT 95
[2024-08-20] MEDS: vancomycin 1,500 MG/300 ML PIGGYBACK 200 MG IV ×3 (05:38→22:04)
[2024-08-20 06:13] LABS: Basophils % 0.4 %; Eosinophils # 0.4 10^3/uL (0.0-0.8); Eosinophils % 3.9 %; Hematocrit 34.7 % (37-53); Lymphocytes # 2.7 10^3/uL (0.8-4.8); Lymphocytes % 28.1 %; Mean Corpuscular HGB Conc 31.7 g/dL (30-55); Mean Corpuscular Hemoglobin 26.9 pg (27-33); Mean Corpuscular Volume 84.8 fl (82-101); Mean Platelet Volume 10.1 fL (7.4-10.4); Monocytes # 1.3 10^3/uL (0.2-0.9); Monocytes % 12.9 %; Neutrophils # 5.26 10^3/uL (1.8-7.7); Neutrophils % 54.5 %; Nucleated Red Blood Cells % 0 %; Platelet Count 165 10^3/cmm (157-399); Red Blood Count 4.09 10^6/uL (3.85-5.65); Red Cell Distribution Width 15.4 % (12.1-15.1); White Blood Count 9.66 10^3/uL (3.29-11.43)
[2024-08-20 06:26] LABS: Glucose Point of Care 210 mg/dL (70-110)
[2024-08-20 06:34] LABS: Anion Gap 15.2 (5-19); Blood Urea Nitrogen 14 mg/dL (6-20); Calcium 8.9 mg/dL (8.5-10.5); Carbon Dioxide 25 mmol/L (22-29); Chloride 102 mmol/L (98-107); Creatinine Clr Calc Pharmacy 122.8844; Glomerular Filtration Rate 77.9 mL/min (90-130); Glucose 217 mg/dL (65-115); Osmolality Calculated 293 mOsm/kg (285-295); Potassium 4.2 mmol/L (3.5-5.1); Sodium 138 mmol/L (136-145)
[2024-08-20 08:00] VITALS: BP 116/51; PULSE 74; RESP 18; TEMP 36.5; O2SAT 97
--- NOTE | 2024-08-20 08:18 | P.PN_ITS ---
Subjective 2 Subjective: Zach reports he is doing okay. He believes the hand might be a little bit better but it is still tight and painful. Medications: Reviewed: Yes Vitals/I&O/Wt Last Vital Signs Temp 97.7 F 08/20/24 08:00 Pulse 74 08/20/24 08:00 Resp 18 08/20/24 08:00 BP 116/51 08/20/24 08:00 Pulse Ox 97 08/20/24 08:00 O2 Del Method Room Air 08/20/24 08:00 08/19/24 08/20/24 08/20/24 22:59 06:59 14:59 Intake Total 1969 / 2220 800 / 3020 300 / 300 Balance 1969 / 0 800 / 3020 300 / 300 Weight last 48 hrs Weight 133.9 kg Weight 139.071 kg Weight 133.81 kg Physical Exam 2 Narrative: General exam is a white male, no distress Cardiovascular regular rate and rhythm without murmur Lungs clear no wheezing or crackles Abdomen is soft nontender positive bowel sounds Extremities right hand with some erythema dorsally, and a slight amount ventrally. It is not extended over the borders that were drawn yesterday. He still has movement at all joints. Data 08/20/24 05:30 08/20/24 05:30 Micro: Microbiology 08/19/24 05:41 Blood Culture - Preliminary Blood NEGATIVE TO DATE 08/19/24 04:29 Blood Culture - Preliminary Blood A&P Assessment and plan (1) Cellulitis of right hand: Patient has cellulitis of the right hand Clinically this appears to be superficial Continue vancomycin and Zosyn, he is high risk secondary to his diabetes, history of diabetic foot ulcers, etc. MRSA PCR swab negative. This can help guide treatment at discharge. Until he makes improvement, will continue vancomycin and Zosyn Margins marked MRI results do not demonstrate any significant joint infection or osteomyelitis Blood cultures negative to date. (2) Diabetes mellitus, type II, insulin dependent: Continue home regimen of long-acting insulin, aggressive sliding scale. (3) Chronic anticoagulation: Continue patient's Xarelto. He is on this for past history of pulmonary embolism. This will suffice for DVT prophylaxis as well. Plan Other medical problems as outlined in past medical history Full code Xarelto will suffice for DVT prophylaxis Attestations 2 Medical Necessity Statement*: Needs continued hospitalization for IV antibiotics secondary to cellulitis right hand in this patient with immunocompromise state secondary to diabetes. Diagnoses Cellulitis of right hand L03.113 Diabetes mellitus, type II, insulin dependent E11.9; Z79.4 Chronic anticoagulation Z79.01 Time Spent (min) 16
[2024-08-20] MEDS: insulin lispro 100 unit/1 mL SUBCUT ×4 (09:09→20:40)
[2024-08-20] MEDS: amlodipine 5 mg Tablet PO (09:10)
[2024-08-20] MEDS: gabapentin 300 mg Capsule 600 MG PO ×2 (09:10→17:37)
[2024-08-20] MEDS: lisinopril 5 mg Tablet PO (09:10)
[2024-08-20] MEDS: metoprolol tartrate 25 mg Tablet PO ×2 (09:10→20:40)
[2024-08-20] MEDS: venlafaxine ER (24HR) 75 mg Capsule PO (09:11)
[2024-08-20] MEDS: buPROPion SR (12 HR) 150 mg Tablet PO ×2 (09:11→17:37)
[2024-08-20] MEDS: hydroCHLOROthiazide 25 mg Tablet PO (09:11)
[2024-08-20] MEDS: insulin glargine 100 units/1 mL 75 UNIT SUBCUT ×2 (09:16→18:22)
[2024-08-20 12:00] VITALS: BP 158/86; PULSE 84; RESP 18; TEMP 37.1; O2SAT 96
[2024-08-20 12:05] LABS: Glucose Point of Care 279 mg/dL (70-110)
[2024-08-20 14:25] LABS: Vancomycin Trough 16.4 ug/mL (10-15)
[2024-08-20 15:53] LABS: Glucose Point of Care 212 mg/dL (70-110)
[2024-08-20 16:00] VITALS: BP 141/73; PULSE 86; RESP 18; TEMP 36.9; O2SAT 98
[2024-08-20] MEDS: atorvastatin 40 mg Tablet PO (17:37)
[2024-08-20] MEDS: acetaminophen 325 mg Tablet 650 MG PO (19:41)
[2024-08-20 20:00] VITALS: BP 124/64; PULSE 88; RESP 18; TEMP 37.9; O2SAT 94
[2024-08-20] MEDS: rivaroxaban 10 mg Tablet 20 MG PO (20:40)
[2024-08-20 20:46] LABS: Glucose Point of Care 282 mg/dL (70-110)
[2024-08-21] VITALS: BP 101/61; PULSE 74; RESP 17; TEMP 36.7; O2SAT 95
[2024-08-21] MEDS: piperacillin-tazobactam 3.375 GM in sodium chloride 0.9% (plus) 50 ML IV ×2 (00:25→09:13)
[2024-08-21 03:52] LABS: Basophils % 0.3 %; Eosinophils # 0.4 10^3/uL (0.0-0.8); Eosinophils % 3.8 %; Lymphocytes # 2.9 10^3/uL (0.8-4.8); Lymphocytes % 29.6 %; Mean Corpuscular HGB Conc 32.3 g/dL (30-55); Mean Corpuscular Hemoglobin 26.6 pg (27-33); Mean Corpuscular Volume 82.4 fl (82-101); Mean Platelet Volume 9.8 fL (7.4-10.4); Monocytes # 1.3 10^3/uL (0.2-0.9); Monocytes % 12.8 %; Neutrophils # 5.16 10^3/uL (1.8-7.7); Neutrophils % 53.1 %; Nucleated Red Blood Cells % 0 %; Platelet Count 175 10^3/cmm (157-399); Red Blood Count 4.25 10^6/uL (3.85-5.65); Red Cell Distribution Width 15.1 % (12.1-15.1); White Blood Count 9.73 10^3/uL (3.29-11.43)
[2024-08-21 04:00] VITALS: BP 103/59; PULSE 72; RESP 19; TEMP 36.8; O2SAT 96
[2024-08-21 04:11] LABS: Anion Gap 15.9 (5-19); Blood Urea Nitrogen 16 mg/dL (6-20); Calcium 8.9 mg/dL (8.5-10.5); Carbon Dioxide 23 mmol/L (22-29); Chloride 100 mmol/L (98-107); Creatinine Clr Calc Pharmacy 122.8844; Glomerular Filtration Rate 77.9 mL/min (90-130); Glucose 235 mg/dL (65-115); Osmolality Calculated 289 mOsm/kg (285-295); Potassium 3.9 mmol/L (3.5-5.1); Sodium 135 mmol/L (136-145)
[2024-08-21] MEDS: vancomycin 1,500 MG/300 ML PIGGYBACK 200 MG IV (05:41)
[2024-08-21 06:38] LABS: Glucose Point of Care 213 mg/dL (70-110)
[2024-08-21 07:36] VITALS: BP 131/87; PULSE 70; RESP 16; TEMP 36.7; O2SAT 97
[2024-08-21] MEDS: insulin lispro 100 unit/1 mL SUBCUT (08:48)
[2024-08-21] MEDS: insulin glargine 100 units/1 mL 75 UNIT SUBCUT (08:49)
[2024-08-21] MEDS: buPROPion SR (12 HR) 150 mg Tablet PO (08:49)
[2024-08-21] MEDS: venlafaxine ER (24HR) 75 mg Capsule PO (08:49)
[2024-08-21] MEDS: amlodipine 5 mg Tablet PO (08:49)
[2024-08-21] MEDS: hydroCHLOROthiazide 25 mg Tablet PO (08:49)
[2024-08-21] MEDS: metoprolol tartrate 25 mg Tablet PO (08:50)
[2024-08-21] MEDS: gabapentin 300 mg Capsule 600 MG PO (08:50)
[2024-08-21] MEDS: lisinopril 5 mg Tablet PO (08:50)
--- NOTE | 2024-08-21 09:56 | PC.CHAP ---
Pastoral Care Encounter/Spiritual Assessment Type of Contact [] Declined medical director/head team physician visit [] Patient/Family/Request visit [] Outpatient visit [] Follow-up visit [] Physician referral [] Code/Alert [X] Routine visit [] Staff referral [] Actively dying [] Patient sleeping [] Family support [] [] Out of room [] Palliative care [] [] Receiving care in room [] Pre-surgical visit [] Trauma [] Long length of stay [] ICU visit [] Other: Relational/Emotional Strength [X] Patient feels connected with others/family/visitors/staff [] Distress [] Loneliness/isolation [] Abandonment Spirituality of Patient [X] Person of Rita [X] Attends Zoroastrian of their Rita [X] Believes in Prayer [X] Reads Bible or Islam materials [] There are Spiritual issues to be addressed Despatch Clerk Interventions [X] Prayer [X] Active listening [X] Non-anxious presence [] Spiritual/emotional support [] Crisis/trauma care [] Spiritual counseling [] Bereavement support [] Provided bereavement packet [] Provided Bible/devotional materials [] Provided toy/stuffed animal, coloring book to patient or family member [] Provided Communion [] Anointing/[place] [] Salvation [] Completed spiritual assessment [] Other: Impact on Illness or Injury [] Angry [] Fearful [] Anxious [] Often cries [] Exhaustion [] Unable to work [] Unable to attend buddhism [] Unable to walk/stand [] Unable to read [] Unable to drive [] Unable to eat/drink [] Unable to sleep [] Unable to be with family [] Patient intubated [] Other: Summary Prayer and talked Time spent with patient 20 Min
--- NOTE | 2024-08-21 10:37 | PM.DCS ---
Discharge Providers Date of Admission: 08/19/24 12:37 Date of Discharge: August 21, 2024 Attending Provider at Admission: Justin Masters MD Attending Provider at Discharge: David Dela Cruz Primary Care Provider: Alejandrina Omalley Diagnoses at Discharge Discharge Diagnosis (1) Cellulitis of right hand: Status: Acute (2) Diabetes mellitus, type II, insulin dependent: Status: Acute (3) Chronic anticoagulation: Status: Acute Permanent problem details: Xarelto Reason for Visit Reason for Visit: R Hand Infection Hospital Course Hospital Course Pleasant 54-year-old gentleman with history of diabetes, other medical problems was admitted after presenting with redness, swelling of the right mid to distal hand, proximal third finger. Was started on antibiotic treatment with Zosyn vancomycin empirically. Imaging with head CT and MRI revealed diffuse cellulitis along the dorsal surface of the hand and fingers without abscess. Most significantly at the second and third metacarpal and proximal phalanges. No osteomyelitis on contrast-enhanced study. MRSA PCR was obtained and was negative. Redness, swelling showing improvement. He remained afebrile with resolved leukocytosis. With improvement he is discharging home with follow-up with primary provider for reassessment and will complete additional 7 days of antibiotic with cephalexin. He knows to seek medical attention in case of any worsening or any new concerning symptoms. Discharge Data Studies Completed and Pending Completed Studies During Hospitalization Category Date Time Status CT hand RT w con [id number] Stat Cat Scan 08/19/24 04:11 Completed MR hand RT wo/w con [id number] Stat MRI 08/19/24 07:43 Completed Pending at discharge Category Date Time Status Blood Culture Stat Lab 08/19/24 05:41 Results Radiology Impressions Hand CT 08/19/24 04:11 IMPRESSION: 1. Soft tissue edema or cellulitis. 2. No dominant marginated fluid collection or gas. 3. Most likely deep soft tissue involvement and potential fluid or abnormal enhancement extending at peritendinous flexor and extensor compartments. MRI is recommended as the imaging modality of assessment for higher level of soft tissue sensitivity.. Hand MRI 08/19/24 07:43 IMPRESSION: 1. Diffuse cellulitis along the dorsal surface of the hand and fingers. Most significant cellulitis without abscess is associated with the second and third metacarpals and proximal phalanges. 2. No osteomyelitis. 3. No soft tissue abscess. Laboratory Results WBC 9.73 10^3/uL (3.29-11.43) 08/21/24 03:06 RBC 4.25 10^6/uL (3.85-5.65) 08/21/24 03:06 Hgb 11.30 g/dL (11.27-16.99) 08/21/24 03:06 Hct 35.0 % (37-53) L 08/21/24 03:06 MCV 82.4 fl (82-101) 08/21/24 03:06 MCH 26.6 pg (27-33) L 08/21/24 03:06 MCHC 32.3 g/dL (30-55) 08/21/24 03:06 RDW 15.1 % (12.1-15.1) 08/21/24 03:06 Plt Count 175 10^3/cmm (157-399) 08/21/24 03:06 MPV 9.8 fL (7.4-10.4) 08/21/24 03:06 Neut % (Auto) 53.1 % 08/21/24 03:06 Lymph % (Auto) 29.6 % 08/21/24 03:06 [place] % (Auto) 12.8 % 08/21/24 03:06 Eos % (Auto) 3.8 % 08/21/24 03:06 Baso % (Auto) 0.3 % 08/21/24 03:06 Neut # (Auto) 5.16 10^3/uL (1.8-7.7) 08/21/24 03:06 Lymph # (Auto) 2.9 10^3/uL (0.8-4.8) 08/21/24 03:06 [place] # (Auto) 1.3 10^3/uL (0.2-0.9) H 08/21/24 03:06 Eos # (Auto) 0.4 10^3/uL (0.0-0.8) 08/21/24 03:06 Baso # (Auto) 0.0 10^3/uL (0.0-0.1) 08/21/24 03:06 Nucleated RBC % (auto) 0 % 08/21/24 03:06 Nucleated RBCs # 0.0 /100WBC 08/21/24 03:06 Sodium 135 mmol/L (136-145) L 08/21/24 03:06 Potassium 3.9 mmol/L (3.5-5.1) 08/21/24 03:06 Chloride 100 mmol/L (98-107) 08/21/24 03:06 Carbon Dioxide 23 mmol/L (22-29) 08/21/24 03:06 Anion Gap 15.9 (5-19) 08/21/24 03:06 BUN 16 mg/dL (6-20) 08/21/24 03:06 Creatinine 1.0 mg/dL (0.7-1.2) 08/21/24 03:06 GFR Calculation 77.9 mL/min (90-130) L 08/21/24 03:06 Glucose 235 mg/dL (65-115) H 08/21/24 03:06 POC Glucose 213 mg/dL (70-110) H 08/21/24 06:30 Calculated Osmolality 289 mOsm/kg (285-295) 08/21/24 03:06 Calcium 8.9 mg/dL (8.5-10.5) 08/21/24 03:06 Total Bilirubin 0.4 mg/dL (0.15-1.2) 08/19/24 04:27 AST 18 U/L (0-40) 08/19/24 04:27 ALT 24 U/L (0-41) 08/19/24 04:27 Alkaline Phosphatase 88 U/L (40-130) 08/19/24 04:27 C-Reactive Protein 36.1 mg/L (0.0-4.9) H 08/19/24 04:27 Total Protein 7.5 g/dL (6.6-8.7) 08/19/24 04:27 Albumin 3.8 g/dL (3.5-5.2) 08/19/24 04:27 Globulin 3.7 g/dL (1.3-4.6) 08/19/24 04:27 Nasal MRSA (PCR) Not detected (Negative) 08/19/24 16:28 Vancomycin Trough 16.4 ug/mL (10-15) H 08/20/24 13:43 Vitals Last Vital Signs Temp 98.0 F 08/21/24 07:36 Pulse 70 08/21/24 07:36 Resp 16 08/21/24 07:36 BP 131/87 08/21/24 07:36 Pulse Ox 97 08/21/24 07:36 O2 Del Method CPAP 08/21/24 07:36 Discharge Plan Discharge Patient Disposition: Home Condition: Stable Prescriptions: New cephalexin 500 mg capsule 500 mg PO Q6H 7 Days Qty: 28 0RF Continued multivitamin Tablet 1 tab PO DAILY atorvastatin 40 mg tablet 40 mg PO QPM venlafaxine 75 mg capsule,extended release 24hr 75 mg PO DAILY metformin 1,000 mg tablet 1,000 mg PO BID gabapentin 300 mg capsule 600 mg PO BID hydrochlorothiazide 25 mg tablet 25 mg PO DAILY insulin lispro [Humalog KwikPen Insulin] 100 unit/mL insulin pen See Rx Instructions .ROUTE .COMPLEX Rx Instructions: INJECT 40 UNITS IN THE AM, 30 UNITS NEEDED AT NOON, AND 40 UNITS IN THE PM PLUS SLIDING SCALE. Xarelto 20 mg tablet 20 mg PO BEDTIME Trulicity 4.5 mg/0.5 mL pen injector 4.5 mg SUBCUT Q7D Rx Instructions: Friday bupropion HCl 150 mg tablet sustained-release 12 hr 150 mg PO BID metoprolol tartrate 25 mg Tablet 25 mg PO BID@0900,2100 Qty: 60 0RF amlodipine 5 mg tablet 5 mg PO DAILY lisinopril 5 mg tablet 5 mg PO DAILY insulin glargine [Lantus Solostar U-100 Insulin] 100 unit/mL (3 mL) insulin pen 75 unit SUBCUT BID Discharge Orders: Discharge Order (Routine); Ordered 08/21/24 Ordered By: David Dela Cruz Referrals: Ray Langley FNP [Referring] - 08/23/24 10:00 am Discharge Diet: Diabetic Patient Instructions: Cellulitis, Cephalexin (By mouth), Opioid Safety Activity Restrictions/Additional Instructions: Continue glucose monitoring, target glucose 100-150 mg/dL. Continue and complete antibiotic course for cellulitis. Follow-up with your primary provider for reassessment. Contact your primary provider clinic in case of developing diarrhea or rash. Seek medical attention in case of any worsening cellulitis or other new concerning symptoms. Discharge Attestations Time Spent in Discharge Care*: greater than 30 min Status at Discharge: Cognitive status at discharge: cognitively intact, Behavioral status at discharge: cooperative, Quality Metrics Clinical Quality Measures [ No reported AMI, CVA or VTE this stay] Coding Level of Care Code 62692 Total time (in minutes) for Discharge: 40 Diagnoses Cellulitis of right hand L03.113 Diabetes mellitus, type II, insulin dependent E11.9; Z79.4 Chronic anticoagulation Z79.01
--- NOTE | 2024-08-21 11:25 | PC.NURSE ---
Discussed discharged, new medications, watch for fever, chills, heat and worse pain than present. Discussed follow up appointment as well as blood sugar monitoring. Stated to patient family pharmacy will close at 3pm. Patient verbalized understanding.
[2024-08-21 11:28] VITALS: BP 131/87; PULSE 70; RESP 16; TEMP 36.6; O2SAT 97
== END 2024-08-21 11:22 | disposition home or self-care (01) ==
LOC: ER 06:35 → MEDSURG 13:17
PROVIDERS: Emergency Medicine; Admitting Provider Internal Medicine; Emergency Provider Family Medicine; PCP Physician Assistant; Visit Provider Internal Medicine
DX: L03.113 Cellulitis of right upper limb (principal); E11.42 Type 2 diabetes mellitus with diabetic polyneuropathy; Z79.4 Long term (current) use of insulin; Z79.01 Long term (current) use of anticoagulants; Z79.84 Long term (current) use of oral hypoglycemic drugs; G47.33 Obstructive sleep apnea (adult) (pediatric); Z99.89 Dependence on other enabling machines and devices; E78.5 Hyperlipidemia, unspecified; I10 Essential (primary) hypertension; Z87.891 Personal history of nicotine dependence
CPT/HCPCS: 36415; 36416; 73201; 73220; 80048; 80053; 80202; 82962; 85025; 86140; 87040; 87077; 87150; 87186; 87205; 96365; 96366; 96367; 96372; 96375; 99223; 99232; 99285; A9577; G0378; J1815; J2270; J2543; J3370; J7050